=== PATIENT | male | born 1980 | race Two or more races ===

== ENCOUNTER 2024-07-10 08:47 | Inpatient (IN) | payer MEDICAID, OTHER ==
[~2024-07-10] VITALS: Ht 182.9 cm; Wt 79.8 kg
[2024-07-10] VITALS (12 sets, daily range): BP systolic 90–124; BP diastolic 35–75; PULSE 64–113; RESP 14–20; TEMP 98–99; O2SAT 99
--- NOTE | 2024-07-10 09:42 | ED.PDOC ---
GI ASSESSMENT HPI Comments 43 year old male presents to the ED with chief complaint of blood in stool. Patient reports that he has been experiencing blood in his stools with associated mucous, lower back pain, and right leg pain for the past 2 months. Patient relays that he takes Ibuprofen intermittently for his pain. Patient states he does not have a PCP at this time. Patient denies any N/V/D, dizziness, headache, fever, chills, or abdominal pain. Chief Complaint: GI Bleed Time Seen by MD: 09:39 Primary Care Provider: DENIES Reviewed Notes: Nurses Notes, Medications, Allergies Allergies: Coded Allergies: Penicillins (Verified Allergy, Unknown, 07/10/24) Information Source: Patient Mode of Arrival: Ambulatory Timing: Months Duration: Since onset Prehospital treatment: None Vomitus: None Stool: Blood Streaked, Other (Mucous) Severity: Moderate Recent: NSAID'S Recent Hx of: None Pain Location: None Modifying Factors: Nothing Associated sign and symptoms: Blood in Stool Past Medical History PAST MEDICAL HISTORY: Denies Surgical History: Denies all surgeries Family History Family History: Reviewed,noncontributory to illness Social History Smoker: Non-Smoker Alcohol: Denies ETOH Use Drugs: Marijuana Lives In: Home Constitutional: denies: chills, diaphoresis, fatigue, fever, malaise, sweats, weakness, others EENTM: denies: blurred vision, double vision, ear bleeding, ear discharge, ear drainage, ear pain, ear ringing, eye pain, eye redness, hearing loss, mouth pain, mouth swelling, nasal discharge, nose bleeding, nose congestion, nose pain, photophobia, tearing, throat pain, throat swelling, voice changes, others Respiratory: denies: cough, hemoptysis, orthopnea, SOB at rest, shortness of breath, SOB with excertion, stridor, wheezing, others Cardiovascular: denies: chest pain, dizzy spells, diaphoresis, Dyspnea on exertion, edema, irregular heart beat, left arm pain, lightheadedness, palpitations, PND, syncope, others Gastrointestinal: reports: blood streaked bowels; denies: abdomen distended, abdominal pain, constipated, diarrhea, dysphagia, difficulty swallowing, hematemesis, melena, nausea, poor appetite, poor fluid intake, rectal bleeding, rectal pain, vomiting, others Genitourinary: denies: burning, dysuria, flank pain, frequency, hematuria, incontinence, penile discharge, penile sore, pain, testicle pain, testicle swelling, urgency, others Neurological: denies: dizziness, fainting, headache, left sided numbness, left sided weakness, numbness, paresthesia, pre-existing deficit, right sided numbness, right sided weakness, seizure, speech problems, tingling, tremors, weakness, others Musculoskeletal: reports: others (Rt leg pain, lower back pain); denies: back pain, gout, joint pain, joint swelling, muscle pain, muscle stiffness, neck pain Integumetry: denies: bruises, change in color, change in hair/nails, dryness, laceration, lesions, lumps, rash, wounds, others Allergic/Immunocompromised: denies: Difficulty Healing, Frequent Infections, Hives, Itching, others Hematologic/Lymphatic: denies: anemia, blood clots, easy bleeding, easy bruising, swollen glands, others Endocrine: denies: excessive hunger, excessive sweating, excessive thirst, excessive urination, flushing, intolerance to cold, intolerance to heat, unexplained weight gain, unexplained weight loss, others Psychiatric: denies: anxiety, bipolar disorder, depression, hopeless, panic disorder, schizophrenia, sleepless, suicidal, others All Other Systems: Reviewed and Negative Physical Exam General Appearance: Moderate Distress, Normal HEENT: Normal ENT Inspection, PERRL/EOMI Neck: Full Range of Motion, Non-Tender, Normal, Normal Inspection Respiratory: Chest Non-Tender, Lungs Clear, No Accessory Muscle Use, No Respiratory Distress, Normal Breath Sounds Cardiovascular: No Edema, No JVD, No Murmur, No Gallop, Normal Peripheral Pulses, Regular Rate/Rhythm Breast Exam: Deferred Gastrointestinal: No Organomegaly, Non Tender, No Pulsatile Mass, Normal Bowel Sounds, Soft Genitalia: Deferred Pelvic: Deferred Rectal: Deferred Extremities: No calf tenderness, Normal capillary refill, Normal inspection, Normal range of motion, Non-tender, No pedal edema Musculoskeletal : Apperance: Normal Neurologic: Alert, estate conservator II-XII nml as Tested, No Motor Deficits, Normal Affect, Normal Mood, No Sensory Deficits Cerebellar Function: Normal Reflexes: Normal Skin: Dry, Pallor, Warm Peripheral Pulses: 3+ Radial (R), 3+ Radial (L) Lymphatic: No Adenopathy Was a procedure done? Was a procedure done?: No GI differential Dx Differential Diagnosis: Constipation, Diverticular disease, Esophagitis, Gastritis/PUD, Gastroenteritis X-Ray, Labs, Meds, VS Vital Signs Date Time Temp Pulse Resp B/P (MAP) Pulse Ox O2 Delivery O2 Flow Rate FiO2 07/10/24 09:57 16 99 Room Air* 0 21 07/10/24 09:51 91 16 99 Room Air 07/10/24 09:51 98.1 91 16 101/57 (72) 99 98.1 07/10/24 08:57 98.9 93 18 113/71 (85) 99 Lab Test 07/10/24 10:00 Range/Units White Blood Count 4.0 L 4.4-10.8 10^3/uL Red Blood Count 2.88 L 4.5-5.90 10^6/uL Hemoglobin 5.7 *L 13.5-17.5 g/dL Hematocrit 19.8 L 41.0-53.0 % Mean Corpuscular Volume 68.8 L 80.0-100.0 fL Mean Corpuscular Hemoglobin 19.7 L 28.0-32.0 pg Mean Corpuscular Hemoglobin Concent 28.6 L 32.0-36.0 g/dL Red Cell Distribution Width 23.5 H 11.8-14.3 % Platelet Count 467 H 140-450 10^3/uL Mean Platelet Volume 7.8 6.9-10.8 fL Neutrophils (%) (Auto) 37.0-80.0 % Lymphocytes (%) (Auto) 10.0-50.0 % Monocytes (%) (Auto) 0.0-12.0 % Basophils (%) (Auto) 0.0-2.0 % Neutrophils # (Auto) 1.6-8.6 10 ^3/uL Lymphocytes # (Auto) 0.4-5.4 10 ^3/uL Monocytes # (Auto) 0-1.3 10 ^3/uL Differential Total Cells Counted Pending Neutrophils % (Manual) Pending Band Neutrophils % (Manual) Pending Lymphocytes % (Manual) Pending Monocytes % (Manual) Pending Eosinophils % (Manual) Pending Basophils % (Manual) Pending Metamyelocytes % (manual) Pending Myelocytes % (Manual) Pending Promyelocytes % (Manual) Pending Blast Cells % (Manual) Pending Reactive Lymphocytes Pending Platelet Estimate Pending Sodium Level 140 136-145 mmol/L Potassium Level 4.3 3.5-5.1 mmol/L Chloride Level 106 98-107 mmol/L Carbon Dioxide Level 26 20-31 mmol/L Anion Gap 8 5-15 Blood Urea Nitrogen 10 9-23 mg/dL Creatinine 1.21 0.700-1.30 mg/dL Glomerular Filtration Rate Calc 75 >90 mL/min BUN/Creatinine Ratio 8.3 L 10.0-20.0 Serum Glucose 108 H 74-106 mg/dL Calcium Level 10.0 8.7-10.4 mg/dL Current Medications Medications (Trade) Dose Ordered Sig/Aden Route Start Time Stop Time Status Last Admin Pantoprazole Sodium (Protonix) 40 mg ONCE ONCE IV 07/10/24 09:30 07/10/24 09:32 DC 07/10/24 09:52 Patient alert. Complaining of bleeding per rectum. Vitals stable. Answering questions. Hemoglobin is low. Blood transfusion. Was given Protonix. Colonoscopy. GI consultation. Reviewed his history. Explained to the patient. Continue cardiac monitoring. Time of 1ST Reevaluation: 10:39 Reevaluation 1ST: Unchanged Patient Education/Counseling: Diagnosis, Treatment Family Education/Counseling: No Family Present Additional Information I reviewed the following notes from patient's past medical encounters: None The following tests were ordered, and results were reviewed by me: BMP, CBC Additional Information was gathered from interviewing the following independent historians: None I reviewed and agreed with the following test results read by other providers: None I discussed treatment and results with medical personnel. Departure 1 Departure Time of Disposition: 11:42 Impression: Primary Impression: GI bleed Qualified Codes: K92.2 - Gastrointestinal hemorrhage, unspecified Additional Impression: Severe anemia Disposition: ADMITTED INPATIENT Admit to: Med Surg Condition: Guarded Critical Care Note Critical Care Time?: Yes (90 min-critical care time only) Stability Stability form required: No Heart Score Heart Score: Heart Score Response (Comments) Value History N/A 0 EKG N/A 0 Age N/A 0 Risk Factors N/A 0 Troponin N/A 0 Total 0 I personally scribed for ANNETTE BRIGHT MD ([email or web address]) on 07/10/24 at 09:42. Electronically submitted by Han Velázquez ([email or web address]). ANNETTE BRIGHT MD Jul 10, 2024 09:42
[2024-07-10] MEDS: PANTOPRAZOLE 40 MG/10 ML VIAL INJ IV ONE (09:52)
[2024-07-10 10:38] LABS: Chloride 106 mmol/L (98-107); Hematocrit 19.8 % (41.0-53.0); Mean Corpuscular Hemoglobin 19.7 pg (28.0-32.0); Mean Corpuscular Hgb Conc. 28.6 g/dL (32.0-36.0); Mean Corpuscular Volume 68.8 fL (80.0-100.0); Platelet Count (auto) 467 10^3/uL (140-450); Potassium 4.3 mmol/L (3.5-5.1); Red Blood Cells 2.88 10^6/uL (4.5-5.90); Sodium 140 mmol/L (136-145)
[2024-07-10 10:39] LABS: Anion Gap 8 (5-15); Carbon Dioxide 26 mmol/L (20-31)
[2024-07-10 10:43] LABS: Red Cell Distribution Width 23.5 % (11.8-14.3)
[2024-07-10 10:44] LABS: BUN/Creatinine Ratio 8.3 (10.0-20.0); Band Neutrophils % (manual) 0; Basophils % (manual) 0 (0.0-2.0); Blast Cells 0; Blood Urea Nitrogen 10 mg/dL (9-23); Hemoglobin 5.7 g/dL (13.5-17.5); Metamyelocytes % 0; Myelocytes % 0; Promyelocytes % 0; Reactive Lymphocytes 0
[2024-07-10 10:45] LABS: Glucose 108 mg/dL (74-106)
[2024-07-10 12:22] LABS: Eosinophils % (manual) 2 (0-7); Lymphocytes % (manual) 15 (10.0-50.0); Monocytes % (manual) 7 (0-12)
[2024-07-10 12:23] LABS: Hypochromia Marked; Platelet Estimate Adequate
[2024-07-10 12:24] LABS: Anisocytosis Slight
[2024-07-10] MEDS ORDERED: ONDANSETRON HCL 4 MG/2 ML VIAL IV PRN (15:00)
[2024-07-10] MEDS ORDERED: ACETAMINOPHEN 325 MG TAB PO PRN (15:00)
--- NOTE | 2024-07-10 15:01 | DVHHP2 ---
History of Present Illness Reason for Visit: Blood in stool History of Present Illness Jett Padilla is a 43-year-old male with past medical history of left kidney tumor and hemorrhoids who presents to the ED for blood in stool, right leg pain, back pain, and fatigue x2 months. Patient reports that he did not come in to the ED sooner because he had no insurance also has not seen a primary care physician. Patient states that he has been passing large clots daily with his bowel movements. Patient denies any chest pain, shortness of breath, recent trauma or injury, recent illness, nausea, vomiting, fevers, chills, dizziness, and lightheadedness. GI: Hemorrhoids Renal/: Other (Left kidney tumor) Past Surgical History: None Family History: Cancer, Other (Grandfather with prostate cancer) Smoke: Quit ALCOHOL: none Drugs: Other (Quit marijuana) Lives: with Family Domestic Violence: Neg Review of Systems Constitutional: Yes: Other (Fatigue); No: Fever, Chills, Sweats, Weakness, Malaise Eyes: No: Pain, Vision change, Conjunctivae inflammation, Eyelid inflammation, Other, Redness ENT: No: Ear pain, Ear discharge, Nose pain, Nose discharge, Nose congestion, Mouth pain, Mouth swelling, Throat pain, Throat swelling, Other Respiratory: No: Cough, Dry, Shortness of breath, SOB with excertion, Wheezing, Hemoptysis, Pleuritic Pain, Sputum, Wheezing, Other Cardiovascular: No: Chest Pain, Palpitations, Orthopnea, Paroxysmal Noc. Dyspnea, Edema, Lt Headedness, Other Gastrointestinal: Hematochezia; No: Nausea, Vomiting, Abdominal Pain, Diarrhea, Constipation, Melena, Other Genitourinary: No Dysuria, No Frequency, No Incontinence, No Hematuria, No Retention, No Other Musculoskeletal: back pain, leg pain; No: other, neck pain, shoulder pain, arm pain, hand pain, foot pain Skin: No: Rash, Lesions, Jaundice, Bruising, Other Neurological: No: Weakness, Numbness, Incoordination, Change in speech, Confusion, Seizures, Other Allergies: Coded Allergies: Penicillins (Verified Allergy, Unknown, 07/10/24) Exam Vital Signs Vital Signs Date Time Temp Pulse Resp B/P (MAP) Pulse Ox O2 Delivery O2 Flow Rate FiO2 07/10/24 12:43 98.2 76 16 111/60 (77) 99 98.2 07/10/24 09:57 Room Air* 0 21 General Appearance: Alert, Oriented X3, Cooperative, No acute distress HEENT: Atraumatic, PERRLA, EOMI, Mucous membr. moist/pink Respiratory: Clear to auscultation, Normal air movement Cardiovascular: Regular rate, Normal S1, Normal S2, No murmurs Abdominal: Normal bowel sounds, Soft, No tenderness, No hepatospenomegaly, No masses Extremities: No clubbing, No cyanosis, No edema, Normal pulses, No tenderness/swelling Skin: No rashes, No breakdown, No significant lesion Neuro: Normal gait, Normal speech, Strength at 5/5 X4 ext, Normal tone, Sensation intact Psych/Mental Status: Mental status NL, Mood NL Labs/Xrays Labs Test 07/10/24 10:00 Range/Units White Blood Count 4.0 L 4.4-10.8 10^3/uL Red Blood Count 2.88 L 4.5-5.90 10^6/uL Hemoglobin 5.7 *L 13.5-17.5 g/dL Hematocrit 19.8 L 41.0-53.0 % Mean Corpuscular Volume 68.8 L 80.0-100.0 fL Mean Corpuscular Hemoglobin 19.7 L 28.0-32.0 pg Mean Corpuscular Hemoglobin Concent 28.6 L 32.0-36.0 g/dL Red Cell Distribution Width 23.5 H 11.8-14.3 % Platelet Count 467 H 140-450 10^3/uL Mean Platelet Volume 7.8 6.9-10.8 fL Neutrophils (%) (Auto) 37.0-80.0 % Lymphocytes (%) (Auto) 10.0-50.0 % Monocytes (%) (Auto) 0.0-12.0 % Basophils (%) (Auto) 0.0-2.0 % Neutrophils # (Auto) 1.6-8.6 10 ^3/uL Lymphocytes # (Auto) 0.4-5.4 10 ^3/uL Monocytes # (Auto) 0-1.3 10 ^3/uL Differential Total Cells Counted 100.0 100 Neutrophils % (Manual) 76 37.0-80.0 Band Neutrophils % (Manual) 0 Lymphocytes % (Manual) 15 10.0-50.0 Monocytes % (Manual) 7 0-12 Eosinophils % (Manual) 2 0-7 Basophils % (Manual) 0 0.0-2.0 Metamyelocytes % (manual) 0 Myelocytes % (Manual) 0 Promyelocytes % (Manual) 0 Blast Cells % (Manual) 0 Reactive Lymphocytes 0 Platelet Estimate Adequate Hypochromasia (manual) Marked Anisocytosis (manual) Slight Microcytosis Marked Sodium Level 140 136-145 mmol/L Potassium Level 4.3 3.5-5.1 mmol/L Chloride Level 106 98-107 mmol/L Carbon Dioxide Level 26 20-31 mmol/L Anion Gap 8 5-15 Blood Urea Nitrogen 10 9-23 mg/dL Creatinine 1.21 0.700-1.30 mg/dL Glomerular Filtration Rate Calc 75 >90 mL/min BUN/Creatinine Ratio 8.3 L 10.0-20.0 Serum Glucose 108 H 74-106 mg/dL Calcium Level 10.0 8.7-10.4 mg/dL Assessment/Plan Assessment/Plan Assessment/Plan: Rule out GIB Right leg pain Intractable back pain Hematochezia Type and screen PRBC transfuse for hemoglobin less than 7.0 Protonix given in ED Stool occult Labs A.m. labs GI consult Antiemetics Pain management UA CT A/P History of hemorrhoids Follow up outpatient with PCP History of left kidney tumor Follow up outpatient with PCP FEN/PPX NPO IVf PUD prophylaxis-Protonix DVT ppx -patient bleeding held Admit to med surg Discussed plan of care with patient and nurse No home medications to reconcile Plan discussed with: Patient My Orders Orders - ARANZA MAJOR SURGICAL MANAGER Procedure Category Date Status Time * Gi D[facility] [place] [facility] Puncher CONS 07/10/24 Transmitted 14:29 Stool Occult Blood LAB 07/10/24 Logged 14:29 Admit ADMIT 07/10/24 Verified 14:47 Allergies MENDOZA 07/10/24 Verified 14:47 Code Status CODE 07/10/24 Verified 14:47 0.9% Ns 1000 Ml PHA 07/10/24 Verified 15:00 Hydrocodone-Acet PHA 07/10/24 Verified 5/325mg Tab ([place] 15:00 Ondansetron Hcl PHA 07/10/24 Verified (Zofran) 15:00 Complete Blood Count LAB 07/11/24 Verified 04:00 Comprehensive LAB 07/11/24 Verified Metabolic Panel 04:00 Npo (Nothing By DIET 07/10/24 Verified Mouth) Diet Dinner Acetaminophen Tablet PHA 07/10/24 Verified (Tylenol Tablet) 15:00 Date of Service: Jul 10, 2024 Billing Provider: ARANZA MAJOR Common Visit Codes: [id number] INP/OBS CARE (HIGH) RAANZA MAJOR Jul 10, 2024 15:01
[2024-07-10 19:03] LABS: Urine Bacteria None Seen /hpf (None Seen)
[2024-07-10] MEDS: SODIUM CHLORIDE 0.9% 1,000 ML IV SCH (19:15)
[2024-07-10 19:37] LABS: Urine Blood Negative /uL (Negative); Urine Clarity Clear (Clear); Urine Color Colorless (Yellow); Urine Protein, UAD Negative (Negative); Urine Specific Gravity 1.011 (1.001-1.035); Urine Squamous Epithelial Cell None Seen /hpf (<5); Urine Urobilinogen Normal (Negative); Urine WBC <1 /hpf (0 - 3)
--- NOTE | 2024-07-10 19:39 | DVH ---
Exam: CT CT AB PEL WO CON-NO ORAL OR IV History: pain Comparison Study: None TECHNIQUE: Multidetector CT of the abdomen and pelvis was performed from lung bases to pubic symphysi s. Imaging was performed without IV contrast. Axial, coronal, and sagittal multiplanar reformats were obtained from the axial data set by the technologist. RADIATION DOSE: DLP 368.11 mGy.cm; CTDI vol 7.04 mGy. Findings: Limited evaluation given noncontrast technique. Lungs: The lung bases are clear. Heart: No cardiomegaly or pericardial effusion. Liver: The liver measures 18.8 cm in craniocaudal dimension. Gallbladder: Unremarkable. Spleen: Unremarkable Pancreas: Unremarkable Adrenals: Unremarkable Kidneys: Left renal exophytic lesion is incompletely characterized given noncontrast technique. GI tract: Unremarkable : Unremarkable. Vasculature: Unremarkable Lymphadenopathy: Absent Peritoneum: No ascites Musculoskeletal: Mild multilevel degenerative changes of the thoracolumbar spine. Grade 1 retrolisthe sis of L5 on S1 with severe degenerative disc disease. Soft tissues: Unremarkable Impression: 1. Limited evaluation given noncontrast technique. 2. No acute abdominopelvic abnormalities. 3. Hepatomegaly. 4. Left renal exophytic lesion is incompletely characterized given noncontrast technique. Consider a nonemergent, outpatient renal protocol CT for further evaluation.
[2024-07-10 22:06] LABS: Basophils # (auto) 0.1 10 ^3/uL (0-0.2); Eosinophils # (auto) 0.1 10 ^3/uL (0-0.8); Eosinophils % (auto) 1.5 % (0.0-7.0); Mean Corpuscular Volume 73.1 fL (80.0-100.0); Nucleated Red Blood Cells % 0.2 %; Red Blood Cells 3.62 10^6/uL (4.5-5.90); White Blood Cell 5.2 10^3/uL (4.4-10.8)
[2024-07-10 22:08] LABS: Basophils % (auto) 1.1 % (0.0-2.0); Hematocrit 26.4 % (41.0-53.0); Lymphocytes # (auto) 1.6 10 ^3/uL (0.4-5.4); Lymphocytes % (auto) 31.3 % (10.0-50.0); Mean Corpuscular Hemoglobin 22.1 pg (28.0-32.0); Mean Corpuscular Hgb Conc. 30.2 g/dL (32.0-36.0); Monocytes # (auto) 0.5 10 ^3/uL (0-1.3); Monocytes % (auto) 10.1 % (0.0-12.0); Neutrophils # (auto) 2.9 10 ^3/uL (1.6-8.6); Platelet Count (auto) 403 10^3/uL (140-450)
[2024-07-10 22:44] LABS: Red Cell Distribution Width 23.3 % (11.8-14.3)
[2024-07-11 07:31] LABS: Alanine Aminotransferase 21 U/L (7-40); Albumin 4.3 g/dL (3.2-4.8); Anion Gap 6 (5-15); BUN/Creatinine Ratio 10.1 (10.0-20.0); Blood Urea Nitrogen 10 mg/dL (9-23); Calcium 9.9 mg/dL (8.7-10.4); Carbon Dioxide 27 mmol/L (20-31); Glucose 88 mg/dL (74-106); Potassium 4.2 mmol/L (3.5-5.1); Sodium 141 mmol/L (136-145)
[2024-07-11 07:32] LABS: Alkaline Phosphatase 45 U/L (46-116); Aspartate Aminotransferase 12 U/L (13-40); Bilirubin, Total 1.5 mg/dL (0.2-1.0); Chloride 108 mmol/L (98-107); Total Protein 6.7 g/dL (5.7-8.2)
[2024-07-11 07:34] LABS: Hematocrit 25.6 % (41.0-53.0); Hemoglobin 7.8 g/dL (13.5-17.5); Mean Corpuscular Hemoglobin 22.1 pg (28.0-32.0); Mean Corpuscular Hgb Conc. 30.4 g/dL (32.0-36.0); Mean Corpuscular Volume 72.7 fL (80.0-100.0); Platelet Count (auto) 393 10^3/uL (140-450); Red Blood Cells 3.51 10^6/uL (4.5-5.90); Red Cell Distribution Width 23.7 % (11.8-14.3); White Blood Cell 5.2 10^3/uL (4.4-10.8)
[2024-07-11 07:45] LABS: Band Neutrophils % (manual) 0; Basophils % (manual) 0 (0.0-2.0); Blast Cells 0; Metamyelocytes % 0; Myelocytes % 0; Promyelocytes % 0; Reactive Lymphocytes 0
[2024-07-11 08:44] LABS: Eosinophils % (manual) 2 (0-7); Hypochromia Moderate; Lymphocytes % (manual) 25 (10.0-50.0); Monocytes % (manual) 8 (0-12)
[2024-07-11 08:45] LABS: Anisocytosis Slight
[2024-07-11 08:47] LABS: Platelet Estimate Adequate
[2024-07-11] MEDS: PANTOPRAZOLE 40 MG/10 ML VIAL INJ IV SCH ×2 (10:20→21:35)
--- NOTE | 2024-07-11 13:08 | DVH ---
INDICATION: ruq u/s - eval bile duct for elevated LFTs TECHNIQUE: Multiple real-time sonographic images of the abdomen were obtained. COMPARISON: 07/10/2024 FINDINGS: The liver is homogenous in echogenicity. The liver measures 15cm. No intrahepatic biliary ductal dilatation is noted. The gallbladder wall measures 0.2 cm and is unremarkable. No gallstones or sludge is seen. The com mon duct measures 0.2 cm and is unremarkable. No pericholecystic fluid is noted. The right kidney measures 11.7 cm. No hydronephrosis. The left kidney measures 11.6 cm. No hydronep hrosis. There is a mass in the left kidney measuring 3.5 cm. The spleen measures 10.0 cm, within normal limits. The echogenicity is within normal limits. The pancreas is not well visualized due to obscuration from bowel gas. The visualized portions of the IVC and aorta are grossly unremarkable. IMPRESSION: Mass in the left kidney measures 3.5 cm and appears solid and indeterminate. Recommend further evalu ation with CT or MRI renal protocol.
--- NOTE | 2024-07-11 13:13 | DVHPN2 ---
Subjective 07/11- Patient, status post 2 units PRBC. Stable. Patient asymptomatic. Continues to when he has moment. He is noticed that his have been constipated side. He also has various colors of, blood. He red blood, dark blood, melena. Denies taking iron tablets. He takes pain pills, ibuprofen twice monthly strengthening. Denied any history IV drug use or dependence. Reviewed: H&P Changes from previous H/P or p: No Changes General: Per HPI Objective Vitals Vital Signs Date Time Temp Pulse Resp B/P (MAP) Pulse Ox O2 Delivery O2 Flow Rate FiO2 07/11/24 12:06 66 16 122/69 (86) 99 07/11/24 12:01 98.6 98.6 07/10/24 19:55 Room Air* 0 21 Intake/Output Intake and Output 07/11/24 07:00 Intake Total 1320 ml Output Total 800 ml Balance 520 ml Intake Oral 120 ml Blood Product 1200 ml Output Urine Total 800 ml # Voids 2 Exam GEN: Healthy appearing, well-developed, NAD. HEENT: NC/AT; MMM. CV: RRR, no m/r/g. LUNGS: CTAB, no w/r/c. ABD: Soft, NT/ND, NBS, no masses or organomegaly. EXT: skin Warm, well perfused. no rashes. No clubbing, cyanosis, or edema. P araspinal tenderness on left L4 NEURO: Ambulating with no limitations. No focal deficits. Medications Current Medications Medications Dose Ordered Sig/Aden Route Start Time Stop Time Status Last Admin Dose Admin Sodium Chloride 1,000 ml @ 70 mls/hr [id number] IV 07/10/24 15:00 07/10/24 19:15 70 MLS/HR Acetaminophen/ Hydrocodone Bitart 1 tab Q4HP PRN PO 07/10/24 15:00 Ondansetron HCl 4 mg Q4HP PRN IV 07/10/24 15:00 Acetaminophen 650 mg Q6HP PRN PO 07/10/24 15:00 Pantoprazole Sodium 40 mg BID IV 07/11/24 22:00 Laboratory Results Laboratory Tests 07/11/24 05:53 Chemistry Test 07/11/24 05:53 Albumin 4.3 g/dL (3.2-4.8) Calcium Level 9.9 mg/dL (8.7-10.4) Total Protein 6.7 g/dL (5.7-8.2) LFT Test 07/11/24 05:53 Alanine Aminotransferase (ALT) 21 U/L (7-40) Alkaline Phosphatase 45 U/L (46-116) L Aspartate Amino Transferase (AST) 12 U/L (13-40) L Total Bilirubin 1.5 mg/dL (0.2-1.0) H Urinalysis Test 07/10/24 18:44 Urine Color Colorless (Yellow) Urine Clarity Clear (Clear) Urine pH 7.0 (5.0-9.0) Urine Specific [place] 1.011 (1.001-1.035) Urine Protein Negative (Negative) Urine Ketones Negative (Negative) Urine Blood Negative /uL (Negative) Urine Nitrite Negative (Negative) Urine Bilirubin Negative (Negative) Urine Urobilinogen Normal mg/dL (Negative) Urine Leukocyte Esterase Negative /uL (Negative) Urine RBC None seen /hpf (0 - 3) Urine WBC <1 /hpf (0 - 3) Urine Squamous Epithelial Cells None seen /hpf (<5) Urine Bacteria None seen /hpf (None Seen) Urine Glucose Normal mg/dL (Normal) Labs and/or images reviewed: Labs reviewed by me, Image(s) reviewed by me Assessment/Plan Assessment/Plan # ABLa: Hemoglobin 5.7 on admit, typed/screened and given 2 units PRBC on follow-up 8.0 stable. Two large-bore IVs. Stool occult blood pending. Clear liquid diet, GI consulted. IV PPI b.i.d. started. CT abdomen pelvis done without con, no acute findings and cant find source of bleeding. # hepatomegaly: CT abdomen on admit showing hepatomegaly. # Severe anemia, status post transfusion: See above # Acute on chronic lower GI bleed: See above # hyperbilirubinemia: T bili 1.5, elevated We will get RUQ ultrasound. hep panel pend # Chronic constipation: We will consider outpatient bowel regimen. # history of hemorrhoids: Diet CLD DVT prophylaxis ambulating GI prophylaxis PPI IV b.i.d. Med [facility] Full Code Plan discussed with: Patient My Orders Orders - DYLON CELIS MD Procedure Category Date Status Time Pantoprazole PHA 07/11/24 In Process (Protonix) 22:00 Abdomen Complete US 1/16/25 Taken Sonogram 11:23 Clear Liq Diet DIET 07/11/24 Verified Lunch Date of Service: Jul 11, 2024 Billing Provider: DYLON CELIS MD Common Visit Codes: [id number] INP/OBS CARE(HIGH) DYLON CELIS MD Jul 11, 2024 13:13
[2024-07-11 15:56] VITALS: BP 106/63; PULSE 58; RESP 16; TEMP 98.2; O2SAT 100
[2024-07-11 17:03] VITALS: BP 118/78; PULSE 68; RESP 16; TEMP 98.4; O2SAT 99
[2024-07-11 20:00] VITALS: PULSE 57; RESP 18; O2SAT 100
[2024-07-11 21:00] VITALS: BP 116/76; PULSE 57; RESP 18; TEMP 98; O2SAT 100
[2024-07-12] VITALS (7 sets, daily range): BP systolic 101–116; BP diastolic 57–76; PULSE 53–77; RESP 18–20; TEMP 97.8–98.4; O2SAT 98–100
[2024-07-12 07:07] LABS: Eosinophils # (auto) 0.1 10 ^3/uL (0-0.8); Hemoglobin 8.2 g/dL (13.5-17.5); Lymphocytes # (auto) 0.8 10 ^3/uL (0.4-5.4); Monocytes # (auto) 0.5 10 ^3/uL (0-1.3)
[2024-07-12 07:09] LABS: Basophils # (auto) 0.1 10 ^3/uL (0-0.2); Basophils % (auto) 1.4 % (0.0-2.0); Eosinophils % (auto) 2.1 % (0.0-7.0); Hematocrit 26.8 % (41.0-53.0); Lymphocytes % (auto) 19.3 % (10.0-50.0); Mean Corpuscular Hgb Conc. 30.6 g/dL (32.0-36.0); Mean Corpuscular Volume 71.9 fL (80.0-100.0); Monocytes % (auto) 11.8 % (0.0-12.0); Neutrophils # (auto) 2.6 10 ^3/uL (1.6-8.6); Neutrophils % (auto) 65.4 % (37.0-80.0); Nucleated Red Blood Cells % 0.5 %; Platelet Count (auto) 395 10^3/uL (140-450); Red Blood Cells 3.73 10^6/uL (4.5-5.90); Red Cell Distribution Width 24.5 % (11.8-14.3); White Blood Cell 3.9 10^3/uL (4.4-10.8)
[2024-07-12 07:23] LABS: Alanine Aminotransferase 21 U/L (7-40); Anion Gap 7 (5-15); BUN/Creatinine Ratio 9.1 (10.0-20.0); Blood Urea Nitrogen 9 mg/dL (9-23); Calcium 10.3 mg/dL (8.7-10.4); Carbon Dioxide 26 mmol/L (20-31); Chloride 106 mmol/L (98-107); Potassium 4.1 mmol/L (3.5-5.1); Sodium 139 mmol/L (136-145)
[2024-07-12 07:24] LABS: Albumin 4.6 g/dL (3.2-4.8); Aspartate Aminotransferase 16 U/L (13-40); Bilirubin, Total 0.9 mg/dL (0.2-1.0)
[2024-07-12 07:53] LABS: Alkaline Phosphatase 45 U/L (46-116); Glucose 80 mg/dL (74-106)
--- NOTE | 2024-07-12 10:57 | DVHCONRES ---
Date Seen: Jul 12, 2024 Resident Creating Document: RYLAND TODD RESIDENT Referring Physician Dr. Bagley. Reason for Consultation GI bleed. History of Present Illness Jett Padilla, a 43-year-old male with a history of a left kidney tumor and hemorrhoids, presents to the ED with blood in his stool, right leg pain, back pain, and fatigue for the past two months. He delayed seeking medical care due to lack of insurance and has not seen a primary care physician. He reports passing large clots daily with bowel movements but denies chest pain, shortness of breath, recent trauma, illness, nausea, vomiting, fevers, chills, dizziness, and lightheadedness. His past medical history includes hemorrhoids and a left kidney tumor, with no past surgeries. He has a family history of cancer (grandfather with prostate cancer), has quit smoking and marijuana, does not consume alcohol, and lives with his family. Patient previously was evaluated and followed in the [facility] for hemorrhoidectomy for the symptomatic hemorrhoids but could not further follow up due to the lack of insurance and homelessness. Past Medical History GI: Hemorrhoids since 2018 Renal/: Other (Left kidney tumor) Back pain Past Surgical History Denies. Family History: Patient reports no known family medical history. Family History NO GI cancer history but grandfather had prostate cancer Allergies: Coded Allergies: Penicillins (Verified Allergy, Unknown, 07/10/24) Home Meds Active Scripts Psyllium (Metamucil) 0.36 Gm Cap, 0.36 GM PO BID for 30 Days, #60 CAP 0 Refills Prov:DYLON CELIS MD 07/12/24 Lactulose (Lactulose) 10 Gm/15 Ml Arlene, 10 GM PO DAILY for 14 Days, #236 ML 0 Refills Prov:DYLON CELIS MD 07/12/24 Current Medications Current Medications Medications (Trade) Dose Ordered Sig/Aden Route PRN Reason Start Time Stop Time Status Last Admin Pantoprazole Sodium (Protonix) 40 mg BID IV 07/11/24 22:00 07/12/24 09:35 Review of Systems CONSTITUTIONAL: Fever, night sweats, weight loss, Lymphadenopathy, ecchymoses, fatigue: Negative DERMATOLOGIC: Rash, New/growing/changing skin lesions: Negative HEENT: Vision change, eye pain, Rhinorrhea, sinus pain, epistaxis, dysphagia, odynophagia, globus sensation, Change in hearing, tinnitus, vertigo, otalgia, Dental problems, oral ulcers or lesions: : Negative ENDOCRINE: Weight change, heat or cold intolerance, tremor, insomnia, neck pain or swelling, Polyuria, polydipsia, polyphagia, Abnormal hair growth, change in nails: Negative CARDIOVASCULAR: Chest pain, palpitations, syncope, Edema, cyanosis, claudic ation, Orthopnea, paroxysmal nocturnal dyspnea: Negative PULMONARY: Shortness of breath, dyspnea with exertion, Cough, hemoptysis, wheezing, chest pain : Negative GI: Nausea, vomiting, diarrhea, melena, hematochezia, Change in appetite, abdominal pain, change in bowel habits or stools : Dysuria, frequency, urgency, Urinary incontinence, hematuria, foamy urine, nocturia, Change in libido, erectile dysfunction, Change in menses, dysmenorrhea, dyspaerunia, pelvic pain: : Negative MUSCULOSKELETAL: Joint swelling or pain, muscle pain, back pain: NEUROLOGIC: Headache, scotoma, Change in smell or taste, change in facial muscles, Muscle weakness, paresthesias, anesthesia, Ataxia, change in speech: Negative PSYCHIATRIC: Depression, anxiety, hallucinations, dipti, suicidal/homicidal thoughts, Binging, purging: Negative Vital Signs Vital Signs Date Time Temp Pulse Resp B/P (MAP) Pulse Ox O2 Delivery O2 Flow Rate FiO2 07/12/24 09:00 98.1 71 20 103/76 (85) 100 98.1 07/12/24 08:00 Room Air* 0 21 Physical Exam GENERAL APPEARANCE: Well developed, well nourished, alert and cooperative, and appears to be in no acute distress. HEENT: Oral cavity and pharynx normal. No inflammation, swelling, exudate, or lesions. Teeth and gingiva in good general condition. NECK: Neck supple, non-tender without lymphadenopathy, masses or thyromegaly. CARDIAC: Normal S1 and S2. No S3, S4 or murmurs. Rhythm is regular. There is no peripheral edema, cyanosis or pallor. Extremities are warm and well perfused. Capillary refill is less than 2 seconds. No carotid bruits. LUNGS: Clear to auscultation and percussion without rales, rhonchi, wheezing or diminished breath sounds. ABDOMEN: Positive bowel sounds. Soft, nondistended, nontender. No guarding or rebound. No masses. MUSKULOSKELETAL: Adequately aligned spine. ROM intact spine and extremities. No joint erythema or tenderness. Normal muscular development. Normal gait. EXTREMITIES: No significant deformity or joint abnormality. No edema. Peripheral pulses intact. No varicosities. NEUROLOGICAL: CN II-XII intact. Strength and sensation symmetric and intact throughout. Reflexes 2+ throughout. Cerebellar testing normal. PSYCHIATRIC: The mental examination revealed the patient was oriented to person, place, and time. The patient was able to demonstrate good judgement and reason, without hallucinations, abnormal affect or abnormal behaviors during the examina tion. Patient is not suicidal. Labs/Diagnostic Data Labs Test 07/12/24 06:22 07/11/24 12:49 07/11/24 05:53 07/10/24 18:44 Range/Units White Blood Count 3.9 L 4.4-10.8 10^3/uL Red Blood Count 3.73 L 4.5-5.90 10^6/uL Hemoglobin 8.2 L 13.5-17.5 g/dL Hematocrit 26.8 L 41.0-53.0 % Mean Corpuscular Volume 71.9 L 80.0-100.0 fL Mean Corpuscular Hemoglobin 22.0 L 28.0-32.0 pg Mean Corpuscular Hemoglobin Concent 30.6 L 32.0-36.0 g/dL Red Cell Distribution Width 24.5 H 11.8-14.3 % Platelet Count 395 140-450 10^3/uL Mean Platelet Volume 8.0 6.9-10.8 fL Neutrophils (%) (Auto) 65.4 37.0-80.0 % Lymphocytes (%) (Auto) 19.3 10.0-50.0 % Monocytes (%) (Auto) 11.8 0.0-12.0 % Eosinophils (%) (Auto) 2.1 0.0-7.0 % Basophils (%) (Auto) 1.4 0.0-2.0 % Neutrophils # (Auto) 2.6 1.6-8.6 10 ^3/uL Lymphocytes # (Auto) 0.8 0.4-5.4 10 ^3/uL Monocytes # (Auto) 0.5 0-1.3 10 ^3/uL Eosinophils # (Auto) 0.1 0-0.8 10 ^3/uL Basophils # (Auto) 0.1 0-0.2 10 ^3/uL Nucleated Red Blood Cells 0.5 % Sodium Level 139 136-145 mmol/L Potassium Level 4.1 3.5-5.1 mmol/L Chloride Level 106 98-107 mmol/L Carbon Dioxide Level 26 20-31 mmol/L Anion Gap 7 5-15 Blood Urea Nitrogen 9 9-23 mg/dL Creatinine 0.99 0.700-1.30 mg/dL Glomerular Filtration Rate Calc 96 >90 mL/min BUN/Creatinine Ratio 9.1 L 10.0-20.0 Serum Glucose 80 74-106 mg/dL Calcium Level 10.3 8.7-10.4 mg/dL Total Bilirubin 0.9 0.2-1.0 mg/dL Aspartate Amino Transferase (AST) 16 13-40 U/L Alanine Aminotransferase (ALT) 21 7-40 U/L Alkaline Phosphatase 45 L 46-116 U/L Total Protein 7.0 5.7-8.2 g/dL Albumin 4.6 3.2-4.8 g/dL Stool Occult Blood Positive Negative Stool Occult Blood Sample #3 Negative Differential Total Cells Counted 100.0 100 Neutrophils % (Manual) 65 37.0-80.0 Band Neutrophils % (Manual) 0 Lymphocytes % (Manual) 25 10.0-50.0 Monocytes % (Manual) 8 0-12 Eosinophils % (Manual) 2 0-7 Basophils % (Manual) 0 0.0-2.0 Metamyelocytes % (manual) 0 Myelocytes % (Manual) 0 Promyelocytes % (Manual) 0 Blast Cells % (Manual) 0 Reactive Lymphocytes 0 Platelet Estimate Adequate Hypochromasia (manual) Moderate Anisocytosis (manual) Slight Microcytosis Moderate Schistocytes Few Urine Color Colorless Yellow Urine Clarity Clear Clear Urine pH 7.0 5.0-9.0 Urine Specific [place] 1.011 1.001-1.035 Urine Protein Negative Negative Urine Ketones Negative Negative Urine Blood Negative Negative /uL Urine Nitrite Negative Negative Urine Bilirubin Negative Negative Urine Urobilinogen Normal Negative mg/dL Urine Leukocyte Esterase Negative Negative /uL Urine RBC None seen 0 - 3 /hpf Urine WBC <1 0 - 3 /hpf Urine Squamous Epithelial Cells None seen <5 /hpf Urine Bacteria None seen None Seen /hpf Urine Glucose Normal Normal mg/dL Assessment GI Assessment: # chronic constipation # hemorrhoidal bleed # symptomatic anemia # hepatomegaly # 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 # hyperbilirubinemia improved. # chronic back pain # mild malnutrition # homelessness Plan/Recommendation GI Plan: # Medications: As needed MiraLax 17 g daily # Diet: HIgh fiber mechanical soft diet to continue. # plan procedure: Obtain scope results from [facility]. Scheduled colon cancer screening colonoscopy pending. # Labs: Follow the hepatitis panel. # please schedule follow up with GI as outpatient with Dr. Anaya in 1-2 weeks. # please follow with general surgery outpatient to evaluate for hemorrhoidectomy. Thank you so much for the opportunity to consult on your patient. GI team signing off the patient. In case of any questions or concerns please feel free to reach out. Case an action plan discussed with Dr. Lori Anaya. Complex care planning needed total 49 minutes of detailed discussion. The patient and caregiver team agreed to the plan. Plan discussed with: Patient, Other RYLAND TODD RESIDENT Jul 12, 2024 10:57
[2024-07-12] MEDS ORDERED: LACT10SO3 PO (14:03)
[2024-07-12] MEDS ORDERED: PSYL0.524 PO (14:03)
--- NOTE | 2024-07-12 14:32 | DVHDS2 ---
Discharge Summary Date of Admission Jul 10, 2024 at 14:47 Date of Discharge: Jul 12, 2024 Admitting Diagnosis severe anemia Labs/Diagnostic Data: Laboratory Results Test 07/12/24 06:22 07/11/24 12:49 07/11/24 05:53 07/10/24 18:44 White Blood Count 3.9 10^3/uL (4.4-10.8) Red Blood Count 3.73 10^6/uL (4.5-5.90) Hemoglobin 8.2 g/dL (13.5-17.5) Hematocrit 26.8 % (41.0-53.0) Mean Corpuscular Volume 71.9 fL (80.0-100.0) Mean Corpuscular Hemoglobin 22.0 pg (28.0-32.0) Mean Corpuscular Hemoglobin Concent 30.6 g/dL (32.0-36.0) Red Cell Distribution Width 24.5 % (11.8-14.3) Platelet Count 395 10^3/uL (140-450) Mean Platelet Volume 8.0 fL (6.9-10.8) Neutrophils (%) (Auto) 65.4 % (37.0-80.0) Lymphocytes (%) (Auto) 19.3 % (10.0-50.0) Monocytes (%) (Auto) 11.8 % (0.0-12.0) Eosinophils (%) (Auto) 2.1 % (0.0-7.0) Basophils (%) (Auto) 1.4 % (0.0-2.0) Neutrophils # (Auto) 2.6 10 ^3/uL (1.6-8.6) Lymphocytes # (Auto) 0.8 10 ^3/uL (0.4-5.4) Monocytes # (Auto) 0.5 10 ^3/uL (0-1.3) Eosinophils # (Auto) 0.1 10 ^3/uL (0-0.8) Basophils # (Auto) 0.1 10 ^3/uL (0-0.2) Nucleated Red Blood Cells 0.5 % Reticulocyte Count (auto) 0.90 % (0.5-1.5) Sodium Level 139 mmol/L (136-145) Potassium Level 4.1 mmol/L (3.5-5.1) Chloride Level 106 mmol/L (98-107) Carbon Dioxide Level 26 mmol/L (20-31) Anion Gap 7 (5-15) Blood Urea Nitrogen 9 mg/dL (9-23) Creatinine 0.99 mg/dL (0.700-1.30) Glomerular Filtration Rate Calc 96 mL/min (>90) BUN/Creatinine Ratio 9.1 (10.0-20.0) Serum Glucose 80 mg/dL (74-106) Calcium Level 10.3 mg/dL (8.7-10.4) Total Bilirubin 0.9 mg/dL (0.2-1.0) Aspartate Amino Transferase (AST) 16 U/L (13-40) Alanine Aminotransferase (ALT) 21 U/L (7-40) Alkaline Phosphatase 45 U/L (46-116) Total Protein 7.0 g/dL (5.7-8.2) Albumin 4.6 g/dL (3.2-4.8) Stool Occult Blood Positive (Negative) Stool Occult Blood Sample #3 (Negative) Differential Total Cells Counted 100.0 (100) Neutrophils % (Manual) 65 (37.0-80.0) Band Neutrophils % (Manual) 0 Lymphocytes % (Manual) 25 (10.0-50.0) Monocytes % (Manual) 8 (0-12) Eosinophils % (Manual) 2 (0-7) Basophils % (Manual) 0 (0.0-2.0) Metamyelocytes % (manual) 0 Myelocytes % (Manual) 0 Promyelocytes % (Manual) 0 Blast Cells % (Manual) 0 Reactive Lymphocytes 0 Platelet Estimate Adequate Hypochromasia (manual) Moderate Anisocytosis (manual) Slight Microcytosis Moderate Schistocytes Few Urine Color Colorless (Yellow) Urine Clarity Clear (Clear) Urine pH 7.0 (5.0-9.0) Urine Specific [place] 1.011 (1.001-1.035) Urine Protein Negative (Negative) Urine Ketones Negative (Negative) Urine Blood Negative /uL (Negative) Urine Nitrite Negative (Negative) Urine Bilirubin Negative (Negative) Urine Urobilinogen Normal mg/dL (Negative) Urine Leukocyte Esterase Negative /uL (Negative) Urine RBC None seen /hpf (0 - 3) Urine WBC <1 /hpf (0 - 3) Urine Squamous Epithelial Cells None seen /hpf (<5) Urine Bacteria None seen /hpf (None Seen) Urine Glucose Normal mg/dL (Normal) Other Laboratory Tests 07/12/24 06:22 Brief Hx & Hospital Course: hpi : 43-year-old male with past medical history of left kidney tumor and hemorrhoids who presents to the ED for blood in stool, right leg pain, back pain, and fatigue x2 months. Patient reports that he did not come in to the ED sooner because he had no insurance also has not seen a primary care physician. Patient states that he has been passing large clots daily with his bowel movements course: Hemoglobin 5.7 on admit, typed/screened and given 2 units PRBC on follow-up 8.0 stable. Stool occult blood +. GI consulted, recommend outpatient management of hemorrhoids and conservative management. IV PPI b.i.d. was started and stopped on discharge. CT abdomen pelvis done without con, no acute findings and cant find source of bleeding. CT abdomen on admit showing hepatomegaly. Patient has back pain with bowel movements, on exam he has left paraspinal tenderness,. X-ray lumbar spine shows old mild compression fracture L5, grade 1 retrolisthesis on L5-S1 with severe degenerative disc disease. Discharge diagnosis: Acute on chronic blood loss anemia, due to hemmorrhoids; severe anemia, requiring transfusion; hepatomegaly; acute on chronic lower GI bleed; history of hemorrhoids; hyperbilirubinemia, resolved; chronic constipation; old compression fracture, likely; grade 1 retrolisthesis L5/S1; severe degenerative disc disease L5-S1; Discharge plan: - start lactulose 10 g solution daily X 14 days - continue Metamucil twice daily for X 30 days - trial Flexeril 10 nightly for X 5 nights - Continue Sitz bath every other day. - consume high-fiber diet. - follow up with PCP to review discharge and repeat CBC/Hb levels. PCP to follow up on hepatitis panel, PSA levels. Social consult for PCP assignment. - follow up with the surgery outpatient for hemorrhoid management. - continue other home meds not mentioned above. If large amounts of bright red blood occurs , return to nearest ED. Condition at Discharge: Fair Final Diagnosis/Problems List Acute on chronic blood loss anemia, due to hemmorrhoids; severe anemia, requiring transfusion; hepatomegaly; acute on chronic lower GI bleed; history of hemorrhoids; hyperbilirubinemia, resolved; chronic constipation; old compression fracture, likely; grade 1 retrolisthesis L5/S1; severe degenerative disc disease L5-S1; Discharge Disposition: Home Discharge Statement: "Patient was advised to return to the ER or call 911 if any headaches, dizziness, shortness of breath, chest pain, abdominal pain, bleeding, fevers, or worsening of medical condition. Patient was counseled about treatment plan, medications, possible side effects, patientverbalized understanding. All questions were answered to the best of my ability. This discharge took greater then 30 minutes in planning, reviewing documentation, counseling the patient, and discussing with other team members." ASSESSMENT ASSESSMENT Assessment Acute on chronic blood loss anemia, due to hemmorrhoids; severe anemia, requiring transfusion; hepatomegaly; acute on chronic lower GI bleed; history of hemorrhoids; hyperbilirubinemia, resolved; chronic constipation; old compression fracture, likely; grade 1 retrolisthesis L5/S1; severe degenerative disc disease L5-S1; Date of Service: Jul 12, 2024 Billing Provider: DYLON CELIS MD Common Visit Codes: 14614-TRL/OBS DISCH DAY >30min DYLON CELIS MD Jul 12, 2024 14:32
[2024-07-12] MEDS: HYDROcodone-ACET 5/325MG TAB PO PRN (14:38)
--- NOTE | 2024-07-12 14:59 | DVH ---
EXAM: XY LUMBAR SPINE 3 VIEW INDICATION: back pain COMPARISON: None TECHNIQUE: 3 views of the lumbar spine were obtained. Findings: There is no evidence of spondylolysis. Age indeterminate mild compression fracture of L5. Grade 1 retrolisthesis of L5 on S1 with severe deg enerative disc disease. The vertebral body heights and disc spaces are well-maintained. No blastic or lytic lesions are appreciated. No radiopaque foreign bodies. No superficial soft tissue abnormalities. Impression: 1. Age indeterminate mild compression fracture of L5. 2. Grade 1 retrolisthesis of L5 on S1 with severe degenerative disc disease.
[2024-07-12] MEDS ORDERED: CYCL-611 PO (16:36)
[2024-07-13 06:06] LABS: PSA Free 0.22 ng/mL; Prostate Specific Antigen 0.7 ng/mL (0.0-4.0)
[2024-07-15 09:31] LABS: Hepatitis B Surface Antigen Negative (Negative)
[2024-07-15 10:08] LABS: Hepatitis A Ab IgM Negative; Hepatitis B Core IgM Negative (Negative); Hepatitis C Antibody Negative (Negative)
== END 2024-07-12 19:14 | disposition home or self-care (01) | DRG 254 ==
LOC: ER 08:47 → OVERFLOW 14:47 → EAST 07-11 17:38
PROVIDERS: ATTEND Student in an Organized Health Care Education/Training Program
PROC: 30233N1 Transfusion of Nonautologous Red Blood Cells into Peripheral Vein, Percutaneous Approach (ICD-10-PCS; principal; 2024-07-10)
DX: K64.8 Other hemorrhoids (principal); E44.1 Mild protein-calorie malnutrition; D62 Acute posthemorrhagic anemia; K92.2 Gastrointestinal hemorrhage, unspecified; R16.0 Hepatomegaly, not elsewhere classified; E80.6 Other disorders of bilirubin metabolism; K59.09 Other constipation; D50.9 Iron deficiency anemia, unspecified; D75.838 Other thrombocytosis; G89.29 Other chronic pain; N28.89 Other specified disorders of kidney and ureter; M51.379 Other intervertebral disc degeneration, lumbosacral region without mention of lumbar back pain or lower extremity pain; Z88.0 Allergy status to penicillin; Z80.42 Family history of malignant neoplasm of prostate; Z68.23 Body mass index [BMI] 23.0-23.9, adult; Z59.00 Homelessness unspecified
CPT/HCPCS: 36415; 72100; 74176; 76700; 80048; 80053; 80074; 81001; 82270; 84154; 85007; 85025; 85027; 85045; 86850; 86900; 86901; 86920; 96361; 96374; 99291; 99292; G0378; J2470

== ENCOUNTER 2024-12-16 14:43 | Emergency (ER) | payer SELFPAY ==
[~2024-12-16] VITALS: Ht 182.9 cm; Wt 82.9 kg
[~2024-12-16 14:43] MED LIST: CYCL-611 PO; LACT10SO3 PO; PSYL0.524 PO
[2024-12-16 14:55] VITALS: BP 122/63; PULSE 90; RESP 18; TEMP 99; O2SAT 100
--- NOTE | 2024-12-16 15:01 | ED.PDOC ---
History of Present Illness HPI Comments 44 year old male presents to the ED with a chief compliant of generalized weakness. Patient has been experiencing generalized weakness, fatigue, shortness of breath. Patient states he experienced similar symptoms June 2024, was seen at [facility], hemoglobin was 5.7, had a blood transfusion. Denies any PMHx as well as chest pain, dizziness, nausea, vomiting, diarrhea, fevers, chills. No other symptoms or modifying factors present at this time. Chief Complaint: Shortness of Breath Time Seen by MD: 14:55 Primary Care Provider: DENIES Reviewed Notes: Medications, Allergies Allergies: Coded Allergies: Penicillins (Verified Allergy, Unknown, 07/10/24) Shellfish Allergy (Verified Allergy, Unknown, 12/16/24) Home Meds Active Scripts Cyclobenzaprine HCl (Cyclobenzaprine Hydrochlo) 10 Mg Tab, 10 MG PO HS for 5 Days, #10 TAB 0 Refills Prov:DYLON CELIS MD 07/12/24 Psyllium (Metamucil) 0.36 Gm Cap, 0.36 GM PO BID for 30 Days, #60 CAP 0 Refills Prov:DYLON CELIS MD 07/12/24 Lactulose (Lactulose) 10 Gm/15 Ml Arlene, 10 GM PO DAILY for 14 Days, #236 ML 0 Refills Prov:DYLON CELIS MD 07/12/24 Information Source: Patient Mode of Arrival: Ambulatory Severity: Moderate Timing: Hours Duration: Since onset Prehospital treatment: None Past Medical History PAST MEDICAL HISTORY: Denies Surgical History: Denies all surgeries Family History Family History: Reviewed,noncontributory to illness Social History Smoker: Non-Smoker Alcohol: Denies ETOH Use Drugs: Marijuana Lives In: Home Constitutional: reports: fatigue, weakness; denies: chills, diaphoresis, fever, malaise, sweats, others EENTM: denies: blurred vision, double vision, ear bleeding, ear discharge, ear drainage, ear pain, ear ringing, eye pain, eye redness, hearing loss, mouth pain, mouth swelling, nasal discharge, nose bleeding, nose congestion, nose pain, photophobia, tearing, throat pain, throat swelling, voice changes, others Respiratory: reports: shortness of breath; denies: cough, hemoptysis, orthopnea, SOB at rest, SOB with excertion, stridor, wheezing, others Cardiovascular: denies: chest pain, dizzy spells, diaphoresis, Dyspnea on exertion, edema, irregular heart beat, left arm pain, lightheadedness, palpitations, PND, syncope, others Gastrointestinal: denies: abdomen distended, abdominal pain, blood streaked bowels, constipated, diarrhea, dysphagia, difficulty swallowing, hematemesis, melena, nausea, poor appetite, poor fluid intake, rectal bleeding, rectal pain, vomiting, others Genitourinary: denies: burning, dysuria, flank pain, frequency, hematuria, incontinence, penile discharge, penile sore, pain, testicle pain, testicle swelling, urgency, others Neurological: reports: weakness; denies: dizziness, fainting, headache, left sided numbness, left sided weakness, numbness, paresthesia, pre-existing deficit, right sided numbness, right sided weakness, seizure, speech problems, tingling, tremors, others Musculoskeletal: denies: back pain, gout, joint pain, joint swelling, muscle pain, muscle stiffness, neck pain, others Integumetry: denies: bruises, change in color, change in hair/nails, dryness, laceration, lesions, lumps, rash, wounds, others Allergic/Immunocompromised: denies: Difficulty Healing, Frequent Infections, Hives, Itching, others Hematologic/Lymphatic: denies: anemia, blood clots, easy bleeding, easy bruising, swollen glands, others Endocrine: denies: excessive hunger, excessive sweating, excessive thirst, excessive urination, flushing, intolerance to cold, intolerance to heat, unexplained weight gain, unexplained weight loss, others Psychiatric: denies: anxiety, bipolar disorder, depression, hopeless, panic disorder, schizophrenia, sleepless, suicidal, others All Other Systems: Reviewed and Negative Physical Exam General Appearance: Moderate Distress, Normal HEENT: Normal ENT Inspection, Pharynx Normal, TMs Normal Neck: Full Range of Motion, Non-Tender, Normal, Normal Inspection Respiratory: Chest Non-Tender, Lungs Clear, No Accessory Muscle Use, No Respiratory Distress, Normal Breath Sounds Cardiovascular: No Edema, No JVD, No Murmur, No Gallop, Normal Peripheral Pulses, Regular Rate/Rhythm Breast Exam: Deferred Gastrointestinal: No Organomegaly, Non Tender, No Pulsatile Mass, Normal Bowel Sounds, Soft Genitalia: Deferred Pelvic: Deferred Rectal: Deferred Extremities: No calf tenderness, Normal capillary refill, Normal inspection, Normal range of motion, Non-tender, No pedal edema Musculoskeletal : Apperance: Normal Neurologic: Alert, pediatric assistant II-XII nml as Tested, No Motor Deficits, Normal Affect, Normal Mood, No Sensory Deficits Cerebellar Function: Normal Reflexes: Normal Skin: Dry, Normal Color, Warm Peripheral Pulses: 3+ Radial (R), 3+ Radial (L) Lymphatic: No Adenopathy Was a procedure done? Was a procedure done?: No Differential Dx Considerations may include: Anemia Electrolyte imbalance X-Ray, Labs, Meds, VS Vital Signs Date Time Temp Pulse Resp B/P (MAP) Pulse Ox O2 Delivery O2 Flow Rate FiO2 12/16/24 14:55 99.0 90 18 122/63 (82) 100 99.0 Lab Test 12/16/24 15:06 Range/Units White Blood Count 4.8 4.4-10.8 10^3/uL Red Blood Count 2.82 L 4.5-5.90 10^6/uL Hemoglobin 4.5 *L 13.5-17.5 g/dL Hematocrit 16.3 L 41.0-53.0 % Mean Corpuscular Volume 57.8 L 80.0-100.0 fL Mean Corpuscular Hemoglobin 16.0 L 28.0-32.0 pg Mean Corpuscular Hemoglobin Concent 27.7 L 32.0-36.0 g/dL Red Cell Distribution Width 26.8 H 11.8-14.3 % Platelet Count 531 H 140-450 10^3/uL Mean Platelet Volume 8.1 6.9-10.8 fL Neutrophils (%) (Auto) 37.0-80.0 % Lymphocytes (%) (Auto) 10.0-50.0 % Monocytes (%) (Auto) 0.0-12.0 % Basophils (%) (Auto) 0.0-2.0 % Neutrophils # (Auto) 1.6-8.6 10 ^3/uL Lymphocytes # (Auto) 0.4-5.4 10 ^3/uL Monocytes # (Auto) 0-1.3 10 ^3/uL Differential Total Cells Counted Pending Neutrophils % (Manual) Pending Band Neutrophils % (Manual) Pending Lymphocytes % (Manual) Pending Monocytes % (Manual) Pending Eosinophils % (Manual) Pending Basophils % (Manual) Pending Metamyelocytes % (manual) Pending Myelocytes % (Manual) Pending Promyelocytes % (Manual) Pending Blast Cells % (Manual) Pending Reactive Lymphocytes Pending Platelet Estimate Pending Sodium Level 140 136-145 mmol/L Potassium Level 4.9 3.5-5.1 mmol/L Chloride Level 107 98-107 mmol/L Carbon Dioxide Level 24 20-31 mmol/L Anion Gap 9 5-15 Blood Urea Nitrogen 10 9-23 mg/dL Creatinine 1.17 0.700-1.30 mg/dL Glomerular Filtration Rate Calc 78 >90 mL/min BUN/Creatinine Ratio 8.5 L 10.0-20.0 Serum Glucose 109 H 74-106 mg/dL Calcium Level 10.5 H 8.7-10.4 mg/dL Patient alert. Complaining of generalized weakness. Vitals stable. Answering questions. History of anemia. Continue monitoring. Hemoglobin is low. Was given blood transfusion. Explained to the patient. Time of 1ST Reevaluation: 15:25 Reevaluation 1ST: Unchanged Patient Education/Counseling: Diagnosis, Treatment, Prognosis Family Education/Counseling: No Family Present SEPSIS Sepsis Screen Physician Orders Complete Blood Count (12/16/24 15:00) Manual Differential (12/16/24 15:06) Type And Screen (12/16/24 15:48) Packedcell-Noactive Bleeding (12/16/24 15:48) Administer Blood Products UD (12/16/24 15:48) Vital Signs Date Time Temp Pulse Resp B/P (MAP) Pulse Ox O2 Delivery O2 Flow Rate FiO2 12/16/24 14:55 99.0 90 18 122/63 (82) 100 99.0 Laboratory Tests Test 12/16/24 15:06 White Blood Count 4.8 10^3/uL (4.4-10.8) Departure 1 Departure Time of Disposition: 15:09 Impression: Primary Impression: Symptomatic anemia Disposition: ADMITTED INPATIENT Admit to: Med Surg Condition: Guarded Critical Care Note Critical Care Time?: No Stability Stability form required: No Heart Score Heart Score: Heart Score Response (Comments) Value History N/A 0 EKG N/A 0 Age N/A 0 Risk Factors N/A 0 Troponin N/A 0 Total 0 I personally scribed for ANNETTE BRIGHT MD ([email or web address]) on 12/16/24 at 15:01. Electronically submitted by Marleen Marquez ([email or web address]). ANNETTE BRIGHT MD Dec 16, 2024 15:01
[2024-12-16 15:24] LABS: Hematocrit 16.3 % (41.0-53.0); Mean Corpuscular Hgb Conc. 27.7 g/dL (32.0-36.0); Mean Corpuscular Volume 57.8 fL (80.0-100.0); Platelet Count (auto) 531 10^3/uL (140-450); Red Blood Cells 2.82 10^6/uL (4.5-5.90); White Blood Cell 4.8 10^3/uL (4.4-10.8)
[2024-12-16 15:29] LABS: Red Cell Distribution Width 26.8 % (11.8-14.3)
[2024-12-16 15:31] LABS: Chloride 107 mmol/L (98-107); Potassium 4.9 mmol/L (3.5-5.1); Sodium 140 mmol/L (136-145)
[2024-12-16 15:32] LABS: Anion Gap 9 (5-15); Carbon Dioxide 24 mmol/L (20-31)
[2024-12-16 15:34] LABS: Hemoglobin 4.5 g/dL (13.5-17.5)
[2024-12-16 15:35] LABS: Basophils % (manual) 0 (0.0-2.0); Blast Cells 0; Eosinophils % (manual) 0 (0-7); Metamyelocytes % 0; Myelocytes % 0; Promyelocytes % 0; Reactive Lymphocytes 0
[2024-12-16 15:37] LABS: BUN/Creatinine Ratio 8.5 (10.0-20.0); Blood Urea Nitrogen 10 mg/dL (9-23)
[2024-12-16 15:42] LABS: Calcium 10.5 mg/dL (8.7-10.4); Glucose 109 mg/dL (74-106)
[2024-12-16 16:10] LABS: Anisocytosis Moderate; Band Neutrophils % (manual) 1; Hypochromia Marked; Lymphocytes % (manual) 30 (10.0-50.0); Monocytes % (manual) 7 (0-12); Platelet Estimate Increased
== END 2024-12-16 19:23 | disposition left against medical advice (07) ==
LOC: ER 14:43
DX: D64.9 Anemia, unspecified (principal); F12.90 Cannabis use, unspecified, uncomplicated; Z88.0 Allergy status to penicillin
CPT/HCPCS: 36415; 80048; 85007; 85027

== ENCOUNTER 2024-12-30 14:43 | Inpatient (IN) | payer MEDICAID, OTHER ==
[~2024-12-30] VITALS: Ht 180.3 cm; Wt 86.0 kg
--- NOTE | 2024-12-30 15:00 | ED.PDOC ---
GI ASSESSMENT HPI Comments 44 y.o male presents to the ED for a chief complaint of rectal bleeding. Patient reports ongoing bleeding since 2018 in which he was diagnosed with hemorrhoids and has had intermittent episodes with one being x 4 days ago. Patient reports being seen for same complaint back in June 2024, was seen at the ED in which he was found to have a low HGB around 5.0 and had a blood transfusion done. Patient today also complains of SOB today and states his son found her outside his yard unconscious. Patient denies any chest pain, fever, chill, nausea, vomiting, diarrhea. Chief Complaint: GI Bleed Time Seen by MD: 14:53 Primary Care Provider: NONE Reviewed Notes: Nurses Notes, Medications, Allergies Allergies: Coded Allergies: Penicillins (Verified Allergy, Unknown, 07/10/24) Shellfish Allergy (Verified Allergy, Unknown, 12/16/24) Home Meds Active Scripts Cyclobenzaprine HCl (Cyclobenzaprine Hydrochlo) 10 Mg Tab, 10 MG PO HS for 5 Days, #10 TAB 0 Refills Prov:DYLON CELIS MD 07/12/24 Psyllium (Metamucil) 0.36 Gm Cap, 0.36 GM PO BID for 30 Days, #60 CAP 0 Refills Prov:DYLON CELIS MD 07/12/24 Lactulose (Lactulose) 10 Gm/15 Ml Arlene, 10 GM PO DAILY for 14 Days, #236 ML 0 Refills Prov:DYLON CELIS MD 07/12/24 Information Source: Patient Mode of Arrival: Ambulatory Timing: Came on: Gradually Duration: Since onset Quality: None Vomitus: None Stool: Blood Streaked Severity: Moderate Recent: None Recent Hx of: None Pain Location: None Modifying Factors: Nothing Associated sign and symptoms: Blood in Stool Past Medical History PAST MEDICAL HISTORY: High Lipids Past Medical History (Other): hemmorhoids Surgical History: Denies all surgeries Family History Family History: Reviewed,noncontributory to illness, Family hx of DM, Family hx of Cancer, Family hx of HTN Social History Smoker: Non-Smoker Alcohol: Denies ETOH Use Drugs: Marijuana (quit April 2024 ) Lives In: Home Constitutional: denies: chills, diaphoresis, fatigue, fever, malaise, sweats, weakness, others EENTM: denies: blurred vision, double vision, ear bleeding, ear discharge, ear drainage, ear pain, ear ringing, eye pain, eye redness, hearing loss, mouth pain, mouth swelling, nasal discharge, nose bleeding, nose congestion, nose pain, photophobia, tearing, throat pain, throat swelling, voice changes, others Respiratory: denies: cough, hemoptysis, orthopnea, SOB at rest, shortness of breath, SOB with excertion, stridor, wheezing, others Cardiovascular: denies: chest pain, dizzy spells, diaphoresis, Dyspnea on exertion, edema, irregular heart beat, left arm pain, lightheadedness, palpitations, PND, syncope, others Gastrointestinal: reports: rectal bleeding; denies: abdomen distended, abdominal pain, blood streaked bowels, constipated, diarrhea, dysphagia, difficulty swallowing, hematemesis, melena, nausea, poor appetite, poor fluid intake, rectal pain, vomiting, others Genitourinary: denies: burning, dysuria, flank pain, frequency, hematuria, incontinence, penile discharge, penile sore, pain, testicle pain, testicle swelling, urgency, others Neurological: denies: dizziness, fainting, headache, left sided numbness, left sided weakness, numbness, paresthesia, pre-existing deficit, right sided numbness, right sided weakness, seizure, speech problems, tingling, tremors, weakness, others Musculoskeletal: denies: back pain, gout, joint pain, joint swelling, muscle pain, muscle stiffness, neck pain, others Integumetry: denies: bruises, change in color, change in hair/nails, dryness, laceration, lesions, lumps, rash, wounds, others Allergic/Immunocompromised: denies: Difficulty Healing, Frequent Infections, Hives, Itching, others Hematologic/Lymphatic: denies: anemia, blood clots, easy bleeding, easy bruising, swollen glands, others Endocrine: denies: excessive hunger, excessive sweating, excessive thirst, excessive urination, flushing, intolerance to cold, intolerance to heat, unexplained weight gain, unexplained weight loss, others Psychiatric: denies: anxiety, bipolar disorder, depression, hopeless, panic disorder, schizophrenia, sleepless, suicidal, others All Other Systems: Reviewed and Negative Physical Exam General Appearance: Moderate Distress HEENT: Pale Conjuntivae (L), Pale Conjuntivae (R), Pharynx Normal, TMs Normal Neck: Full Range of Motion, Non-Tender, Normal, Normal Inspection Respiratory: Chest Non-Tender, Lungs Clear, No Accessory Muscle Use, No Respiratory Distress, Normal Breath Sounds Cardiovascular: No Edema, No JVD, No Murmur, No Gallop, Normal Peripheral Pulses, Regular Rate/Rhythm Breast Exam: Deferred Gastrointestinal: No Organomegaly, Non Tender, No Pulsatile Mass, Normal Bowel Sounds, Soft Genitalia: Deferred Pelvic: Deferred Rectal: Deferred Extremities: No calf tenderness, Normal capillary refill, No pedal edema Musculoskeletal : Apperance: Normal Neurologic: Alert, crime investigator special agent II-XII nml as Tested, Motor Weakness, Normal Affect, Normal Mood, No Sensory Deficits Cerebellar Function: Normal Reflexes: Normal Skin: Dry, Normal Color, Warm Lymphatic: No Adenopathy Was a procedure done? Was a procedure done?: No GI differential Dx Differential Diagnosis: GI hemorrhage, Dehydration, Mass, Anemia, Esophageal Varicies, Stress Ulcer X-Ray, Labs, Meds, VS Vital Signs Date Time Temp Pulse Resp B/P (MAP) Pulse Ox O2 Delivery O2 Flow Rate FiO2 12/30/24 14:57 98.4 85 17 134/73 (93) 100 98.4 Lab Test 12/30/24 15:10 Range/Units White Blood Count 4.8 4.4-10.8 10^3/uL Red Blood Count 2.75 L 4.5-5.90 10^6/uL Hemoglobin 4.6 *L 13.5-17.5 g/dL Hematocrit 16.7 L 41.0-53.0 % Mean Corpuscular Volume 60.5 L 80.0-100.0 fL Mean Corpuscular Hemoglobin 16.6 L 28.0-32.0 pg Mean Corpuscular Hemoglobin Concent 27.4 L 32.0-36.0 g/dL Red Cell Distribution Width 27.2 H 11.8-14.3 % Platelet Count 537 H 140-450 10^3/uL Mean Platelet Volume 8.5 6.9-10.8 fL Neutrophils (%) (Auto) 37.0-80.0 % Lymphocytes (%) (Auto) 10.0-50.0 % Monocytes (%) (Auto) 0.0-12.0 % Basophils (%) (Auto) 0.0-2.0 % Neutrophils # (Auto) 1.6-8.6 10 ^3/uL Lymphocytes # (Auto) 0.4-5.4 10 ^3/uL Monocytes # (Auto) 0-1.3 10 ^3/uL Differential Total Cells Counted Pending Neutrophils % (Manual) Pending Band Neutrophils % (Manual) Pending Lymphocytes % (Manual) Pending Monocytes % (Manual) Pending Eosinophils % (Manual) Pending Basophils % (Manual) Pending Metamyelocytes % (manual) Pending Myelocytes % (Manual) Pending Promyelocytes % (Manual) Pending Blast Cells % (Manual) Pending Reactive Lymphocytes Pending Platelet Estimate Pending Prothrombin Time 11.3 9.3-11.8 sec Prothrombin Time INR 1.07 0.9-1.15 Activated Partial Thromboplast Time 23.3 L 24.5-34.5 SEC IV Hep-Lock was established The patient was typed and screened The CBC shows a hemoglobin of 4.6 and hematocrit of 16.7 The platelets are 537 The INR is 1.07 We are transfusing the patient with 2 units of packed red blood cells The patient is being admitted to the hospitalist at this time with a lower GI bleed as well as severe anemia Images Reviewed?: Images reviewed and evaluated by me Time of 1ST Reevaluation: 14:57 Reevaluation 1ST: Unchanged Patient Education/Counseling: Diagnosis, Treatment, Prognosis Family Education/Counseling: No Family Present SEPSIS Sepsis Screen Physician Orders Complete Blood Count (12/30/24 14:58) Type And Screen (12/30/24 14:58) Manual Differential (12/30/24 15:10) Heplock Iv (12/30/24 15:37) Logistics Tech (12/30/24 15:37) Blood Pressure (12/30/24 15:37) Pulse Oximetry (12/30/24 15:37) Obtain Consent For: (12/30/24 15:37) Packedcell-Noactive Bleeding (12/30/24 15:37) Administer Blood Products UD (12/30/24 15:37) Vital Signs Date Time Temp Pulse Resp B/P (MAP) Pulse Ox O2 Delivery O2 Flow Rate FiO2 12/30/24 14:57 98.4 85 17 134/73 (93) 100 98.4 Laboratory Tests Test 12/30/24 15:10 White Blood Count 4.8 10^3/uL (4.4-10.8) Departure 1 Departure Time of Disposition: 15:50 Impression: Primary Impression: Severe anemia Additional Impression: GI bleed Qualified Codes: K92.2 - Gastrointestinal hemorrhage, unspecified Disposition: ADMITTED INPATIENT Admit to: Tele Condition: Fair Critical Care Note Critical Care Time?: Yes (45 min-critical care time only) Stability Stability form required: Yes Unstable for transfer: Telemetry monitoring (Telemetry monitoring required), ED Physician Assesment (Clinical assesment) I personally scribed for CORINNE MASCORRO MD ([email or web address]) on 12/30/24 at 15:00. Electronically submitted by Malinda Davidson ([facility]). CORINNE MASCORRO MD Dec 30, 2024 15:00
[2024-12-30 15:27] LABS: Mean Corpuscular Hemoglobin 16.6 pg (28.0-32.0)
[2024-12-30 15:28] LABS: Hematocrit 16.7 % (41.0-53.0); Mean Corpuscular Volume 60.5 fL (80.0-100.0)
[2024-12-30 15:37] LABS: Hemoglobin 4.6 g/dL (13.5-17.5)
[2024-12-30 15:41] LABS: INR 1.07 (0.9-1.15); Partial Thromboplastin Time 23.3 SEC (24.5-34.5); Prothrombin Time 11.3 sec (9.3-11.8)
[2024-12-30] MEDS: PANTOPRAZOLE 40 MG/10 ML VIAL INJ IV ONE (16:00)
[2024-12-30 16:08] LABS: Anisocytosis Moderate; Total Cells Counted 100.0 (100)
--- NOTE | 2024-12-30 16:44 | DVHHP2 ---
History of Present Illness Reason for Visit: Symptomatic anemia History of Present Illness The patient is a 44-year-old male with past medical history of hyperlipidemia and hemorrhoid who presented to [facility] ED with complaint of rectal bleeding..Patient reports symptoms progressively get worse with shortness of breaths, found by her daughter outside his yard unconscious, getting worse that prompted this visit. Patient reports ongoing bleeding since 2018 in which he was diagnosed with hemorrhoids and has had intermittent episodes with one being x 4 days ago. Patient reports being seen for same complaint back in June 2024, was seen at the ED and found to have low HGB of 5.0 and had blood transfusion. Patient was seen and evaluated in the ED, laboratory data shows WBC 4.8, hemoglobin 4.6, hematocrit 16.7, platelets 537, blood pressure 134/73, heart rate 85, temperature 98.4 F, O2 saturation 99% on room air. Patient will receive 2 units of PRBC, please see medication orders section in the computer. On my assessment, patient denied chest pain, no headache, no dizziness, no shortness of breath, no nausea, no vomiting, no fever, no chills. Patient was admitted for further evaluation and medical management.. Past Medical History High Lipids, Hemorrhoid Past Surgical History Denies all surgeries Family History Reviewed, noncontributory to the management of this case. Past Social History The patient lives at home, denies smoking, alcohol or illicit drugs abuse. Review of Systems Constitutional: Yes: Weakness; No: Fever, Chills, Sweats, Malaise, Other Eyes: No: Pain, Vision change, Conjunctivae inflammation, Eyelid inflammation, Other, Redness ENT: No: Ear pain, Ear discharge, Nose pain, Nose discharge, Nose congestion, Mouth pain, Mouth swelling, Throat pain, Throat swelling, Other Respiratory: No: Cough, Dry, Shortness of breath, SOB with excertion, Wheezing, Hemoptysis, Pleuritic Pain, Sputum, Wheezing, Other Cardiovascular: No: Chest Pain, Palpitations, Orthopnea, Paroxysmal Noc. Dyspnea, Edema, Lt Headedness, Other Gastrointestinal: No: Nausea, Vomiting, Abdominal Pain, Diarrhea, Constipation, Melena, Hematochezia, Other Genitourinary: No Dysuria, No Frequency, No Incontinence, No Hematuria, No Retention; Other (Rectal bleeding) Musculoskeletal: No: other, neck pain, shoulder pain, arm pain, back pain, hand pain, leg pain, foot pain Skin: No: Rash, Lesions, Jaundice, Bruising, Other Neurological: No: Weakness, Numbness, Incoordination, Change in speech, Confusion, Seizures, Other Allergies: Coded Allergies: Penicillins (Verified Allergy, Unknown, 07/10/24) Shellfish Allergy (Verified Allergy, Unknown, 12/16/24) Exam Vital Signs Vital Signs Date Time Temp Pulse Resp B/P (MAP) Pulse Ox O2 Delivery O2 Flow Rate FiO2 12/30/24 14:57 98.4 85 17 134/73 (93) 100 98.4 General Appearance: Alert, Oriented X3, Cooperative, No acute distress HEENT: Atraumatic, PERRLA, EOMI, Mucous membr. moist/pink Respiratory: Normal air movement Cardiovascular: Regular rate, Normal S1, Normal S2, No murmurs Abdominal: Normal bowel sounds, Soft, No tenderness, No hepatospenomegaly, No masses Extremities: No clubbing, No cyanosis, No edema, Normal pulses, No tenderness/swelling Skin: No rashes, No breakdown, No significant lesion Neuro: Normal speech, Normal tone, Sensation intact, Cranial nerves 3-12 NL, Reflexes 2+, Other (Generalized weakness) Psych/Mental Status: Mental status NL, Mood NL Labs/Xrays Labs Test 12/30/24 15:10 Range/Units White Blood Count 4.8 4.4-10.8 10^3/uL Red Blood Count 2.75 L 4.5-5.90 10^6/uL Hemoglobin 4.6 *L 13.5-17.5 g/dL Hematocrit 16.7 L 41.0-53.0 % Mean Corpuscular Volume 60.5 L 80.0-100.0 fL Mean Corpuscular Hemoglobin 16.6 L 28.0-32.0 pg Mean Corpuscular Hemoglobin Concent 27.4 L 32.0-36.0 g/dL Red Cell Distribution Width 27.2 H 11.8-14.3 % Platelet Count 537 H 140-450 10^3/uL Mean Platelet Volume 8.5 6.9-10.8 fL Neutrophils (%) (Auto) 37.0-80.0 % Lymphocytes (%) (Auto) 10.0-50.0 % Monocytes (%) (Auto) 0.0-12.0 % Basophils (%) (Auto) 0.0-2.0 % Neutrophils # (Auto) 1.6-8.6 10 ^3/uL Lymphocytes # (Auto) 0.4-5.4 10 ^3/uL Monocytes # (Auto) 0-1.3 10 ^3/uL Differential Total Cells Counted 100.0 100 Neutrophils % (Manual) 72 37.0-80.0 Band Neutrophils % (Manual) 0 Lymphocytes % (Manual) 25 10.0-50.0 Monocytes % (Manual) 3 0-12 Eosinophils % (Manual) 0 0-7 Basophils % (Manual) 0 0.0-2.0 Metamyelocytes % (manual) 0 Myelocytes % (Manual) 0 Promyelocytes % (Manual) 0 Blast Cells % (Manual) 0 Reactive Lymphocytes 0 Platelet Estimate Increased Hypochromasia (manual) Marked Anisocytosis (manual) Moderate Microcytosis Marked Prothrombin Time 11.3 9.3-11.8 sec Prothrombin Time INR 1.07 0.9-1.15 Activated Partial Thromboplast Time 23.3 L 24.5-34.5 SEC Assessment/Plan Assessment/Plan Symptomatic anemia Rectal bleeding Gastrointestinal hemorrhage, unspecified Generalized weakness Plan 1. Admit to telemetry unit 2. Breathing treatment 3. Pain control management 4. Management of fluids and electrolytes 5. Consultation for hospitalist 6. Diagnostic tests chest x-ray 7. DVT prophylaxis on SCDs 8. Repeat labs CBC, CMP in a.m. 9. Continue with current medical management 10. Treatment plan discussed with patient and RN. Patient verbalized understanding. Plan discussed with: Patient, Other (RN) Problem List: (1) Symptomatic anemia (2) Rectal bleeding (3) Gastrointestinal hemorrhage, unspecified (4) Generalized weakness Date of Service: Dec 30, 2024 Billing Provider: SHARON NIELSEN DNP Common Visit Codes: [id number] INP/OBS CARE (HIGH) SHARON NIELSEN DNP Dec 30, 2024 16:44
[2024-12-30] MEDS ORDERED: MORPHINE SULFATE INJ 2 MG/ml SYRG IV PRN (16:45)
[2024-12-30] MEDS ORDERED: NITROGLYCERIN 0.4 MG SL TAB SL PRN (16:45)
[2024-12-30] MEDS ORDERED: DOCUSATE SOD 100 MG CAP PO PRN (16:45)
[2024-12-30 17:30] LABS: Alanine Aminotransferase 11 U/L (7-40); Alkaline Phosphatase 46 U/L (46-116); Anion Gap 10 (5-15); BUN/Creatinine Ratio 6.6 (10.0-20.0); Bilirubin, Total 0.6 mg/dL (0.2-1.0); Carbon Dioxide 23 mmol/L (20-31); Potassium 4.3 mmol/L (3.5-5.1); Sodium 140 mmol/L (136-145); Total Protein 7.5 g/dL (5.7-8.2)
[2024-12-30 18:09] LABS: Albumin 5.0 g/dL (3.2-4.8); Blood Urea Nitrogen 9 mg/dL (9-23); Calcium 10.4 mg/dL (8.7-10.4); Chloride 107 mmol/L (98-107); Glucose 145 mg/dL (74-106)
[2024-12-30 18:47] VITALS: BP 111/59; PULSE 81; RESP 12; TEMP 99.6
[2024-12-30 19:05] VITALS: BP 117/58; PULSE 90; RESP 11; TEMP 98.9
[2024-12-30 19:07] LABS: Urine Protein, UAD Negative (Negative)
[2024-12-30 19:35] VITALS: PULSE 87; RESP 13; O2SAT 99
[2024-12-30 22:10] VITALS: BP 110/59; PULSE 74; RESP 16; TEMP 98.5
[2024-12-30 23:05] VITALS: BP 117/59; PULSE 79; RESP 18; TEMP 98.6
[2024-12-30 23:28] VITALS: BP 106/58; PULSE 78; RESP 13; TEMP 98.7
[2024-12-31] VITALS (10 sets, daily range): BP systolic 107–135; BP diastolic 52–87; PULSE 56–68; RESP 13–18; TEMP 97.6–98.7; O2SAT 100
[2024-12-31] MEDS: HYDROcodone-ACET 5/325MG TAB PO PRN (03:53)
[2024-12-31 05:43] LABS: Mean Corpuscular Hemoglobin 20.0 pg (28.0-32.0)
[2024-12-31 05:50] LABS: Hematocrit 21.8 % (41.0-53.0); Mean Corpuscular Volume 66.6 fL (80.0-100.0)
[2024-12-31 06:12] LABS: Albumin 4.3 g/dL (3.2-4.8); Anion Gap 9 (5-15); BUN/Creatinine Ratio 8.0 (10.0-20.0); Bilirubin, Total 1.1 mg/dL (0.2-1.0); Blood Urea Nitrogen 10 mg/dL (9-23); Calcium 9.1 mg/dL (8.7-10.4); Carbon Dioxide 24 mmol/L (20-31); Glucose 86 mg/dL (74-106); Potassium 4.0 mmol/L (3.5-5.1); Sodium 140 mmol/L (136-145); Total Protein 6.7 g/dL (5.7-8.2)
[2024-12-31 06:13] LABS: Alanine Aminotransferase < 9 U/L (7-40); Alkaline Phosphatase 43 U/L (46-116); Chloride 107 mmol/L (98-107)
[2024-12-31 06:19] LABS: Hemoglobin 6.6 g/dL (13.5-17.5)
[2024-12-31 06:55] LABS: Total Cells Counted 100.0 (100)
[2024-12-31 06:56] LABS: Anisocytosis Moderate; Ovalocytes FEW; Tear Drop Cells FEW
[2024-12-31 06:57] LABS: Giant Platelets Few
[2024-12-31] MEDS: PANTOPRAZOLE 40 MG/10 ML VIAL INJ IV SCH (09:00)
--- NOTE | 2024-12-31 14:13 | DVHPNRES ---
Progress Note Date Seen: Dec 31, 2024 Resident Creating Document: RONNY RIDLEY RESIDENT Medical Necessity Reason Pt with a Central, PICC or Fol: No Subjective Review of Systems The patient is a 44-year-old male with past medical history of hyperlipidemia and hemorrhoid who presented to [facility] ED with complaint of rectal bleeding..Patient reports symptoms progressively get worse with shortness of breath and weakness, found by his son outside his yard unconscious with no significant head trauma. Patient reports ongoing bleeding since 2017 in which he was diagnosed with hemorrhoids and has had intermittent episodes with one being x 4 days ago. Patient reports being seen for same complaint back in June 2024, was seen at the ED and found to have low HGB of 5.0 and had blood transfusion. Patient was seen at bedside. Patient appeared pale and weak, but feeling better than yesterday. Patient was given 2 units of blood yesterday and is waiting for another unit today as hemoglobin was 6.6. He reports no abdominal pain to palpation, nausea, vomiting, headache, or dizziness. Patient reports that his bleeding is bright red in color and is combined with mucus. Patient states that he has always been constipated since a kid, and complains of abdominal cramps when straining. He had underwent a colonoscopy in June and an endoscopy last year which had no significant findings. Patient is using MiraLax since June but reports that it does not help. CT scan with contrast was ordered for left kidney mass. Objective vital signs Vital Sign Date Time Temp Pulse Resp B/P (MAP) Pulse Ox O2 Delivery O2 Flow Rate FiO2 12/31/24 13:20 98.7 56 18 135/69 98.7 12/31/24 09:00 100 12/30/24 19:35 Room Air* 0 21 Total Intake and Output 12/30/24 12/30/24 12/31/24 15:00 23:00 07:00 Intake Total 300 ml 1120 ml Output Total 1225 ml Balance 300 ml -105 ml medications Current Medications Medications Dose Ordered Sig/Aden Route Start Time Stop Time Status Last Admin Dose Admin Pantoprazole Sodium 40 mg DAILY IV 12/31/24 10:00 12/31/24 09:00 40 MG Acetaminophen/ Hydrocodone Bitart 1 tab Q4HP PRN PO 12/30/24 16:45 12/31/24 03:53 1 TAB Ondansetron HCl 4 mg Q4HP PRN IV 12/30/24 16:45 Docusate Sodium 100 mg BIDPRN PRN PO 12/30/24 16:45 Acetaminophen 650 mg Q6HP PRN PO 12/30/24 16:45 Examination General: Patient alert and oriented in person, place and time. Patient following commands. Appears pale, and weak. HEENT: Normocephalic, atraumatic, moist mucous membranes Respiratory/pulmonary: Clear lungs bilaterally, vesicular murmurs present in almost all lung brunner, no associated crackles or wheezes. Cardiovascular: Normal heart sounds S1 and S2 with no associated murmurs Abdomen: Abdomen nondistended, there is no pain to palpation in any of the abdominal quadrants, no palpable masses. Extremities: There is no peripheral edema present at the lower extremities. Peripheral Pulses: 3+ Radial (R). 3+ Radial (L). 3+ Dorsalis pedis (R). 3+ Dorsalis pedis(L) Skin: No rashes or pruritus, there is no sacral edema present at this time. 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 Moderate amount of fecal material within the colon. - urology consult, pending - Miralax continued, docusate given DVT PPX: Ambulatory GI PPX: Protonix Diet: As tolerated Goals of care discussed with the patient for more than 24 minutes: Full code status Case discussed with Dr. Levine, Plan discussed with: Patient CC Plasma Assessment Blood Product Administration S: 1040 Date of Service: Dec 31, 2024 Billing Provider: MIREILLE LEVINE MD Common Visit Codes: [id number] INP/OBS CARE(HIGH) RONNY RIDLEY RESIDENT Dec 31, 2024 14:13 MIREILLE LEVINE MD Dec 31, 2024 20:34
[2024-12-31] MEDS: diphenhdrAMINE HCL 50 MG/1 ML VL IV ONE (14:39)
--- NOTE | 2024-12-31 15:59 | DVH ---
Exam: CT CT AB PEL WITH IV CON ONLY History: Left renal mass Comparison Study: CT abdomen and pelvis without contrast 07/10/2024 TECHNIQUE: Multidetector CT of the abdomen and pelvis with IV contrast. Axial, coronal and sagittal m ultiplanar reformats were obtained from the axial data set by the technologist. Radiation Dose Information: CT Dose: CTDI volume is 6.88 mGy. Dose-length product is 366.83 mGy*cm FINDINGS: Bibasilar atelectasis. Partially visualized heart is unremarkable. Subtle 1.3 cm area of enhancement of the hepatic dome. Mild hepatomegaly. Mild splenomegaly. Gallbla dder, pancreas and adrenal glands are unremarkable. The right kidneys unremarkable. Changed in size from 07/10/2024 4.4 x 3.1 x 2.9 cm posterior lateral interpolar region to lower pole renal lesion which measures soft tissue. No hydronephrosis or renal c alculi bilaterally. Urinary bladder is decompressed limiting evaluation. Prostate measures 3.4 x 4.5 by 3.6 cm. Stomach is unremarkable. Small bowel loops unremarkable. Appendix is unremarkable. Large bowel is un remarkable. Moderate amount of fecal material within the colon. No evidence of intraperitoneal free air or free fluid. No evidence of aortic aneurysm or dissection. No Significant lymphadenopathy. The soft tissues are unremarkable. No destructive osseous lesions noted. IMPRESSION: 4.4 x 3.1 x 2.9 cm left renal soft tissue density lesion . Renal protocol CT /MRI is recommended for further evaluation. Subtle 1.3 cm area of enhancement over the hepatic dome. Attention to this area is recommended on harrell bsequent imaging. Moderate amount of fecal material within the colon.
[2024-12-31] MEDS: IOHEXOL 300 MG/ML 100ML BOTTLE IJ ONE (16:00)
[2024-12-31] MEDS: POLYETHYLENE GLYCOL 17 GM PWDR PO ONE (17:00)
[2025-01-01] VITALS (9 sets, daily range): BP systolic 113–148; BP diastolic 61–79; PULSE 53–74; RESP 12–20; TEMP 97.1–98.8; O2SAT 97–100
[2025-01-01 07:05] LABS: Chloride 106 mmol/L (98-107); Potassium 4.5 mmol/L (3.5-5.1); Sodium 141 mmol/L (136-145)
[2025-01-01 07:06] LABS: Anion Gap 8 (5-15); Carbon Dioxide 27 mmol/L (20-31)
[2025-01-01 07:07] LABS: Calcium 10.0 mg/dL (8.7-10.4)
[2025-01-01 07:11] LABS: Glucose 86 mg/dL (74-106)
[2025-01-01 07:12] LABS: BUN/Creatinine Ratio 10.6 (10.0-20.0); Blood Urea Nitrogen 12 mg/dL (9-23)
[2025-01-01 07:15] LABS: Hematocrit 26.7 % (41.0-53.0); Hemoglobin 8.2 g/dL (13.5-17.5); Mean Corpuscular Hemoglobin 20.8 pg (28.0-32.0); Mean Corpuscular Volume 68.1 fL (80.0-100.0)
[2025-01-01 07:44] LABS: Anisocytosis Moderate; Nucleated Red Blood Cells % 1.0 %; Total Cells Counted 100.0 (100)
[2025-01-01 07:48] LABS: Giant Platelets Few
[2025-01-01 07:49] LABS: Tear Drop Cells FEW
[2025-01-01] MEDS: POLYETHYLENE GLYCOL 17 GM PWDR PO SCH (08:41)
--- NOTE | 2025-01-01 10:29 | DVHINCON2 ---
Date of service: Jan 01, 2025 Referring Physician Hospitalist Reason for Consultation Left lower pole exophytic renal mass 4.4 cm History of Present Illness Patient known to have 3.5 cm solid left renal lesion in June 2024 now found to have 4.4 cm exophytic enhancing left renal mass. 44-year-old male with past medical history of hyperlipidemia and hemorrhoid who presented to [facility] ED with complaint of rectal bleeding..Patient reports symptoms progressively get worse with shortness of breaths, found by her daughter outside his yard unconscious, getting worse that prompted this visit. Patient reports ongoing bleeding since 2018 in which he was diagnosed with hemorrhoids and has had intermittent episodes with one being x 4 days ago. Patient reports being seen for same complaint back in June 2024, was seen at the ED and found to have low HGB of 5.0 and had blood transfusion. Patient was seen and evaluated in the ED, laboratory data shows WBC 4.8, hemoglobin 4.6, hematocrit 16.7, platelets 537, blood pressure 134/73, heart rate 85, temperature 98.4 F, O2 saturation 99% on room air. Patient will receive 2 units of PRBC, please see medication orders section in the computer. On my assessment, patient denied chest pain, no headache, no dizziness, no shortness of breath, no nausea, no vomiting, no fever, no chills. Patient was admitted for further evaluation and medical management.. Past Medical History High Lipids, Hemorrhoid Family History: Patient reports no known family medical history. Allergies: Coded Allergies: Penicillins (Verified Allergy, Unknown, 07/10/24) Shellfish Allergy (Verified Allergy, Unknown, 12/16/24) Home Meds Active Scripts Cyclobenzaprine HCl (Cyclobenzaprine Hydrochlo) 10 Mg Tab, 10 MG PO HS for 5 Days, #10 TAB 0 Refills Prov:DYLON CELIS MD 07/12/24 Psyllium (Metamucil) 0.36 Gm Cap, 0.36 GM PO BID for 30 Days, #60 CAP 0 Refills Prov:DYLON CELIS MD 07/12/24 Lactulose (Lactulose) 10 Gm/15 Ml Arlene, 10 GM PO DAILY for 14 Days, #236 ML 0 Refills Prov:DYLON CELIS MD 07/12/24 Current Medications Current Medications Medications (Trade) Dose Ordered Sig/Aden Route PRN Reason Start Time Stop Time Status Last Admin Polyethylene Glycol (Miralax 17GM Powder) 17 gm DAILY PO 01/01/25 10:00 01/01/25 08:41 Review of Systems Constitutional: Yes: Weakness; No: Fever, Chills, Sweats, Malaise, Other Eyes: No: Pain, Vision change, Conjunctivae inflammation, Eyelid inflammation, Other, Redness ENT: No: Ear pain, Ear discharge, Nose pain, Nose discharge, Nose congestion, Mouth pain, Mouth swelling, Throat pain, Throat swelling, Other Respiratory: No: Cough, Dry, Shortness of breath, SOB with excertion, Wheezing, Hemoptysis, Pleuritic Pain, Sputum, Wheezing, Other Cardiovascular: No: Chest Pain, Palpitations, Orthopnea, Paroxysmal Noc. Dyspnea, Edema, Lt Headedness, Other Gastrointestinal: No: Nausea, Vomiting, Abdominal Pain, Diarrhea, Constipation, Melena, Hematochezia, Other Genitourinary: No Dysuria, No Frequency, No Incontinence, No Hematuria, No Retention; Other (Rectal bleeding) Musculoskeletal: No: other, neck pain, shoulder pain, arm pain, back pain, hand pain, leg pain, foot pain Skin: No: Rash, Lesions, Jaundice, Bruising, Other Neurological: No: Weakness, Numbness, Incoordination, Change in speech, Confusion, Seizures, Other Allergies: Coded Allergies: Penicillins (Verified Allergy, Unknown, 07/10/24) Shellfish Allergy (Verified Allergy, Unknown, 12/16/24) Vital Signs Vital Signs Date Time Temp Pulse Resp B/P (MAP) Pulse Ox O2 Delivery O2 Flow Rate FiO2 01/01/25 09:00 97.1 71 20 113/61 (78) 97 97.1 01/01/25 07:30 Room Air* 0 21 Physical Exam Vital Signs Date Time Temp Pulse Resp B/P (MAP) Pulse Ox O2 Delivery O2 Flow Rate FiO2 12/30/24 14:57 98.4 85 17 134/73 (93) 100 98.4 General Appearance: Alert, Oriented X3, Cooperative, No acute distress HEENT: Atraumatic, PERRLA, EOMI, Mucous membr. moist/pink Respiratory: Normal air movement Cardiovascular: Regular rate, Normal S1, Normal S2, No murmurs Abdominal: Normal bowel sounds, Soft, No tenderness, No hepatospenomegaly, No masses Extremities: No clubbing, No cyanosis, No edema, Normal pulses, No tenderness/swelling Skin: No rashes, No breakdown, No significant lesion Neuro: Normal speech, Normal tone, Sensation intact, Cranial nerves 3-12 NL, Reflexes 2+, Other (Generalized weakness) Psych/Mental Status: Mental status NL, Mood NL Labs/Diagnostic Data Labs Test 01/01/25 05:56 12/31/24 13:29 12/31/24 13:24 12/31/24 04:31 Range/Units White Blood Count 4.8 4.4-10.8 10^3/uL Red Blood Count 3.92 L 4.5-5.90 10^6/uL Hemoglobin 8.2 #L 13.5-17.5 g/dL Hematocrit 26.7 #L 41.0-53.0 % Mean Corpuscular Volume 68.1 L 80.0-100.0 fL Mean Corpuscular Hemoglobin 20.8 L 28.0-32.0 pg Mean Corpuscular Hemoglobin Concent 30.6 L 32.0-36.0 g/dL Red Cell Distribution Width 30.2 H 11.8-14.3 % Platelet Count 523 H 140-450 10^3/uL Mean Platelet Volume 8.5 6.9-10.8 fL Neutrophils (%) (Auto) 37.0-80.0 % Lymphocytes (%) (Auto) 10.0-50.0 % Monocytes (%) (Auto) 0.0-12.0 % Basophils (%) (Auto) 0.0-2.0 % Neutrophils # (Auto) 1.6-8.6 10 ^3/uL Lymphocytes # (Auto) 0.4-5.4 10 ^3/uL Monocytes # (Auto) 0-1.3 10 ^3/uL Differential Total Cells Counted 100.0 100 Neutrophils % (Manual) 57 37.0-80.0 Band Neutrophils % (Manual) 0 Lymphocytes % (Manual) 33 10.0-50.0 Monocytes % (Manual) 9 0-12 Eosinophils % (Manual) 1 0-7 Basophils % (Manual) 0 0.0-2.0 Metamyelocytes % (manual) 0 Myelocytes % (Manual) 0 Promyelocytes % (Manual) 0 Blast Cells % (Manual) 0 Nucleated Red Blood Cells 1.0 % Reactive Lymphocytes 0 Platelet Estimate Increa Large Platelets Few Giant Platelets Few Hypochromasia (manual) Marked Anisocytosis (manual) Moderate Microcytosis Marked Tear Drop Cells Few Schistocytes Few Sodium Level 141 136-145 mmol/L Potassium Level 4.5 3.5-5.1 mmol/L Chloride Level 106 98-107 mmol/L Carbon Dioxide Level 27 20-31 mmol/L Anion Gap 8 5-15 Blood Urea Nitrogen 12 9-23 mg/dL Creatinine 1.13 0.700-1.30 mg/dL Glomerular Filtration Rate Calc 81 >90 mL/min BUN/Creatinine Ratio 10.6 10.0-20.0 Serum Glucose 86 74-106 mg/dL Calcium Level 10.0 8.7-10.4 mg/dL Miscellaneous Referred Test (Rm Tmp Sent to [facility] Ovalocytes Few Total Bilirubin 1.1 H 0.2-1.0 mg/dL Aspartate Amino Transferase (AST) 10 L 13-40 U/L Alanine Aminotransferase (ALT) < 9 7-40 U/L Alkaline Phosphatase 43 L 46-116 U/L Total Protein 6.7 5.7-8.2 g/dL Albumin 4.3 3.2-4.8 g/dL Test 12/30/24 18:47 12/30/24 15:10 Range/Units Urine Color Light-yellow Yellow Urine Clarity Clear Clear Urine pH 5.5 5.0-9.0 Urine Specific [place] 1.012 1.001-1.035 Urine Protein Negative Negative Urine Ketones Trace Negative Urine Blood Negative Negative /uL Urine Nitrite Negative Negative Urine Bilirubin Negative Negative Urine Urobilinogen Normal Negative mg/dL Urine Leukocyte Esterase Negative Negative /uL Urine RBC None seen 0 - 3 /hpf Urine Microscopic WBC < 1 0-3 /HPF Urine Squamous Epithelial Cells None seen <5 /hpf Urine Bacteria None seen None Seen /hpf Urine Mucus Few None Seen Urine Glucose Normal Normal mg/dL Prothrombin Time 11.3 9.3-11.8 sec Prothrombin Time INR 1.07 0.9-1.15 Activated Partial Thromboplast Time 23.3 L 24.5-34.5 SEC Assessment Left renal mass, 4.4 cm Plan/Recommendation Consult IR for possible Cryoablation (can be done as outpatient) If not amenable for above, then patient will need left radical nephrectomy at [facility]. MRI renal mass protocol Plan discussed with: Patient, Other CATHERINE FARR MD Jan 01, 2025 10:29
--- NOTE | 2025-01-01 15:05 | DVHPNRES ---
Progress Note Date Seen: Jan 01, 2025 Resident Creating Document: RONNY RIDLEY RESIDENT Medical Necessity Reason Pt with a Central, PICC or Fol: No Subjective Review of Systems The patient is a 44-year-old male with past medical history of hyperlipidemia and hemorrhoid who presented to [facility] ED with complaint of rectal bleeding..Patient reports symptoms progressively get worse with shortness of breath and weakness, found by his son outside his yard unconscious with no significant head trauma. Patient reports ongoing bleeding since 2018 in which he was diagnosed with hemorrhoids and has had intermittent episodes with one being x 4 days ago. Patient reports being seen for same complaint back in June 2024, was seen at the ED and found to have low HGB of 5.0 and had blood transfusion. Patient seen at bedside. Patient reports feeling better than yesterday. He was given 3 units of blood and today his hemoglobin was 8.2. He reports no abdominal pain to palpation, constipation, nausea, vomiting, headache or dizziness. Urology was consulted and recommended IR consultation for cryoablation. Patient reports: Feels better Changes from previous H/P or p: No Changes Objective vital signs Vital Sign Date Time Temp Pulse Resp B/P (MAP) Pulse Ox O2 Delivery O2 Flow Rate FiO2 01/01/25 13:00 98.8 58 18 148/79 (102) 97 98.8 01/01/25 07:30 Room Air* 0 21 Total Intake and Output 12/31/24 12/31/24 01/01/25 15:00 23:00 07:00 Intake Total 300 ml 0 ml Balance 300 ml 0 ml medications Current Medications Medications Dose Ordered Sig/Aden Route Start Time Stop Time Status Last Admin Dose Admin Pantoprazole Sodium 40 mg DAILY IV 12/31/24 10:00 01/01/25 08:41 40 MG Acetaminophen/ Hydrocodone Bitart 1 tab Q4HP PRN PO 12/30/24 16:45 01/01/25 12:02 1 TAB Ondansetron HCl 4 mg Q4HP PRN IV 12/30/24 16:45 Docusate Sodium 100 mg BIDPRN PRN PO 12/30/24 16:45 Acetaminophen 650 mg Q6HP PRN PO 12/30/24 16:45 Polyethylene Glycol 17 gm DAILY PO 01/01/25 10:00 01/01/25 08:41 17 GM Examination General: Patient alert and oriented in person, place and time. Patient following commands. Mild weakness HEENT: Normocephalic, atraumatic, moist mucous membranes Respiratory/pulmonary: Clear lungs bilaterally, vesicular murmurs present in almost all lung brunner, no associated crackles or wheezes. Cardiovascular: Normal heart sounds S1 and S2 with no associated murmurs Abdomen: Abdomen nondistended, there is no pain to palpation in any of the abdominal quadrants, no palpable masses. Extremities: There is no peripheral edema present at the lower extremities. Peripheral Pulses: 3+ Radial (R). 3+ Radial (L). 3+ Dorsalis pedis (R). 3+ Dorsalis pedis(L) Skin: No rashes or pruritus, there is no sacral edema present at this time. 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 Moderate amount of fecal material within the colon. - urology consulted and recommended to Consult IR for possible Cryoablation. If not amenable, then patient will need left radical nephrectomy at [facility]. - Miralax continued, docusate given DVT PPX: Ambulatory GI PPX: Protonix Diet: As tolerated Goals of care discussed with the patient for more than 23 minutes: Full code status Case discussed with Dr. Levine, Plan discussed with: Patient CC Plasma Assessment Blood Product Administration S: 1040 Date of Service: Jan 01, 2025 Billing Provider: MIREILLE LEVINE MD Common Visit Codes: [id number] INP/OBS CARE(HIGH) RONNY RIDLEY RESIDENT Jan 01, 2025 15:05 MIREILLE LEVINE MD Jan 01, 2025 16:32
[2025-01-01 19:07] LABS: Hemoglobin 8.7 g/dL (13.5-17.5); Nucleated Red Blood Cells % 0.3 %
[2025-01-01 19:10] LABS: Hematocrit 28.8 % (41.0-53.0); Mean Corpuscular Hemoglobin 20.3 pg (28.0-32.0); Mean Corpuscular Volume 67.5 fL (80.0-100.0)
[2025-01-01 19:23] LABS: Anion Gap 9 (5-15); Carbon Dioxide 26 mmol/L (20-31); Chloride 103 mmol/L (98-107); Potassium 4.4 mmol/L (3.5-5.1); Sodium 138 mmol/L (136-145)
[2025-01-01 19:30] LABS: BUN/Creatinine Ratio 11.0 (10.0-20.0); Blood Urea Nitrogen 12 mg/dL (9-23); Glucose 88 mg/dL (74-106)
[2025-01-01 19:31] LABS: Calcium 10.7 mg/dL (8.7-10.4)
[2025-01-01 19:51] LABS: Anisocytosis Marked; Stomatocytes Few
[2025-01-01 19:52] LABS: Tear Drop Cells FEW
[2025-01-02] VITALS (8 sets, daily range): BP systolic 108–146; BP diastolic 70–87; PULSE 55–78; RESP 16–18; TEMP 97.6–98.6; O2SAT 99–100
[2025-01-02] MEDS: GADOTERATE MEG 10 MMOL/20ml INJ (0.5MMOL/ml) IV ONE (07:10)
[2025-01-02 10:07] LABS: Anti-Nuclear Antibody Direct Negative (Negative)
--- NOTE | 2025-01-02 11:21 | DVHPNRES ---
Progress Note Date Seen: Jan 02, 2025 Resident Creating Document: RONNY RIDLEY RESIDENT Medical Necessity Reason Pt with a Central, PICC or Fol: No Subjective Review of Systems The patient is a 44-year-old male with past medical history of hyperlipidemia and hemorrhoids who presented to [facility] ED with complaint of rectal bleeding..Patient reports symptoms progressively get worse with shortness of breath and weakness, found by his son outside his yard unconscious with no significant head trauma. Patient reports ongoing bleeding since 2017 in which he was diagnosed with hemorrhoids and has had intermittent episodes with one being x 4 days ago. Patient reports being seen for same complaint back in June 2024, was seen at the ED and found to have low HGB of 5.0 and had blood transfusion. Patient seen at bedside. Patient reports feeling better considering his diagnosis of renal mass. He was given 3 units of blood and today his hemoglobin was 8.7. He reports no abdominal pain to palpation, constipation, nausea, vomiting, headache or dizziness. Urology was consulted and recommended IR consultation for cryoablation. MRI Abd/ Pelvis is being done today. Urology advised renal mass biopsy and cryoablation of renal mass pending monday, and recommend GI consult. Objective vital signs Vital Sign Date Time Temp Pulse Resp B/P (MAP) Pulse Ox O2 Delivery O2 Flow Rate FiO2 01/02/25 08:30 98.0 73 17 126/73 (90) 100 98.0 01/02/25 08:00 Room Air* 0 21 Total Intake and Output 01/01/25 01/01/25 01/02/25 15:00 23:00 07:00 Intake Total 1540 ml 700 ml Balance 1540 ml 700 ml medications Current Medications Medications Dose Ordered Sig/Aden Route Start Time Stop Time Status Last Admin Dose Admin Pantoprazole Sodium 40 mg DAILY IV 12/31/24 10:00 01/01/25 08:41 40 MG Acetaminophen/ Hydrocodone Bitart 1 tab Q4HP PRN PO 12/30/24 16:45 01/01/25 22:55 1 TAB Ondansetron HCl 4 mg Q4HP PRN IV 12/30/24 16:45 Docusate Sodium 100 mg BIDPRN PRN PO 12/30/24 16:45 Acetaminophen 650 mg Q6HP PRN PO 12/30/24 16:45 Polyethylene Glycol 17 gm DAILY PO 01/01/25 10:00 01/01/25 08:41 17 GM Examination General: Patient alert and oriented in person, place and time. Patient following commands. HEENT: Normocephalic, atraumatic, moist mucous membranes Respiratory/pulmonary: Clear lungs bilaterally, vesicular murmurs present in almost all lung brunner, no associated crackles or wheezes. Cardiovascular: Normal heart sounds S1 and S2 with no associated murmurs Abdomen: Abdomen nondistended, there is no pain to palpation in any of the abdominal quadrants, no palpable masses. Extremities: There is no peripheral edema present at the lower extremities. Peripheral Pulses: 3+ Radial (R). 3+ Radial (L). 3+ Dorsalis pedis (R). 3+ Dorsalis pedis(L) Skin: No rashes or pruritus, there is no sacral edema present at this time. 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 Moderate amount of fecal material within the colon. - Consulted Urology, advised renal mass biopsy and cryoablation of renal mass pending Monday, and recommend GI consult. - MiraLax continued, docusate given - MRI abdomen/ Pelvis done shows Examination is markedly degraded by motion. DVT PPX: Ambulatory GI PPX: Protonix Diet: As tolerated Goals of care discussed with the patient for 20 minutes: Full code status Case discussed with Dr. Caban Plan discussed with: Patient, Other (RN) CC Plasma Assessment Blood Product Administration S: 1040 Addendum Addendum Addendum I was physically present for the sofia portions of the service provided to patient by THE RESIDENT. I have reviewed the documentation, discussed the case with resident and agree with the resident's documentation except as noted. Also the patient's clinical case was discussed with the patient's nurse. This medical document was created using an electronic medical record system with computerized dictation system. Although this document has been carefully reviewed, there might still be some phonetic and typographical errors. These areas are purely typographical due to imperfections of the software programs, and do not reflect any compromise in the patient's medical care. Late signature. Date of Service: Jan 02, 2025 Billing Provider: PATY CABAN MD Common Visit Codes: [id number] INP/OBS CARE(HIGH) Secondary Visit Codes: [id number] CARE PLAN 30 MINUTES (20 minutes) RONNY RIDLEY RESIDENT Jan 02, 2025 11:21 PATY CABAN MD Jan 03, 2025 04:44
--- NOTE | 2025-01-02 12:52 | DVH ---
PROCEDURE: MRI MRI ABD PLEVIS W/WO CONT Indication: Previous CT demonstrates left renal soft tissue density lesion COMPARISON: 12/31/2024, 07/11/2024, 07/10/2024, ultrasound 07/11/2024 TECHNIQUE: Multiplanar multisequence images of the abdomen and pelvis were obtained with and without contrast. FINDINGS: Adrenal glands, spleen, pancreas unremarkable. No enhancing hepatic lesion. No evidence for cholelith iasis. Normal caliber common bile duct. Left renal T2 dark, T1 intermediate signal lesion measuring 3.4 x 4.0 x 2.8 cm. The contrast enhanced sequences are extremely degraded by motion however there does appear to ileana some increased signal wi thin the lesion on the post-contrast sequences. Right renal cyst measuring 7 mm. The abdominal aorta is normal in caliber. No retroperitoneal lymphadenopathy. Severe degenerative disc disease at L5-S1. Bladder partially distended. No free pelvic fluid. Diffusely decreased T1 signal within the marrow. No inguinal lymphadenopathy. Colonic diverticular disease. IMPRESSION: Examination is markedly degraded by motion. Left renal T2 dark, T1 intermediate signal lesion measuring 4.0 cm. The postcontrast sequences are m arkedly degraded by motion but there does appear to be some internal enhancing potentially within the lesion raising concern for potential renal mass/neoplasm. Previous ultrasound also demonstrated echo genic appearance to the lesion. Renal mass/ neoplasm remains in the differential. Recommend urology and oncology consultation for further management. Tissue sampling can also be obtained to further ev aluate. Patchy T1 decreased signal within the marrow which could be secondary to marrow replacement /anemia, myeloproliferative disorders, lymphoma / leukemia, malignancy.
--- NOTE | 2025-01-02 15:42 | DVHPN2 ---
Progress Note - Dictate Date Seen: Jan 02, 2025 Medical Necessity Reason Pt with a Central, PICC or Fol: No Subjective feeling well. bloody liquid BM today vital signs Vital Sign Date Time Temp Pulse Resp B/P (MAP) Pulse Ox O2 Delivery O2 Flow Rate FiO2 01/02/25 12:30 98.3 72 18 112/76 (88) 100 98.3 01/02/25 08:00 Room Air* 0 21 Total Intake and Output 01/01/25 01/01/25 01/02/25 15:00 23:00 07:00 Intake Total 1540 ml 700 ml Balance 1540 ml 700 ml medications Current Medications Medications Dose Ordered Sig/Aden Route Start Time Stop Time Status Last Admin Dose Admin Pantoprazole Sodium 40 mg DAILY IV 12/31/24 10:00 01/01/25 08:41 40 MG Acetaminophen/ Hydrocodone Bitart 1 tab Q4HP PRN PO 12/30/24 16:45 01/01/25 22:55 1 TAB Ondansetron HCl 4 mg Q4HP PRN IV 12/30/24 16:45 Docusate Sodium 100 mg BIDPRN PRN PO 12/30/24 16:45 Acetaminophen 650 mg Q6HP PRN PO 12/30/24 16:45 Polyethylene Glycol 17 gm DAILY PO 01/01/25 10:00 01/01/25 08:41 17 GM objective resting, pale laboratory and microbiology Laboratory Tests 01/01/25 18:55 Test 01/01/25 18:55 Range/Units Serum Glucose 88 74-106 mg/dL Assessment/Plan renal mass biopsy and cryoablation of renal mass pending monday. recommend GI consult transfuse PRBC hgb < 7 Problems(with codes): (1) Renal mass (2) Liver lesion (3) GI bleed (4) Severe anemia (5) Generalized weakness (6) Rectal bleeding (7) Gastrointestinal hemorrhage, unspecified (8) Symptomatic anemia Plan discussed with: Patient, Spouse, Other CC Plasma Assessment Blood Product Administration S: 1040 FAHAD DEAN NP Jan 02, 2025 15:42
--- NOTE | 2025-01-02 23:12 | DVHINCON2 ---
Date of service: Jan 02, [address] Hines Reason for Consultation Liver metastases History of Present Illness The patient is a 44-year-old male with past medical history of hyperlipidemia and hemorrhoid who presented to [facility] ED with complaint of rectal bleeding..Patient reports symptoms progressively get worse with shortness of breaths, found by her daughter outside his yard unconscious, getting worse that prompted this visit. Patient reports ongoing bleeding since 2018 in which he was diagnosed with hemorrhoids and has had intermittent episodes with one being x 4 days ago. Patient reports being seen for same complaint back in June 2024, was seen at the ED and found to have low HGB of 5.0 and had blood transfusion. Past Medical History Past Medical History High Lipids, Hemorrhoid Family History: Patient reports no known family medical history. Social History Marijuana use Allergies: Coded Allergies: Penicillins (Verified Allergy, Unknown, 07/10/24) Shellfish Allergy (Verified Allergy, Unknown, 12/16/24) Home Meds Active Scripts Cyclobenzaprine HCl (Cyclobenzaprine Hydrochlo) 10 Mg Tab, 10 MG PO HS for 5 Days, #10 TAB 0 Refills Prov:DYLON CELIS MD 07/12/24 Psyllium (Metamucil) 0.36 Gm Cap, 0.36 GM PO BID for 30 Days, #60 CAP 0 Refills Prov:DYLON CELIS MD 07/12/24 Lactulose (Lactulose) 10 Gm/15 Ml Arlene, 10 GM PO DAILY for 14 Days, #236 ML 0 Refills Prov:DYLON CELIS MD 07/12/24 Vital Signs Vital Signs Date Time Temp Pulse Resp B/P (MAP) Pulse Ox O2 Delivery O2 Flow Rate FiO2 01/02/25 21:00 98.6 56 18 146/77 (100) 100 98.6 01/02/25 08:00 Room Air* 0 21 Physical Exam Hemodynamically stable, full physical examination deferred Labs/Diagnostic Data Labs Test 01/01/25 18:55 01/01/25 05:56 12/31/24 13:29 12/31/24 13:24 Range/Units White Blood Count 6.4 # 4.4-10.8 10^3/uL Red Blood Count 4.27 L 4.5-5.90 10^6/uL Hemoglobin 8.7 L 13.5-17.5 g/dL Hematocrit 28.8 L 41.0-53.0 % Mean Corpuscular Volume 67.5 L 80.0-100.0 fL Mean Corpuscular Hemoglobin 20.3 L 28.0-32.0 pg Mean Corpuscular Hemoglobin Concent 30.1 L 32.0-36.0 g/dL Red Cell Distribution Width 30.6 H 11.8-14.3 % Platelet Count 602 H 140-450 10^3/uL Mean Platelet Volume 8.2 6.9-10.8 fL Neutrophils (%) (Auto) 58.5 37.0-80.0 % Lymphocytes (%) (Auto) 25.7 10.0-50.0 % Monocytes (%) (Auto) 12.7 H 0.0-12.0 % Eosinophils (%) (Auto) 2.1 0.0-7.0 % Basophils (%) (Auto) 1.0 0.0-2.0 % Neutrophils # (Auto) 3.7 1.6-8.6 10 ^3/uL Lymphocytes # (Auto) 1.6 0.4-5.4 10 ^3/uL Monocytes # (Auto) 0.8 0-1.3 10 ^3/uL Eosinophils # (Auto) 0.1 0-0.8 10 ^3/uL Basophils # (Auto) 0.1 0-0.2 10 ^3/uL Nucleated Red Blood Cells 0.3 % Platelet Estimate Increased Large Platelets Few Hypochromasia (manual) Marked Poikilocytosis (manual) Moderate Anisocytosis (manual) Marked Microcytosis Marked Target Cells Few Tear Drop Cells Few Stomatocytes Few Sodium Level 138 136-145 mmol/L Potassium Level 4.4 3.5-5.1 mmol/L Chloride Level 103 98-107 mmol/L Carbon Dioxide Level 26 20-31 mmol/L Anion Gap 9 5-15 Blood Urea Nitrogen 12 9-23 mg/dL Creatinine 1.09 0.700-1.30 mg/dL Glomerular Filtration Rate Calc 85 >90 mL/min BUN/Creatinine Ratio 11.0 10.0-20.0 Serum Glucose 88 74-106 mg/dL Calcium Level 10.7 H 8.7-10.4 mg/dL Differential Total Cells Counted 100.0 100 Neutrophils % (Manual) 57 37.0-80.0 Band Neutrophils % (Manual) 0 Lymphocytes % (Manual) 33 10.0-50.0 Monocytes % (Manual) 9 0-12 Eosinophils % (Manual) 1 0-7 Basophils % (Manual) 0 0.0-2.0 Metamyelocytes % (manual) 0 Myelocytes % (Manual) 0 Promyelocytes % (Manual) 0 Blast Cells % (Manual) 0 Reactive Lymphocytes 0 Giant Platelets Few Schistocytes Few Miscellaneous Referred Test ( Tmp Sent to [facility] Haptoglobin 125 23-355 mg/dL Anti-Nuclear Antibody Screen Negative Negative Test 12/31/24 04:31 12/30/24 18:47 12/30/24 15:10 Range/Units Ovalocytes Few Total Bilirubin 1.1 H 0.2-1.0 mg/dL Aspartate Amino Transferase (AST) 10 L 13-40 U/L Alanine Aminotransferase (ALT) < 9 7-40 U/L Alkaline Phosphatase 43 L 46-116 U/L Total Protein 6.7 5.7-8.2 g/dL Albumin 4.3 3.2-4.8 g/dL Urine Color Light-yellow Yellow Urine Clarity Clear Clear Urine pH 5.5 5.0-9.0 Urine Specific [place] 1.012 1.001-1.035 Urine Protein Negative Negative Urine Ketones Trace Negative Urine Blood Negative Negative /uL Urine Nitrite Negative Negative Urine Bilirubin Negative Negative Urine Urobilinogen Normal Negative mg/dL Urine Leukocyte Esterase Negative Negative /uL Urine RBC None seen 0 - 3 /hpf Urine Microscopic WBC < 1 0-3 /HPF Urine Squamous Epithelial Cells None seen <5 /hpf Urine Bacteria None seen None Seen /hpf Urine Mucus Few None Seen Urine Glucose Normal Normal mg/dL Prothrombin Time 11.3 9.3-11.8 sec Prothrombin Time INR 1.07 0.9-1.15 Activated Partial Thromboplast Time 23.3 L 24.5-34.5 SEC MRI ABD IMPRESSION: Examination is markedly degraded by motion. Left renal T2 dark, T1 intermediate signal lesion measuring 4.0 cm. The postcontrast sequences are markedly degraded by motion but there does appear to be some internal enhancing potentially within the lesion raising concern for potential renal mass/neoplasm. Previous ultrasound also demonstrated echogenic appearance to the lesion. Renal mass/ neoplasm remains in the differential. Recommend urology and oncology consultation for further management. Tissue maninder pling can also be obtained to further evaluate. Patchy T1 decreased signal within the marrow which could be secondary to marrow replacement /anemia, myeloproliferative disorders, lymphoma / leukemia, malignancy. CT SCAN ABD PELVIS IMPRESSION: 4.4 x 3.1 x 2.9 cm left renal soft tissue density lesion . Renal protocol CT /MRI is recommended for further evaluation. Subtle 1.3 cm area of enhancement over the hepatic dome. Attention to this area is recommended on subsequent imaging. Moderate amount of fecal material within the colon. Problems(with codes): (1) Liver lesion (2) Renal mass (3) Symptomatic anemia (4) Gastrointestinal hemorrhage, unspecified (5) Generalized weakness Plan/Recommendation Plan 44-year-old male admitted with recurrent rectal bleeding possibly from hemorrhoids and severe symptomatic anemia Incidentally he is found to have a renal mass with a small 1 cm lesion in the dome of the liver of unclear significance, MRI of the liver was nondiagnostic Patient is hemodynamically stable with a H&H over eight after 2 units PRBC Check tumor markers, urology consult noted; review records to see if the patient has had a previous colonoscopy Patient has been evaluated by Urology and a renal mass biopsy and cryoablation of renal mass pending monday. Continue supportive care, repeat liver imaging in 6-8 weeks to see if there was increase in size of the liver lesions and possible do a mage guided liver biopsy Plan discussed with: Other (None) ROSAURA DOWNING MD Jan 02, 2025 23:12
[2025-01-03] VITALS (7 sets, daily range): BP systolic 96–111; BP diastolic 56–74; PULSE 59–93; RESP 17–20; TEMP 97.7–99; O2SAT 100
[2025-01-03 07:23] LABS: Hemoglobin 8.5 g/dL (13.5-17.5); Nucleated Red Blood Cells % 0.0 %
[2025-01-03 07:27] LABS: Hematocrit 28.2 % (41.0-53.0); Mean Corpuscular Hemoglobin 20.2 pg (28.0-32.0); Mean Corpuscular Volume 67.3 fL (80.0-100.0)
[2025-01-03 09:08] LABS: Anisocytosis Marked; Tear Drop Cells FEW
[2025-01-03 09:09] LABS: Stomatocytes Few
[2025-01-03 14:25] LABS: Hematocrit 26.4 % (41.0-53.0); Hemoglobin 8.0 g/dL (13.5-17.5)
--- NOTE | 2025-01-03 15:28 | DVHPNRES ---
Progress Note Date Seen: Jan 03, 2025 Resident Creating Document: RONNY RIDLEY RESIDENT Medical Necessity Reason Pt with a Central, PICC or Fol: No Subjective Review of Systems The patient is a 44-year-old male with past medical history of hyperlipidemia and hemorrhoids who presented to [facility] ED with complaint of rectal bleeding. Patient reports symptoms progressively get worse with shortness of breath and weakness, found by his son outside his yard unconscious with no significant head trauma. Patient reports ongoing bleeding since 2018 in which he was diagnosed with hemorrhoids and has had intermittent episodes with one being x 5 days ago. Patient reports being seen for same complaint back in June 2024, was seen at the ED and found to have low HGB of 5.0 and had blood transfusion. Patient seen at bedside. Appears comfortable and alert x3. Patient complained of rectal bleeding this morning hemoglobin is 8.5, and left flank pain, denies any headache, dizziness, vomiting, nausea. Patient is awaiting cryoablation surgery on Monday. Monitoring H &H. Objective vital signs Vital Sign Date Time Temp Pulse Resp B/P (MAP) Pulse Ox O2 Delivery O2 Flow Rate FiO2 01/03/25 09:00 98.1 92 18 108/74 (85) 100 98.1 01/03/25 08:00 Room Air* 0 21 Total Intake and Output 01/02/25 01/02/25 01/03/25 15:00 23:00 07:00 Intake Total 918 ml 800 ml Balance 918 ml 800 ml medications Current Medications Medications Dose Ordered Sig/Aden Route Start Time Stop Time Status Last Admin Dose Admin Pantoprazole Sodium 40 mg DAILY IV 12/31/24 10:00 01/03/25 09:26 40 MG Acetaminophen/ Hydrocodone Bitart 1 tab Q4HP PRN PO 12/30/24 16:45 01/03/25 09:26 1 TAB Ondansetron HCl 4 mg Q4HP PRN IV 12/30/24 16:45 Docusate Sodium 100 mg BIDPRN PRN PO 12/30/24 16:45 Acetaminophen 650 mg Q6HP PRN PO 12/30/24 16:45 Polyethylene Glycol 17 gm DAILY PO 01/01/25 10:00 01/01/25 08:41 17 GM Examination General: Patient alert and oriented in person, place and time. Patient following commands. HEENT: Normocephalic, atraumatic, moist mucous membranes Respiratory/pulmonary: Clear lungs bilaterally, vesicular murmurs present in almost all lung brunner, no associated crackles or wheezes. Cardiovascular: Normal heart sounds S1 and S2 with no associated murmurs Abdomen: Abdomen nondistended, there is no pain to palpation in any of the abdominal quadrants, no palpable masses. Extremities: There is no peripheral edema present at the lower extremities. Peripheral Pulses: 3+ Radial (R). 3+ Radial (L). 3+ Dorsalis pedis (R). 3+ Dorsalis pedis(L) Skin: No rashes or pruritus, there is no sacral edema present at this time. 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 Moderate amount of fecal material within the colon. - Consulted Urology, advised renal mass biopsy and cryoablation of renal mass pending monday, and recommend GI consult. - GI was consulted and recommended to Check tumor markers, - CEA is 1.43 #Constipation - Miralax continued, docusate given - MRI abdomen/ Pelvis done shows Examination is markedly degraded by motion. #Polysubstance use disorder -Counseled on alcohol, and marijuana use cessation for 23 minutes including 10 minutes for tobacco use cessation DVT PPX: Ambulatory GI PPX: Protonix Diet: As tolerated Case discussed with Dr. Caban Plan discussed with: Patient, Other (RN) CC Plasma Assessment Blood Product Administration S: 1040 Addendum Addendum Addendum I was physically present for the sofia portions of the service provided to patient by THE RESIDENT. I have reviewed the documentation, discussed the case with resident and agree with the resident's documentation except as noted. Also the patient's clinical case was discussed with the patient's nurse. This medical document was created using an electronic medical record system with computerized dictation system. Although this document has been carefully reviewed, there might still be some phonetic and typographical errors. These areas are purely typographical due to imperfections of the software programs, and do not reflect any compromise in the patient's medical care. Late signature. Date of Service: Jan 03, 2025 Billing Provider: PATY CABAN MD Common Visit Codes: [id number] INP/OBS CARE(HIGH) RONNY RIDLEY RESIDENT Jan 03, 2025 15:28 PATY CABAN MD Jan 04, 2025 14:18
[2025-01-04] VITALS (7 sets, daily range): BP systolic 103–135; BP diastolic 49–78; PULSE 64–85; RESP 16–18; TEMP 97.4–98.1; O2SAT 98–100
[2025-01-04 06:35] LABS: Calcium 10.3 mg/dL (8.7-10.4); Chloride 105 mmol/L (98-107); Potassium 4.4 mmol/L (3.5-5.1); Sodium 140 mmol/L (136-145)
[2025-01-04 06:36] LABS: Hematocrit 26.0 % (41.0-53.0); Hemoglobin 8.0 g/dL (13.5-17.5); Mean Corpuscular Hemoglobin 20.3 pg (28.0-32.0); Mean Corpuscular Volume 66.2 fL (80.0-100.0); Nucleated Red Blood Cells % 0.2 %
[2025-01-04 06:37] LABS: Anion Gap 8 (5-15); Carbon Dioxide 27 mmol/L (20-31)
[2025-01-04 06:41] LABS: BUN/Creatinine Ratio 15.8 (10.0-20.0); Blood Urea Nitrogen 16 mg/dL (9-23); Glucose 92 mg/dL (74-106)
[2025-01-04 07:15] LABS: Anisocytosis Moderate
[2025-01-04 07:16] LABS: Tear Drop Cells FEW
--- NOTE | 2025-01-04 10:13 | DVHPNRES ---
Progress Note Date Seen: Jan 04, 2025 Resident Creating Document: RONNY RIDLEY RESIDENT Medical Necessity Reason Pt with a Central, PICC or Fol: No Subjective Review of Systems The patient is a 44-year-old male with past medical history of hyperlipidemia and hemorrhoids who presented to [facility] ED with complaint of rectal bleeding. Patient reports symptoms progressively get worse with shortness of breath and weakness, found by his son outside his yard unconscious with no significant head trauma. Patient reports ongoing bleeding since 2018 in which he was diagnosed with hemorrhoids and has had intermittent episodes with one being x 5 days ago. Patient reports being seen for same complaint back in June 2024, was seen at the ED and found to have low HGB of 5.0 and had blood transfusion. Patient seen at bedside. Appears comfortable and alert x3. Patient complained of rectal bleeding this morning hemoglobin is 8.0, and left flank pain when he strains, denies any headache, dizziness, vomiting, nausea. Patient is awaiting cryoablation surgery on Monday. Monitoring H &H. Objective vital signs Vital Sign Date Time Temp Pulse Resp B/P (MAP) Pulse Ox O2 Delivery O2 Flow Rate FiO2 01/04/25 07:55 64 16 100 Room Air* 0 21 01/04/25 05:00 98.0 103/61 (75) 98.0 Total Intake and Output 01/03/25 01/03/25 01/04/25 15:00 23:00 07:00 Intake Total 900 ml 640 ml Balance 900 ml 640 ml medications Current Medications Medications Dose Ordered Sig/Aden Route Start Time Stop Time Status Last Admin Dose Admin Pantoprazole Sodium 40 mg DAILY IV 12/31/24 10:00 01/04/25 08:21 40 MG Acetaminophen/ Hydrocodone Bitart 1 tab Q4HP PRN PO 12/30/24 16:45 01/04/25 08:22 1 TAB Ondansetron HCl 4 mg Q4HP PRN IV 12/30/24 16:45 Docusate Sodium 100 mg BIDPRN PRN PO 12/30/24 16:45 Acetaminophen 650 mg Q6HP PRN PO 12/30/24 16:45 Polyethylene Glycol 17 gm DAILY PO 01/01/25 10:00 01/04/25 08:21 17 GM Examination General: Patient alert and oriented in person, place and time. Patient following commands. HEENT: Normocephalic, atraumatic, moist mucous membranes Respiratory/pulmonary: Clear lungs bilaterally, vesicular murmurs present in almost all lung brunner, no associated crackles or wheezes. Cardiovascular: Normal heart sounds S1 and S2 with no associated murmurs Abdomen: Abdomen nondistended, there is no pain to palpation in any of the abdominal quadrants, no palpable masses. Extremities: There is no peripheral edema present at the lower extremities. Peripheral Pulses: 3+ Radial (R). 3+ Radial (L). 3+ Dorsalis pedis (R). 3+ Dorsalis pedis(L) Skin: No rashes or pruritus, there is no sacral edema present at this time. 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 Moderate amount of fecal material within the colon. - Consulted Urology, advised renal mass biopsy and cryoablation of renal mass pending monday, and recommend GI consult. - GI was consulted and recommended to Check tumor markers, and Continue supportive care, repeat liver imaging in 6-8 weeks to see if there was increase in size of the liver lesions and possible do a mage guided liver biopsy - CEA is 1.43 - AFP:3.9 #Constipation - Miralax continued, docusate given - MRI abdomen/ Pelvis done shows Examination is markedly degraded by motion. #Polysubstance use disorder -Counseled on alcohol, and marijuana use cessation for 23 minutes including 10 minutes for tobacco use cessation DVT PPX: Ambulatory GI PPX: Protonix Diet: As tolerated Goals of care discussed with the patient for more than 21 minutes: Full code status Case discussed with Dr. Tejada Plan discussed with: Patient CC Plasma Assessment Blood Product Administration S: 1040 Date of Service: Jan 04, 2025 Billing Provider: KAYLYN TEJADA MD Common Visit Codes: [id number] INP/OBS CARE(HIGH) RONNY RIDLEY RESIDENT Jan 04, 2025 10:13 KAYLYN TEJADA MD Jan 04, 2025 23:16
--- NOTE | 2025-01-04 21:32 | DVHPN2 ---
Progress Note - Dictate Date Seen: Jan 04, 2025 Medical Necessity Reason Pt with a Central, PICC or Fol: No Subjective Patient seen at bedside resting comfortably Patient has been having intermittent bleeding from his hemorrhoids off and on No nausea vomiting or abdominal pain He is tolerating a diet Patient stated he had a recent colonoscopy in June of this year possibly in [place] as no records are available here vital signs Vital Sign Date Time Temp Pulse Resp B/P (MAP) Pulse Ox O2 Delivery O2 Flow Rate FiO2 01/04/25 21:00 97.4 83 17 117/49 (71) 100 97.4 01/04/25 07:55 Room Air* 0 21 Total Intake and Output 01/03/25 01/03/25 01/04/25 15:00 23:00 07:00 Intake Total 900 ml 640 ml Balance 900 ml 640 ml medications Current Medications Medications Dose Ordered Sig/Aden Route Start Time Stop Time Status Last Admin Dose Admin Pantoprazole Sodium 40 mg DAILY IV 12/31/24 10:00 01/04/25 08:21 40 MG Acetaminophen/ Hydrocodone Bitart 1 tab Q4HP PRN PO 12/30/24 16:45 01/04/25 08:22 1 TAB Ondansetron HCl 4 mg Q4HP PRN IV 12/30/24 16:45 Docusate Sodium 100 mg BIDPRN PRN PO 12/30/24 16:45 Acetaminophen 650 mg Q6HP PRN PO 12/30/24 16:45 Polyethylene Glycol 17 gm DAILY PO 01/01/25 10:00 01/04/25 08:21 17 GM objective General Appearance: Alert, Oriented X3, Cooperative, No acute distress HEENT: Atraumatic, PERRLA, EOMI, Mucous membr. moist/pink Respiratory: Normal air movement Cardiovascular: Regular rate, Normal S1, Normal S2, No murmurs Abdominal: Normal bowel sounds, Soft, No tenderness, No hepatospenomegaly, No masses Extremities: No clubbing, No cyanosis, No edema, Normal pulses, No tenderness/swelling Skin: No rashes, No breakdown, No significant lesion Neuro: Normal speech, Normal tone, Sensation intact, Cranial nerves 3-12 NL, Reflexes 2+, Other (Generalized weakness) Psych/Mental Status: Mental status NL, Mood NL laboratory and microbiology Laboratory Tests 01/04/25 05:50 Test 01/04/25 05:50 Range/Units Serum Glucose 92 74-106 mg/dL Problems(with codes): (1) Liver lesion (2) Renal mass (3) Symptomatic anemia (4) Gastrointestinal hemorrhage, unspecified (5) Rectal bleeding (6) Generalized weakness (7) Severe anemia Prognosis Plan Patient is awaiting cryoablation surgery on Monday. Monitoring H &H. Review patient's previous colonoscopy report when available Elective hemorrhoidectomy once medically stabilized Iron supplements I will follow patient with you Dietary Evaluation Review Comments: Continue current POC Expected Outcomes/Goals: intake to meet 75% estimated needs fu 3-5 days Plan discussed with: Patient CC Plasma Assessment Blood Product Administration S: 1040 ROSAURA DOWNING MD Jan 04, 2025 21:32
[2025-01-05] VITALS (8 sets, daily range): BP systolic 99–127; BP diastolic 44–82; PULSE 61–81; RESP 14–17; TEMP 97.1–97.8; O2SAT 95–100
[2025-01-05 06:08] LABS: Hemoglobin 8.0 g/dL (13.5-17.5)
[2025-01-05 06:11] LABS: Hematocrit 26.3 % (41.0-53.0); Mean Corpuscular Hemoglobin 20.5 pg (28.0-32.0); Mean Corpuscular Volume 67.2 fL (80.0-100.0); Nucleated Red Blood Cells % 0.1 %
[2025-01-05 06:50] LABS: Anisocytosis Moderate
[2025-01-05 06:51] LABS: Tear Drop Cells FEW
[2025-01-05] MEDS: HYDROCORTISONE ACET 25 MG RECTAL SUPP PR ONE (12:00)
--- NOTE | 2025-01-05 14:54 | DVHPN2 ---
Eyes: No Pain, No Vision change, No Conjunctivae inflammation, No Eyelid inflammation, No Other, No Redness ENT: No Ear pain, No Ear discharge, No Nose pain, No Nose discharge, No Nose congestion, No Mouth pain, No Mouth swelling, No Throat pain, No Throat swelling, No Other Cardiovascular: No Chest Pain, No Palpitations, No Orthopnea, No Paroxysmal Noc. Dyspnea, No Edema, No Lt Headedness, No Other Respiratory: No Cough, No Dry, No Shortness of breath, No SOB with excertion, No Wheezing, No Hemoptysis, No Pleuritic Pain, No Sputum, No Other Gastrointestinal: No Nausea, No Vomiting, No Abdominal Pain, No Diarrhea, No Constipation, No Melena, No Hematochezia, No Other Genitourinary: No Dysuria, No Frequency, No Incontinence, No Hematuria, No Retention; Other (Rectal bleeding) Musculoskeletal: No other, No neck pain, No shoulder pain, No arm pain, No back pain, No hand pain, No leg pain, No foot pain Skin: No Rash, No Lesions, No Jaundice, No Bruising, No Other Objective Vitals Vital Signs Date Time Temp Pulse Resp B/P (MAP) Pulse Ox O2 Delivery O2 Flow Rate FiO2 01/05/25 12:30 97.7 64 14 112/69 (83) 100 97.7 01/05/25 08:00 Room Air* 0 21 Intake/Output Intake and Output 01/05/25 07:00 Intake Total 0 ml Output Total 350 ml Balance -350 ml Intake Oral 0 ml Output Urine Total 350 ml # Voids 3 # Bowel Movements 1 Medications Current Medications Medications Dose Ordered Sig/Aden Route Start Time Stop Time Status Last Admin Dose Admin Pantoprazole Sodium 40 mg DAILY IV 12/31/24 10:00 01/05/25 10:07 40 MG Acetaminophen/ Hydrocodone Bitart 1 tab Q4HP PRN PO 12/30/24 16:45 01/05/25 10:07 1 TAB Ondansetron HCl 4 mg Q4HP PRN IV 12/30/24 16:45 Docusate Sodium 100 mg BIDPRN PRN PO 12/30/24 16:45 Acetaminophen 650 mg Q6HP PRN PO 12/30/24 16:45 Polyethylene Glycol 17 gm DAILY PO 01/01/25 10:00 01/04/25 08:21 17 GM Laboratory Results Laboratory Tests 01/04/25 05:50 01/05/25 05:18 Urinalysis Test 12/30/24 18:47 Urine Color Light-yellow (Yellow) Urine Clarity Clear (Clear) Urine pH 5.5 (5.0-9.0) Urine Specific [place] 1.012 (1.001-1.035) Urine Protein Negative (Negative) Urine Ketones Trace (Negative) Urine Blood Negative /uL (Negative) Urine Nitrite Negative (Negative) Urine Bilirubin Negative (Negative) Urine Urobilinogen Normal mg/dL (Negative) Urine Leukocyte Esterase Negative /uL (Negative) Urine RBC None seen /hpf (0 - 3) Urine Microscopic WBC < 1 /HPF (0-3) Urine Squamous Epithelial Cells None seen /hpf (<5) Urine Bacteria None seen /hpf (None Seen) Urine Mucus Few (None Seen) Urine Glucose Normal mg/dL (Normal) KAYLYN RODRIGUEZ MD Jan 05, 2025 14:54
--- NOTE | 2025-01-05 16:27 | DVHPNRES ---
Progress Note Date Seen: Jan 05, 2025 Resident Creating Document: SELAM GARCIA RESIDENT Medical Necessity Reason Pt with a Central, PICC or Fol: No Subjective Review of Systems Patient is a 44-year-old male with past medical history of hyperlipidemia, hemorrhoids, and family history of sickle cell trait, who presented to [facility] ED with complaint of rectal bleeding. Patient reports symptoms progressively get worse with shortness of breath and weakness, found by his son outside his yard unconscious with no significant head trauma. Patient denies fever, chest pain, chills, palpitations, and other symptoms. Patient reports ongoing bleeding since 2018 in which he was diagnosed with hemorrhoids and has had intermittent episodes with one being 5 days before presentation. Patient refers a similar episode in June of 2024 which required blood transfusions. On evaluation, patient was in acute distress, tachycardic, with pale mucosas and conjuctiva. Initial labs show WBCs 4.8, hemoglobin 4.6, hematocrit 16.7, platelets 537, sodium 140, potassium 4.3, creatinine 1.36, and BUN 9. Patient was admitted for further workup and blood transfusions. Patient seen at bedside. Patient is oriented, stating that today felt weak. Stated that earlier in the day during bowel movement he had rectal bleeding he describes his leaking into the toilet. He states that this is more than normal amount. Additionally, he states he is having intense rectal pain, worse on the left than the right. Hydrocortisone suppository and Sitz baths were ordered for symptomatic relief. The patient was seen by GI who recommended outpatient treatment, however due to increased intensity of pain and bleeding surgery consult has been placed. Today's labs show hemoglobin stable at 8, WBCs 3.9, hematocrit 26.3, platelets 567. Patient is pending cryoablation procedure tomorrow. Review of symptoms: Constitutional: Denies weight loss, fever and chills. HEENT: Denies changes in vision and hearing. Respiratory: Denies shortness of breath and cough Cardiovascular: Denies chest discomfort or palpitations GI: States increased rectal pain and rectal bleeding : Denies dysuria and urinary frequency. Musculoskeletal: Denies myalgias and joint pain Skin: Denies rash and pruritus. Neurological: denies dizziness headache vision or hearing problems Objective vital signs Vital Sign Date Time Temp Pulse Resp B/P (MAP) Pulse Ox O2 Delivery O2 Flow Rate FiO2 7/13/25 12:30 97.7 64 14 112/69 (83) 100 97.7 01/05/25 08:00 Room Air* 0 21 Total Intake and Output 01/04/25 01/04/25 01/05/25 15:00 23:00 07:00 Intake Total 0 ml Output Total 350 ml Balance -350 ml medications Current Medications Medications Dose Ordered Sig/Aden Route Start Time Stop Time Status Last Admin Dose Admin Pantoprazole Sodium 40 mg DAILY IV 12/31/24 10:00 01/05/25 10:07 40 MG Acetaminophen/ Hydrocodone Bitart 1 tab Q4HP PRN PO 12/30/24 16:45 01/05/25 10:07 1 TAB Ondansetron HCl 4 mg Q4HP PRN IV 12/30/24 16:45 Docusate Sodium 100 mg BIDPRN PRN PO 12/30/24 16:45 Acetaminophen 650 mg Q6HP PRN PO 12/30/24 16:45 Polyethylene Glycol 17 gm DAILY PO 01/01/25 10:00 01/04/25 08:21 17 GM Examination General: Patient alert and oriented in person, place and time. Patient following commands. HEENT: Normocephalic, atraumatic, moist mucous membranes Respiratory/pulmonary: Clear lungs bilaterally, vesicular murmurs present in almost all lung brunner, no associated crackles or wheezes. Cardiovascular: Normal heart sounds S1 and S2 with no associated murmurs Abdomen: Abdomen nondistended, there is no pain to palpation in any of the abdominal quadrants, no palpable masses. Presence of mulitple external hemorrhoids around anus, largest on the left, extremely tender to touch Extremities: There is no peripheral edema present at the lower extremities. Peripheral Pulses: 3+ Radial (R). 3+ Radial (L). 3+ Dorsalis pedis (R). 3+ Dorsalis pedis(L) Skin: no rashes Neurological: Intact cranial nerves with no focal neurologic deficits laboratory and microbiology Laboratory Tests 01/05/25 05:18 01/04/25 05:50 Test 01/04/25 05:50 Range/Units Serum Glucose 92 74-106 mg/dL Problem List/Assessment/Plan Problem List/Assessment/Plan Assessment and Plan: Symptomatic anemia due to blood loss -Hg is 8.0 today, monitor labs -3 units of blood transfusion given, Monitor H&H Rectal bleeding due to hemorrhoids -Pain control management - Management of fluids and electrolytes -GI consulted: Recommended outpatient follow up -Hydrocortisone suppository and Sitz bath ordered for symptomatic treatment -General surgery consulted 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 Moderate amount of fecal material within the colon. - Consulted Urology, advised renal mass biopsy and cryoablation of renal mass pending monday, and recommend GI consult. - GI was consulted and recommended to Check tumor markers, and Continue supportive care, repeat liver imaging in 6-8 weeks to see if there was increase in size of the liver lesions and possible do a mage guided liver biopsy - CEA is 1.43 - AFP:3.9 Constipation - Miralax continued, docusate given - MRI abdomen/ Pelvis done shows Examination is markedly degraded by motion. Polysubstance use disorder -Counseled on alcohol, and marijuana use cessation for 23 minutes including 10 minutes for tobacco use cessation DVT PPX: Ambulatory GI PPX: Protonix Case discussed with Dr. Tejada Goals of care discussed with patient for 25 minutes. FULL CODE. Plan discussed with: Patient Dietary Evaluation Review Comments: Continue current POC Expected Outcomes/Goals: intake to meet 75% estimated needs fu 3-5 days CC Plasma Assessment Blood Product Administration S: 1040 Date of Service: Jan 05, 2025 Billing Provider: KAYLYN TEJADA MD Common Visit Codes: [id number] INP/OBS CARE(HIGH) SELAM GARCIA RESIDENT Jan 05, 2025 16:27 KAYLYN TEJADA MD Jan 05, 2025 23:28
--- NOTE | 2025-01-05 18:22 | DVHPN2 ---
Progress Note - Dictate Date Seen: Jan 05, 2025 Medical Necessity Reason Pt with a Central, PICC or Fol: No Subjective Patient has been having intermittent bleeding from his hemorrhoids off and on No nausea vomiting or abdominal pain He is tolerating a diet Patient stated he had a recent colonoscopy in June of this year possibly in [place] as no records are available here vital signs Vital Sign Date Time Temp Pulse Resp B/P (MAP) Pulse Ox O2 Delivery O2 Flow Rate FiO2 01/05/25 16:30 97.8 61 16 127/82 (97) 100 97.8 01/05/25 08:00 Room Air* 0 21 Total Intake and Output 01/04/25 01/04/25 01/05/25 15:00 23:00 07:00 Intake Total 0 ml Output Total 350 ml Balance -350 ml medications Current Medications Medications Dose Ordered Sig/Aden Route Start Time Stop Time Status Last Admin Dose Admin Pantoprazole Sodium 40 mg DAILY IV 12/31/24 10:00 01/05/25 10:07 40 MG Acetaminophen/ Hydrocodone Bitart 1 tab Q4HP PRN PO 12/30/24 16:45 01/05/25 10:07 1 TAB Ondansetron HCl 4 mg Q4HP PRN IV 12/30/24 16:45 Docusate Sodium 100 mg BIDPRN PRN PO 12/30/24 16:45 Acetaminophen 650 mg Q6HP PRN PO 12/30/24 16:45 Polyethylene Glycol 17 gm DAILY PO 01/01/25 10:00 01/04/25 08:21 17 GM objective General Appearance: Alert, Oriented X3, Cooperative, No acute distress HEENT: Atraumatic, PERRLA, EOMI, Mucous membr. moist/pink Respiratory: Normal air movement Cardiovascular: Regular rate, Normal S1, Normal S2, No murmurs Abdominal: Normal bowel sounds, Soft, No tenderness, No hepatospenomegaly, No masses Extremities: No clubbing, No cyanosis, No edema, Normal pulses, No tenderness/swelling Skin: No rashes, No breakdown, No significant lesion Neuro: Normal speech, Normal tone, Sensation intact, Cranial nerves 3-12 NL, Reflexes 2+, Other (Generalized weakness) Psych/Mental Status: Mental status NL, Mood NL laboratory and microbiology Laboratory Tests 01/05/25 05:18 01/04/25 05:50 Test 01/04/25 05:50 Range/Units Serum Glucose 92 74-106 mg/dL Problems(with codes): (1) Rectal bleeding (2) Generalized weakness (3) Severe anemia (4) Gastrointestinal hemorrhage, unspecified (5) Symptomatic anemia (6) Renal mass (7) Liver lesion Prognosis Plan Patient is awaiting cryoablation surgery on Monday. Monitoring H &H. Review patient's previous colonoscopy report when available Elective hemorrhoidectomy once medically stabilized Iron supplements; H&H is stable I will follow patient with you Dietary Evaluation Review Comments: Continue current POC Expected Outcomes/Goals: intake to meet 75% estimated needs fu 3-5 days Plan discussed with: Patient CC Plasma Assessment Blood Product Administration S: 1040 ROSAURA DOWNING MD Jan 05, 2025 18:22
[2025-01-06] VITALS (9 sets, daily range): BP systolic 113–147; BP diastolic 62–82; PULSE 66–80; RESP 16–20; TEMP 98.2–99.3; O2SAT 100
[2025-01-06 06:28] LABS: Hematocrit 22.9 % (41.0-53.0); Hemoglobin 7.3 g/dL (13.5-17.5)
[2025-01-06 06:48] LABS: Anion Gap 10 (5-15); Carbon Dioxide 26 mmol/L (20-31); Chloride 105 mmol/L (98-107); Potassium 3.7 mmol/L (3.5-5.1); Sodium 141 mmol/L (136-145)
[2025-01-06 06:49] LABS: Calcium 10.1 mg/dL (8.7-10.4)
[2025-01-06 06:54] LABS: BUN/Creatinine Ratio 11.9 (10.0-20.0); Blood Urea Nitrogen 12 mg/dL (9-23); Glucose 106 mg/dL (74-106)
[2025-01-06] MEDS: MIDAZOLAM HCL 2MG/2ML 2ml VIAL (1mg/ml) IV ONE (09:00)
[2025-01-06] MEDS: fentaNYL CITRATE 100 MCG/2 ML VL IV ONE (09:00)
[2025-01-06] MEDS: GELATIN 1 SPONGE SIZE 50 TOP ONE (09:26)
[2025-01-06] MEDS: MIDAZOLAM HCL 2MG/2ML 2ml VIAL (1mg/ml) ONE (10:56)
[2025-01-06] MEDS: fentaNYL CITRATE 100 MCG/2 ML VL ONE (10:57)
[2025-01-06] MEDS: MORPHINE SULFATE 4 MG/ML SYR/VIAL IV ONE (12:17)
--- NOTE | 2025-01-06 12:45 | DVH ---
CT PAR TISSUE ABLATION HISTORY: CRYOABLATION L RENAL Mass PROCEDURE: Informed consent was previously obtained in clinic. The patient was placed in prone posit ion. Towels were placed on the lower extremities. An initial limited noncontrast US/CT scan of the ab domen was obtained for localization purposes. The entry site was prepped with chlorhexidine which was allowed to dry and draped in the usual sterile fashion. Time out was performed. IV sedation was admi nistered. 1% lidocaine was used for local anesthetic. Under intermittent US/CT guidance, the left kid reg mass lesion was accessed with a Filecoinno 17/18 gauge coaxial biopsy needle system, and two core biop sies were obtained. Gelfoam was injected for hemostasis. With US/CT guidance, the lesion was then acc essed with 2 Ice Force cryoprobes. The cryoprobes were then connected to the cryoablation machine, an d two freeze-thaw cycles were performed, with intermittent CT scans obtained to monitor progress. The probes were removed. Completion CT demonstrated no evidence of immediate complication. DLP = 3436 mGy-cm. SEDATION: Dr. Kandace Elise was personally responsible for the administration of moderate sedation during the procedure performed, including the use of an independent trained observer who had no other duties during the procedure. The drugs utilized were IV fentanyl and versed (see nursing log for details). The total time of supervision by the attending physician was approximately 90 minutes. FINDINGS: 4.2 x 3.1 cm left mid pole renal pole solid enhancing mass is identified. CT images reveal the iceball to encompass the entire region of the mass lesion. IMPRESSION: US/CT-guided biopsy and cryoablation of left mid pole renal pole mass. PLAN: Followup contrast enhanced CT would be reasonable in about 2-3 months to assess for viability o r lack thereof.
[2025-01-06] MEDS: ONDANSETRON HCL 4 MG/2 ML VIAL IV PRN (13:13)
[2025-01-06] MEDS: MORPHINE SULFATE INJ 2 MG/ml SYRG IV ONE (13:14)
--- NOTE | 2025-01-06 14:53 | DVHPN2 ---
Progress Note - Dictate Date Seen: Jan 06, 2025 Medical Necessity Reason Pt with a Central, PICC or Fol: No Subjective feeling well. vital signs Vital Sign Date Time Temp Pulse Resp B/P (MAP) Pulse Ox O2 Delivery O2 Flow Rate FiO2 01/06/25 13:14 66 18 136/75 01/06/25 12:45 99.3 100 99.3 01/06/25 08:00 Room Air* 0 21 Total Intake and Output 01/05/25 01/05/25 01/06/25 15:00 23:00 07:00 Intake Total 250 ml Balance 250 ml medications Current Medications Medications Dose Ordered Sig/Aden Route Start Time Stop Time Status Last Admin Dose Admin Pantoprazole Sodium 40 mg DAILY IV 12/31/24 10:00 01/05/25 10:07 40 MG Acetaminophen/ Hydrocodone Bitart 1 tab Q4HP PRN PO 12/30/24 16:45 01/05/25 19:34 1 TAB Ondansetron HCl 4 mg Q4HP PRN IV 12/30/24 16:45 01/06/25 13:13 4 MG Docusate Sodium 100 mg BIDPRN PRN PO 12/30/24 16:45 Acetaminophen 650 mg Q6HP PRN PO 12/30/24 16:45 Polyethylene Glycol 17 gm DAILY PO 01/01/25 10:00 01/04/25 08:21 17 GM objective resting, pale s/p renal biopsy and cryoablation laboratory and microbiology Laboratory Tests 01/06/25 04:52 01/05/25 05:18 Test 01/06/25 04:52 Range/Units Serum Glucose 106 74-106 mg/dL Assessment/Plan renal mass biopsy and cryoablation of renal mass done today CT renal mass protocol in 3 months transfuse PRBC hgb < 7 Dietary Evaluation Review Comments: Continue current POC Expected Outcomes/Goals: intake to meet 75% estimated needs fu 3-5 days Plan discussed with: Patient, Other CC Plasma Assessment Blood Product Administration S: 1040 FAHAD DEAN NP Jan 06, 2025 14:53
--- NOTE | 2025-01-06 17:54 | DVHPNRES ---
Progress Note Date Seen: Jan 06, 2025 Resident Creating Document: RONNY RIDLEY RESIDENT Medical Necessity Reason Pt with a Central, PICC or Fol: No Subjective Review of Systems The patient is a 44-year-old male with past medical history of hyperlipidemia and hemorrhoids who presented to [facility] ED with complaint of rectal bleeding. Patient reports symptoms progressively get worse with shortness of breath and weakness, found by his son outside his yard unconscious with no significant head trauma. Patient reports ongoing bleeding since 2018 in which he was diagnosed with hemorrhoids and has had intermittent episodes with one being x 5 days ago. Patient reports being seen for same complaint back in June 2024, was seen at the ED and found to have low HGB of 5.0 and had blood transfusion. Patient seen at bedside. Patient was in severe distress, pain due to the cryoablation surgery. He has active rectal bleeding and states that he sits in the toilet for 10 minutes and waits until the bleeding stops. His hemoglobin was 7.3 today, 1 unit of blood was transfused, monitoring H& H. Pain medication was given, 6 Mg of IV Morphine. Objective vital signs Vital Sign Date Time Temp Pulse Resp B/P (MAP) Pulse Ox O2 Delivery O2 Flow Rate FiO2 01/06/25 15:10 98.2 66 18 140/82 98.2 01/06/25 12:45 100 01/06/25 08:00 Room Air* 0 21 Total Intake and Output 01/05/25 01/05/25 01/06/25 15:00 23:00 07:00 Intake Total 250 ml Balance 250 ml medications Current Medications Medications Dose Ordered Sig/Aden Route Start Time Stop Time Status Last Admin Dose Admin Pantoprazole Sodium 40 mg DAILY IV 12/31/24 10:00 01/05/25 10:07 40 MG Acetaminophen/ Hydrocodone Bitart 1 tab Q4HP PRN PO 12/30/24 16:45 01/06/25 16:11 1 TAB Ondansetron HCl 4 mg Q4HP PRN IV 12/30/24 16:45 01/06/25 13:13 4 MG Docusate Sodium 100 mg BIDPRN PRN PO 12/30/24 16:45 Acetaminophen 650 mg Q6HP PRN PO 12/30/24 16:45 Polyethylene Glycol 17 gm DAILY PO 01/01/25 10:00 01/04/25 08:21 17 GM Examination General: Patient alert and oriented in person, place and time. Patient following commands. Patient in severe distress due to pain HEENT: Normocephalic, atraumatic, moist mucous membranes Respiratory/pulmonary: Clear lungs bilaterally, vesicular murmurs present in almost all lung brunner, no associated crackles or wheezes. Cardiovascular: Normal heart sounds S1 and S2 with no associated murmurs Abdomen: Abdomen nondistended, there is Severe pain in the left flank and rectal area , no palpable masses. Extremities: There is no peripheral edema present at the lower extremities. Peripheral Pulses: 3+ Radial (R). 3+ Radial (L). 3+ Dorsalis pedis (R). 3+ Dorsalis pedis(L) Skin: No rashes or pruritus, there is no sacral edema present at this time. Neurological: Intact cranial nerves with no focal neurologic deficits laboratory and microbiology Laboratory Tests 01/06/25 04:52 01/05/25 05:18 Test 01/06/25 04:52 Range/Units Serum Glucose 106 74-106 mg/dL Problem List/Assessment/Plan Problem List/Assessment/Plan #Symptomatic anemia due to blood loss -Hg is 7.3 today, monitor labs -3 units of blood transfusion given, and 1 unit of blood given today. 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 Moderate amount of fecal material within the colon. - Consulted Urology, recommended CT renal mass protocol in 3 months. - Renal mass biopsy and cryoablation done today, and 6mg IV morphine was given - GI was consulted and recommended to Check tumor markers, and Continue supportive care, repeat liver imaging in 6-8 weeks to see if there was increase in size of the liver lesions and possible do a mage guided liver biopsy - CEA is 1.43 - AFP:3.9 #Constipation - Miralax continued, docusate given - MRI abdomen/ Pelvis done shows Examination is markedly degraded by motion. #Polysubstance use disorder -Counseled on alcohol, and marijuana use cessation for 23 minutes including 10 minutes for tobacco use cessation DVT PPX: Ambulatory GI PPX: Protonix Diet: As tolerated Goals of care discussed with the patient for more than 21 minutes: Full code status Case discussed with Dr. Levine Plan discussed with: Patient My Orders My Orders Orders - RONNY RIDLEY Procedure Category Date Status Time Ct Guidance For CT 01/06/25 Resulted Needle Placeme 08:[address] 01/06/25 Resulted 08:02 Us Guidance For US 01/06/25 Resulted Needle Placeme Dietary Evaluation Review Comments: Continue current POC Expected Outcomes/Goals: intake to meet 75% estimated needs fu 3-5 days CC Plasma Assessment Blood Product Administration S: 1040 Date of Service: Jan 06, 2025 Billing Provider: MIREILLE LEVINE MD Common Visit Codes: [id number] INP/OBS CARE(HIGH) RONNY RIDLEY Jan 06, 2025 17:54 MIREILLE LEVINE MD Jan 08, 2025 21:30
[2025-01-07] VITALS (7 sets, daily range): BP systolic 120–144; BP diastolic 67–86; PULSE 54–96; RESP 18–20; TEMP 97.8–99.1; O2SAT 98–100
[2025-01-07 06:11] LABS: Hemoglobin 9.0 g/dL (13.5-17.5); Mean Corpuscular Hemoglobin 21.4 pg (28.0-32.0)
[2025-01-07 06:15] LABS: Hematocrit 28.6 % (41.0-53.0); Mean Corpuscular Volume 68.4 fL (80.0-100.0)
[2025-01-07 06:28] LABS: Chloride 102 mmol/L (98-107); Potassium 4.1 mmol/L (3.5-5.1); Sodium 138 mmol/L (136-145)
[2025-01-07 06:29] LABS: Anion Gap 11 (5-15); Carbon Dioxide 25 mmol/L (20-31)
[2025-01-07 06:34] LABS: BUN/Creatinine Ratio 12.9 (10.0-20.0); Blood Urea Nitrogen 12 mg/dL (9-23); Glucose 102 mg/dL (74-106)
[2025-01-07 06:35] LABS: Calcium 10.7 mg/dL (8.7-10.4)
[2025-01-07 08:33] LABS: Total Cells Counted 100.0 (100)
[2025-01-07 08:34] LABS: Anisocytosis Moderate
[2025-01-07 08:35] LABS: Stomatocytes Few; Tear Drop Cells FEW
[2025-01-07] MEDS: IRON SUCROSE COMPLEX 110 ML IV SCH (12:20)
--- NOTE | 2025-01-07 13:06 | DVHINCON2 ---
Date of service: Jan 07, 2025 Family History: Patient reports no known family medical history. Allergies: Coded Allergies: Penicillins (Verified Allergy, Unknown, 07/10/24) Shellfish Allergy (Verified Allergy, Unknown, 12/16/24) Home Meds Active Scripts Cyclobenzaprine HCl (Cyclobenzaprine Hydrochlo) 10 Mg Tab, 10 MG PO HS for 5 Days, #10 TAB 0 Refills Prov:DYLON CELIS MD 07/12/24 Psyllium (Metamucil) 0.36 Gm Cap, 0.36 GM PO BID for 30 Days, #60 CAP 0 Refills Prov:DYLON CELIS MD 07/12/24 Lactulose (Lactulose) 10 Gm/15 Ml Arlene, 10 GM PO DAILY for 14 Days, #236 ML 0 Refills Prov:DYLON CELIS MD 07/12/24 Current Medications Current Medications Medications (Trade) Dose Ordered Sig/Aden Route PRN Reason Start Time Stop Time Status Last Admin Iron Sucrose 110 ml @ 110 mls/hr DAILY@1200 IV 01/07/25 12:00 01/11/25 12:59 01/07/25 12:20 Vital Signs Vital Signs Date Time Temp Pulse Resp B/P (MAP) Pulse Ox O2 Delivery O2 Flow Rate FiO2 01/07/25 08:56 98.2 96 20 134/85 (101) 98 98.2 01/07/25 08:00 Room Air* 0 21 Labs/Diagnostic Data Labs Test 01/07/25 04:48 01/05/25 05:18 01/03/25 06:19 01/01/25 18:55 Range/Units White Blood Count 10.4 # 4.4-10.8 10^3/uL Red Blood Count 4.18 L 4.5-5.90 10^6/uL Hemoglobin 9.0 #L 13.5-17.5 g/dL Hematocrit 28.6 #L 41.0-53.0 % Mean Corpuscular Volume 68.4 L 80.0-100.0 fL Mean Corpuscular Hemoglobin 21.4 L 28.0-32.0 pg Mean Corpuscular Hemoglobin Concent 31.3 L 32.0-36.0 g/dL Red Cell Distribution Width 31.0 H 11.8-14.3 % Platelet Count 546 H 140-450 10^3/uL Mean Platelet Volume 8.7 6.9-10.8 fL Neutrophils (%) (Auto) 37.0-80.0 % Lymphocytes (%) (Auto) 10.0-50.0 % Monocytes (%) (Auto) 0.0-12.0 % Basophils (%) (Auto) 0.0-2.0 % Neutrophils # (Auto) 1.6-8.6 10 ^3/uL Lymphocytes # (Auto) 0.4-5.4 10 ^3/uL Monocytes # (Auto) 0-1.3 10 ^3/uL Differential Total Cells Counted 100.0 100 Neutrophils % (Manual) 83 H 37.0-80.0 Band Neutrophils % (Manual) 0 Lymphocytes % (Manual) 7 L 10.0-50.0 Monocytes % (Manual) 10 0-12 Eosinophils % (Manual) 0 0-7 Basophils % (Manual) 0 0.0-2.0 Metamyelocytes % (manual) 0 Myelocytes % (Manual) 0 Promyelocytes % (Manual) 0 Blast Cells % (Manual) 0 Reactive Lymphocytes 0 Platelet Estimate Increased Hypochromasia (manual) Moderate Poikilocytosis (manual) Slight Anisocytosis (manual) Moderate Microcytosis Moderate Tear Drop Cells Few Stomatocytes Few Sodium Level 138 136-145 mmol/L Potassium Level 4.1 3.5-5.1 mmol/L Chloride Level 102 98-107 mmol/L Carbon Dioxide Level 25 20-31 mmol/L Anion Gap 11 5-15 Blood Urea Nitrogen 12 9-23 mg/dL Creatinine 0.93 0.700-1.30 mg/dL Glomerular Filtration Rate Calc 103 >90 mL/min BUN/Creatinine Ratio 12.9 10.0-20.0 Serum Glucose 102 74-106 mg/dL Calcium Level 10.7 H 8.7-10.4 mg/dL Eosinophils (%) (Auto) 2.2 0.0-7.0 % Eosinophils # (Auto) 0.1 0-0.8 10 ^3/uL Basophils # (Auto) 0.1 0-0.2 10 ^3/uL Nucleated Red Blood Cells 0.1 % Clumped Platelets Few Tumor Marker Alpha Fetoprotein 3.9 0.0-6.9 ng/mL Carcinoembryonic Antigen 1.43 <=5.0 ng/mL Large Platelets Few Target Cells Few Test 01/01/25 05:56 12/31/24 13:29 12/31/24 13:24 12/31/24 04:31 Range/Units Giant Platelets Few Schistocytes Few Miscellaneous Referred Test (Rm Tmp Sent to [facility] Haptoglobin 125 23-355 mg/dL Anti-Nuclear Antibody Screen Negative Negative Ovalocytes Few Total Bilirubin 1.1 H 0.2-1.0 mg/dL Aspartate Amino Transferase (AST) 10 L 13-40 U/L Alanine Aminotransferase (ALT) < 9 7-40 U/L Alkaline Phosphatase 43 L 46-116 U/L Total Protein 6.7 5.7-8.2 g/dL Albumin 4.3 3.2-4.8 g/dL Test 12/30/24 18:47 12/30/24 15:10 Range/Units Urine Color Light-yellow Yellow Urine Clarity Clear Clear Urine pH 5.5 5.0-9.0 Urine Specific [place] 1.012 1.001-1.035 Urine Protein Negative Negative Urine Ketones Trace Negative Urine Blood Negative Negative /uL Urine Nitrite Negative Negative Urine Bilirubin Negative Negative Urine Urobilinogen Normal Negative mg/dL Urine Leukocyte Esterase Negative Negative /uL Urine RBC None seen 0 - 3 /hpf Urine Microscopic WBC < 1 0-3 /HPF Urine Squamous Epithelial Cells None seen <5 /hpf Urine Bacteria None seen None Seen /hpf Urine Mucus Few None Seen Urine Glucose Normal Normal mg/dL Prothrombin Time 11.3 9.3-11.8 sec Prothrombin Time INR 1.07 0.9-1.15 Activated Partial Thromboplast Time 23.3 L 24.5-34.5 SEC Assessment patient with history of bleeding from hemorrhoids which has now subsided. He wishes to recover from the cryoablation of the kidney tumor done yesterday and wants to come to see me as outpatient to discuss operation form his hemorrhoids Plan discussed with: Patient BHARATH GARAY MD Jan 07, 2025 13:06
--- NOTE | 2025-01-07 13:30 | DVHPNRES ---
Progress Note Date Seen: Jan 07, 2025 Resident Creating Document: RONNY RIDLEY RESIDENT Medical Necessity Reason Pt with a Central, PICC or Fol: No Subjective Review of Systems The patient is a 44-year-old male with past medical history of hyperlipidemia and hemorrhoids who presented to [facility] ED with complaint of rectal bleeding. Patient reports symptoms progressively get worse with shortness of breath and weakness, found by his son outside his yard unconscious with no significant head trauma. Patient reports ongoing bleeding since 2018 in which he was diagnosed with hemorrhoids and has had intermittent episodes with one being x 5 days ago. Patient reports being seen for same complaint back in June 2024, was seen at the ED and found to have low HGB of 5.0 and had blood transfusion. Patient is seen at bedside. Patient is alert x3, states he feeling better than yesterday, and still has pain in the left flank but is maintained with [place] q.4. IV iron and 1 unit of blood was given, and Today hemoglobin is 9.0. Patient did not have a bowel movement and is on clear liquid diet. Surgery consulted and recommended Patient follow up for Hemorrhoid surgery out patient. Possible discharge tomorrow. Objective vital signs Vital Sign Date Time Temp Pulse Resp B/P (MAP) Pulse Ox O2 Delivery O2 Flow Rate FiO2 01/07/25 08:56 98.2 96 20 134/85 (101) 98 98.2 01/07/25 08:00 Room Air* 0 21 Total Intake and Output 01/06/25 01/06/25 01/07/25 15:00 23:00 07:00 Intake Total 600 ml 0 ml Output Total 280 ml 201 ml Balance -280 ml 399 ml 0 ml medications Current Medications Medications Dose Ordered Sig/Aden Route Start Time Stop Time Status Last Admin Dose Admin Pantoprazole Sodium 40 mg DAILY IV 12/31/24 10:00 01/07/25 09:58 40 MG Acetaminophen/ Hydrocodone Bitart 1 tab Q4HP PRN PO 12/30/24 16:45 01/07/25 09:58 1 TAB Ondansetron HCl 4 mg Q4HP PRN IV 12/30/24 16:45 01/06/25 13:13 4 MG Docusate Sodium 100 mg BIDPRN PRN PO 12/30/24 16:45 Acetaminophen 650 mg Q6HP PRN PO 12/30/24 16:45 Polyethylene Glycol 17 gm DAILY PO 01/01/25 10:00 01/07/25 09:58 17 GM Iron Sucrose 110 ml @ 110 mls/hr DAILY@1200 IV 01/07/25 12:00 01/11/25 12:59 01/07/25 12:20 110 MLS/HR Examination General: Patient alert and oriented in person, place and time. Patient following commands. HEENT: Normocephalic, atraumatic, moist mucous membranes Respiratory/pulmonary: Clear lungs bilaterally, vesicular murmurs present in almost all lung brunner, no associated crackles or wheezes. Cardiovascular: Normal heart sounds S1 and S2 with no associated murmurs Abdomen: Abdomen nondistended, there is no pain to palpation in any of the abdominal quadrants, no palpable masses. Extremities: There is no peripheral edema present at the lower extremities. Peripheral Pulses: 3+ Radial (R). 3+ Radial (L). 3+ Dorsalis pedis (R). 3+ Dorsalis pedis(L) Skin: No rashes or pruritus, there is no sacral edema present at this time. Neurological: Intact cranial nerves with no focal neurologic deficits laboratory and microbiology Laboratory Tests 01/07/25 04:48 Test 01/07/25 04:48 Range/Units Serum Glucose 102 74-106 mg/dL Problem List/Assessment/Plan Problem List/Assessment/Plan #Symptomatic anemia due to blood loss -Hg is 9.0 today, monitor labs -3 units of blood transfusion given, and 1 unit of blood given and IV Iron. 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 Moderate amount of fecal material within the colon. - Consulted Urology, recommended CT renal mass protocol in 3 months. - Renal mass biopsy and cryoablation done, and 6mg IV morphine was given yesterday. - GI was consulted and recommended to Check tumor markers, and Continue supportive care, repeat liver imaging in 6-8 weeks to see if there was increase in size of the liver lesions and possible do a mage guided liver biopsy - CEA is 1.43 - AFP:3.9 #Constipation - Miralax continued, docusate given - MRI abdomen/ Pelvis done shows Examination is markedly degraded by motion. #Polysubstance use disorder -Counseled on alcohol, and marijuana use cessation for 23 minutes including 10 minutes for tobacco use cessation DVT PPX: Ambulatory GI PPX: Protonix Diet: clear liquid diet Goals of care discussed with the patient for more than 21 minutes: Full code status Case discussed with Dr. Levine Plan discussed with: Patient Dietary Evaluation Review Comments: Continue current POC Expected Outcomes/Goals: intake to meet 75% estimated needs fu 3-5 days CC Plasma Assessment Blood Product Administration S: 1040 Date of Service: Jan 07, 2025 Billing Provider: MIREILLE LEVINE MD Common Visit Codes: [id number] INP/OBS CARE(HIGH) RONNY RIDLEY RESIDENT Jan 07, 2025 13:30 MIREILLE LEVINE MD Jan 08, 2025 21:57
--- NOTE | 2025-01-07 22:58 | DVHPN2 ---
Progress Note - Dictate Date Seen: Jan 07, 2025 Medical Necessity Reason Pt with a Central, PICC or Fol: No Subjective Patient is seen at bedside, feeling better and abdominal pain has improved S/P ablation of his renal mass Records reviewed from [facility] Patient had a colonoscopy in August of [address] King It had shown large bleeding hemorrhoids otherwise was completely normal examination vital signs Vital Sign Date Time Temp Pulse Resp B/P (MAP) Pulse Ox O2 Delivery O2 Flow Rate FiO2 01/07/25 21:00 97.8 69 20 137/67 (90) 100 97.8 01/07/25 20:00 Room Air* 0 21 Total Intake and Output 01/06/25 01/06/25 01/07/25 15:00 23:00 07:00 Intake Total 600 ml 0 ml Output Total 280 ml 201 ml Balance -280 ml 399 ml 0 ml medications Current Medications Medications Dose Ordered Sig/Aden Route Start Time Stop Time Status Last Admin Dose Admin Pantoprazole Sodium 40 mg DAILY IV 12/31/24 10:00 01/07/25 09:58 40 MG Acetaminophen/ Hydrocodone Bitart 1 tab Q4HP PRN PO 12/30/24 16:45 01/07/25 22:53 1 TAB Ondansetron HCl 4 mg Q4HP PRN IV 12/30/24 16:45 01/06/25 13:13 4 MG Docusate Sodium 100 mg BIDPRN PRN PO 12/30/24 16:45 Acetaminophen 650 mg Q6HP PRN PO 12/30/24 16:45 Polyethylene Glycol 17 gm DAILY PO 01/01/25 10:00 01/07/25 09:58 17 GM Iron Sucrose 110 ml @ 110 mls/hr DAILY@1200 IV 01/07/25 12:00 01/11/25 12:59 01/07/25 12:20 110 MLS/HR objective General Appearance: Alert, Oriented X3, Cooperative, No acute distress HEENT: Atraumatic, PERRLA, EOMI, Mucous membr. moist/pink Respiratory: Normal air movement Cardiovascular: Regular rate, Normal S1, Normal S2, No murmurs Abdominal: Normal bowel sounds, Soft, No tenderness, No hepatospenomegaly, No masses Extremities: No clubbing, No cyanosis, No edema, Normal pulses, No tenderness/swelling Skin: No rashes, No breakdown, No significant lesion Neuro: Normal speech, Normal tone, Sensation intact, Cranial nerves 3-12 NL, Reflexes 2+, Other (Generalized weakness) Psych/Mental Status: Mental status NL, Mood NL laboratory and microbiology Laboratory Tests 01/07/25 04:48 Test 01/07/25 04:48 Range/Units Serum Glucose 102 74-106 mg/dL Problems(with codes): (1) Hemorrhoids, internal (2) Liver lesion (3) Renal mass (4) Symptomatic anemia (5) Gastrointestinal hemorrhage, unspecified (6) Rectal bleeding (7) Generalized weakness Prognosis Plan Increase fluid and fiber Stool softeners Local anorectal hemorrhoidal care Elective hemorrhoidectomy was the patient has recovered from his current illness Once again thank you for allowing me to participate in the care of this patient Dietary Evaluation Review Comments: Continue current POC Expected Outcomes/Goals: intake to meet 75% estimated needs fu 3-5 days Plan discussed with: Patient CC Plasma Assessment Blood Product Administration S: 1040 ROSAURA DOWNING MD Jan 07, 2025 22:58
[2025-01-08] VITALS (8 sets, daily range): BP systolic 112–151; BP diastolic 66–78; PULSE 54–87; RESP 16–22; TEMP 98.2–99.3; O2SAT 96–100
[2025-01-08 06:09] LABS: Hematocrit 27.0 % (41.0-53.0); Hemoglobin 8.5 g/dL (13.5-17.5)
[2025-01-08] MEDS: SENNA 8.6 MG TAB PO ONE (10:18)
[2025-01-08] MEDS: diphenhdrAMINE HCL 50 MG/1 ML VL IV ONE (13:55)
[2025-01-08] MEDS ORDERED: IOHEXOL 350 MG/ML 100ML IJ ONE (14:16)
--- NOTE | 2025-01-08 15:34 | DVH ---
Indication: per rectal bleeding Technique: CT axial images of the chest, abdomen and pelvis are obtained with intravenous contrast. Coronal and sagittal reformats were obtained. Radiation Dose Information: CTDI volume is 6.8 mGy. Dose-length product is 545 mGy*cm Comparison: CT CT AB PEL WITH IV CON ONLY on DOS: 12/31/24 FINDINGS: The trachea is patent. No pneumothorax. No pulmonary airspace consolidation. Heart normal in size. No supraclavicular or axillary lymphadenopathy. Adrenal glands, spleen, pancreas and liver unremarkable. No CT evidence for cholelithiasis. The right right kidney is unremarkable.m left renal ablation bed measuring 5.1 x 4.0 cm. Small amoun t of perinephric edema. Stomach partially distended. Small bowel loops are normal in caliber. Moderate volume stool within th e colon. Small amount of fluid in the left paracolic gutter. Abdominal aorta normal in caliber. Bladder is partially distended. Trace free pelvic fluid. No inguin al lymphadenopathy. Diffuse osseous sclerotic changes. Severe lumbar degenerative disc disease L5-S1. IMPRESSION: Status post cryoablation left renal midpole with expected post treatment changes as described. Recomm end follow-up CT to ensure resolution and exclude any type of residual enhancement. Moderate volume stool within the colon. Small amount of fluid in the left paracolic gutter and pelvis. Diffuse osseous sclerosis which can be secondary to anemia, metabolic disorders, marrow replacement, malignancy Other findings as described.
--- NOTE | 2025-01-08 16:40 | DVHPNRES ---
Progress Note Date Seen: Jan 08, 2025 Resident Creating Document: RONNY RIDLEY RESIDENT Medical Necessity Reason Pt with a Central, PICC or Fol: No Subjective Review of Systems The patient is a 44-year-old male with past medical history of hyperlipidemia and hemorrhoids who presented to [facility] ED with complaint of rectal bleeding. Patient reports symptoms progressively get worse with shortness of breath and weakness, found by his son outside his yard unconscious with no significant head trauma. Patient reports ongoing bleeding since 2018 in which he was diagnosed with hemorrhoids and has had intermittent episodes with one being x 5 days ago. Patient reports being seen for same complaint back in June 2024, was seen at the ED and found to have low HGB of 5.0 and had blood transfusion. Patient seen at bedside. Patient alert x3, and still complains of pain in left lower back is managed with pain medication. Repeat CT with IV contrast was done today and shows Status post cryoablation left renal midpole with expected post treatment changes as described. Recommend follow-up CT to ensure resolution and exclude any type of residual enhancement, Moderate volume stool within the colon, Small amount of fluid in the left paracolic gutter and pelvis, Diffuse osseous sclerosis which can be secondary to anemia, metabolic disorders, marrow replacement, malignancy. GI recommended to Increase fluid and fiber, give Stool softeners and Local anorectal hemorrhoidal care. Elective hemorrhoidectomy was the patient has recovered from his current illness. Objective vital signs Vital Sign Date Time Temp Pulse Resp B/P (MAP) Pulse Ox O2 Delivery O2 Flow Rate FiO2 01/08/25 12:38 98.9 87 18 127/78 (94) 99 98.9 01/08/25 08:00 Room Air* 0 21 Total Intake and Output 01/07/25 01/07/25 01/08/25 15:00 23:00 07:00 Intake Total 110 ml 1780 ml 300 ml Output Total 700 ml Balance 110 ml 1080 ml 300 ml medications Current Medications Medications Dose Ordered Sig/Aden Route Start Time Stop Time Status Last Admin Dose Admin Pantoprazole Sodium 40 mg DAILY IV 12/31/24 10:00 01/08/25 10:18 40 MG Acetaminophen/ Hydrocodone Bitart 1 tab Q4HP PRN PO 12/30/24 16:45 01/08/25 10:21 1 TAB Ondansetron HCl 4 mg Q4HP PRN IV 12/30/24 16:45 01/06/25 13:13 4 MG Acetaminophen 650 mg Q6HP PRN PO 12/30/24 16:45 Polyethylene Glycol 17 gm DAILY PO 01/01/25 10:00 01/08/25 09:05 17 GM Iron Sucrose 110 ml @ 110 mls/hr DAILY@1200 IV 01/07/25 12:00 01/11/25 12:59 01/08/25 11:58 110 MLS/HR Sennosides 8.6 mg HS PO 01/08/25 22:00 laboratory and microbiology Laboratory Tests 01/08/25 04:56 01/07/25 04:48 Test 01/07/25 04:48 Range/Units Serum Glucose 102 74-106 mg/dL Problem List/Assessment/Plan Problem List/Assessment/Plan #Symptomatic anemia due to blood loss - Hg is 8.5 today, monitor labs - 3 units of blood transfusion given, and 1 unit of blood given and IV Iron. 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 Moderate amount of fecal material within the colon. - Consulted Urology, recommended CT renal mass protocol in 3 months. - Renal mass biopsy and cryoablation done, and pain management ongoing - GI was consulted and recommended to Increase fluid and fiber , give Stool softeners, Local anorectal hemorrhoidal care and Elective hemorrhoidectomy was the patient has recovered from his current illness - Repeat CT chest/Abdomen/Pelvis: Status post cryoablation left renal midpole with expected post treatment changes as described. Recommend follow-up CT to ensure resolution and exclude any type of residual enhancement, Moderate volume stool within the colon, Small amount of fluid in the left paracolic gutter and pelvis, Diffuse osseous sclerosis which can be secondary to anemia, metabolic disorders, marrow replacement, malignancy. - CEA is 1.43 - AFP:3.9 #Constipation - Miralax continued, and senna given today - MRI abdomen/ Pelvis done shows Examination is markedly degraded by motion. #Polysubstance use disorder - Counseled on alcohol, and marijuana use cessation for 23 minutes including 10 minutes for tobacco use cessation DVT PPX: Ambulatory GI PPX: Protonix Diet: clear liquid diet Goals of care discussed with the patient for more than 21 minutes: Full code status Case discussed with Dr. Levine Plan discussed with: Patient Dietary Evaluation Review Comments: Continue current POC Expected Outcomes/Goals: intake to meet 75% estimated needs fu 3-5 days CC Plasma Assessment Blood Product Administration S: 1040 Date of Service: Jan 08, 2025 Billing Provider: MIREILLE LEVINE MD Common Visit Codes: [id number] INP/OBS CARE(HIGH) RONNY RIDLEY RESIDENT Jan 08, 2025 16:40 MIREILLE LEVINE MD Jan 08, 2025 22:07
--- NOTE | 2025-01-08 17:32 | DVHPN2 ---
Progress Note - Dictate Date Seen: Jan 08, 2025 Medical Necessity Reason Pt with a Central, PICC or Fol: No Subjective Patient ambulated today, no bowel movement, feeling better and abdominal pain has improved S/P ablation of his renal mass Records reviewed from [facility] Patient had a colonoscopy in August of [address] Floyd It had shown large bleeding hemorrhoids otherwise was completely normal examination vital signs Vital Sign Date Time Temp Pulse Resp B/P (MAP) Pulse Ox O2 Delivery O2 Flow Rate FiO2 01/08/25 16:41 98.6 87 18 132/70 (90) 100 98.6 01/08/25 08:00 Room Air* 0 21 Total Intake and Output 01/07/25 01/07/25 01/08/25 15:00 23:00 07:00 Intake Total 110 ml 1780 ml 300 ml Output Total 700 ml Balance 110 ml 1080 ml 300 ml medications Current Medications Medications Dose Ordered Sig/Aden Route Start Time Stop Time Status Last Admin Dose Admin Pantoprazole Sodium 40 mg DAILY IV 12/31/24 10:00 01/08/25 10:18 40 MG Acetaminophen/ Hydrocodone Bitart 1 tab Q4HP PRN PO 12/30/24 16:45 01/08/25 10:21 1 TAB Ondansetron HCl 4 mg Q4HP PRN IV 12/30/24 16:45 01/06/25 13:13 4 MG Acetaminophen 650 mg Q6HP PRN PO 12/30/24 16:45 Polyethylene Glycol 17 gm DAILY PO 01/01/25 10:00 01/08/25 09:05 17 GM Iron Sucrose 110 ml @ 110 mls/hr DAILY@1200 IV 01/07/25 12:00 01/11/25 12:59 01/08/25 11:58 110 MLS/HR Sennosides 8.6 mg HS PO 01/08/25 22:00 objective General Appearance: Alert, Oriented X3, Cooperative, No acute distress HEENT: Atraumatic, PERRLA, EOMI, Mucous membr. moist/pink Respiratory: Normal air movement Cardiovascular: Regular rate, Normal S1, Normal S2, No murmurs Abdominal: Normal bowel sounds, Soft, No tenderness, No hepatospenomegaly, No masses Extremities: No clubbing, No cyanosis, No edema, Normal pulses, No tenderness/swelling Skin: No rashes, No breakdown, No significant lesion Neuro: Normal speech, Normal tone, Sensation intact, Cranial nerves 3-12 NL, Reflexes 2+, Other (Generalized weakness) Psych/Mental Status: Mental status NL, Mood NL laboratory and microbiology Laboratory Tests 01/08/25 04:56 01/07/25 04:48 Test 01/07/25 04:48 Range/Units Serum Glucose 102 74-106 mg/dL Problems(with codes): (1) Hemorrhoids, internal (2) Liver lesion (3) Renal mass (4) Symptomatic anemia (5) Gastrointestinal hemorrhage, unspecified (6) Rectal bleeding (7) Generalized weakness Prognosis Plan Increase fluid and fiber Stool softeners Local anorectal hemorrhoidal care Elective hemorrhoidectomy was the patient has recovered from his current illness Once again thank you for allowing me to participate in the care of this patient Dietary Evaluation Review Comments: Continue current POC Expected Outcomes/Goals: intake to meet 75% estimated needs fu 3-5 days Plan discussed with: Patient CC Plasma Assessment Blood Product Administration S: 1040 ROSAURA DOWNING MD Jan 08, 2025 17:32
[2025-01-08] MEDS: SENNA 8.6 MG TAB PO SCH (21:07)
[2025-01-09 01:00] VITALS: BP 138/64; PULSE 85; RESP 22; TEMP 97.9; O2SAT 100
[2025-01-09 05:00] VITALS: BP 119/83; PULSE 80; RESP 22; TEMP 98.3; O2SAT 100
[2025-01-09 06:04] LABS: Hematocrit 27.7 % (41.0-53.0); Hemoglobin 8.8 g/dL (13.5-17.5); Mean Corpuscular Hemoglobin 21.7 pg (28.0-32.0); Mean Corpuscular Volume 68.1 fL (80.0-100.0)
[2025-01-09] MEDS: ACETAMINOPHEN 325 MG TAB PO PRN (06:41)
[2025-01-09 06:45] LABS: Total Cells Counted 100.0 (100)
[2025-01-09 06:46] LABS: Anisocytosis Moderate
[2025-01-09 08:00] VITALS: PULSE 68; RESP 15; O2SAT 99
[2025-01-09 09:00] VITALS: BP 110/64; PULSE 68; RESP 15; TEMP 98.9; O2SAT 99
--- NOTE | 2025-01-09 10:51 | DVHDSRES ---
Discharge Summary Date of Admission Resident Creating Document: RONNY RIDLEY Dec 30, 2024 at 16:40 Date of Discharge: Jan 09, 2025 Admitting Diagnosis #Symptomatic anemia due to blood loss Labs/Diagnostic Data: Laboratory Results Test 01/09/25 04:55 01/07/25 04:48 01/05/25 05:18 01/03/25 06:19 White Blood Count 10.2 10^3/uL (4.4-10.8) Red Blood Count 4.06 10^6/uL (4.5-5.90) Hemoglobin 8.8 g/dL (13.5-17.5) Hematocrit 27.7 % (41.0-53.0) Mean Corpuscular Volume 68.1 fL (80.0-100.0) Mean Corpuscular Hemoglobin 21.7 pg (28.0-32.0) Mean Corpuscular Hemoglobin Concent 31.8 g/dL (32.0-36.0) Red Cell Distribution Width 31.8 % (11.8-14.3) Platelet Count 545 10^3/uL (140-450) Mean Platelet Volume 8.5 fL (6.9-10.8) Neutrophils (%) (Auto) % (37.0-80.0) Lymphocytes (%) (Auto) % (10.0-50.0) Monocytes (%) (Auto) % (0.0-12.0) Basophils (%) (Auto) % (0.0-2.0) Neutrophils # (Auto) 10 ^3/uL (1.6-8.6) Lymphocytes # (Auto) 10 ^3/uL (0.4-5.4) Monocytes # (Auto) 10 ^3/uL (0-1.3) Differential Total Cells Counted 100.0 (100) Neutrophils % (Manual) 74 (37.0-80.0) Band Neutrophils % (Manual) 0 Lymphocytes % (Manual) 16 (10.0-50.0) Monocytes % (Manual) 9 (0-12) Eosinophils % (Manual) 1 (0-7) Basophils % (Manual) 0 (0.0-2.0) Metamyelocytes % (manual) 0 Myelocytes % (Manual) 0 Promyelocytes % (Manual) 0 Blast Cells % (Manual) 0 Reactive Lymphocytes 0 Platelet Estimate Increased Hypochromasia (manual) Moderate Poikilocytosis (manual) Slig Anisocytosis (manual) Moderate Microcytosis Moderate Target Cells Few Tear Drop Cells Few Stomatocytes Few Sodium Level 138 mmol/L (136-145) Potassium Level 4.1 mmol/L (3.5-5.1) Chloride Level 102 mmol/L (98-107) Carbon Dioxide Level 25 mmol/L (20-31) Anion Gap 11 (5-15) Blood Urea Nitrogen 12 mg/dL (9-23) Creatinine 0.93 mg/dL (0.700-1.30) Glomerular Filtration Rate Calc 103 mL/min (>90) BUN/Creatinine Ratio 12.9 (10.0-20.0) Serum Glucose 102 mg/dL (74-106) Calcium Level 10.7 mg/dL (8.7-10.4) Eosinophils (%) (Auto) 2.2 % (0.0-7.0) Eosinophils # (Auto) 0.1 10 ^3/uL (0-0.8) Basophils # (Auto) 0.1 10 ^3/uL (0-0.2) Nucleated Red Blood Cells 0.1 % Clumped Platelets Few Tumor Marker Alpha Fetoprotein 3.9 ng/mL (0.0-6.9) Carcinoembryonic Antigen 1.43 ng/mL (<=5.0) Test 01/01/25 18:55 01/01/25 05:56 12/31/24 13:29 12/31/24 13:24 Large Platelets Few Giant Platelets Few Schistocytes Few Miscellaneous Referred Test ( Tmp Sent to [facility] Haptoglobin 125 mg/dL (23-355) Anti-Nuclear Antibody Screen Negative (Negative) Test 12/31/24 04:31 12/30/24 18:47 12/30/24 15:10 Ovalocytes Few Total Bilirubin 1.1 mg/dL (0.2-1.0) Aspartate Amino Transferase (AST) 10 U/L (13-40) Alanine Aminotransferase (ALT) < 9 U/L (7-40) Alkaline Phosphatase 43 U/L (46-116) Total Protein 6.7 g/dL (5.7-8.2) Albumin 4.3 g/dL (3.2-4.8) Urine Color Light-yellow (Yellow) Urine Clarity Clear (Clear) Urine pH 5.5 (5.0-9.0) Urine Specific [place] 1.012 (1.001-1.035) Urine Protein Negative (Negative) Urine Ketones Trace (Negative) Urine Blood Negative /uL (Negative) Urine Nitrite Negative (Negative) Urine Bilirubin Negative (Negative) Urine Urobilinogen Normal mg/dL (Negative) Urine Leukocyte Esterase Negative /uL (Negative) Urine RBC None seen /hpf (0 - 3) Urine Microscopic WBC < 1 /HPF (0-3) Urine Squamous Epithelial Cells None seen /hpf (<5) Urine Bacteria None seen /hpf (None Seen) Urine Mucus Few (None Seen) Urine Glucose Normal mg/dL (Normal) Prothrombin Time 11.3 sec (9.3-11.8) Prothrombin Time INR 1.07 (0.9-1.15) Activated Partial Thromboplast Time 23.3 SEC (24.5-34.5) Other Laboratory Tests 01/09/25 04:55 01/07/25 04:48 Brief Hx & Hospital Course: The patient is a 44-year-old male with past medical history of hyperlipidemia and hemorrhoid who presented to [facility] ED with complaint of rectal bleeding..Patient reports symptoms progressively get worse with shortness of breath and weakness, found by his son outside his yard unconscious with no significant head trauma. Patient reports ongoing bleeding since 2018 in which he was diagnosed with hemorrhoids and has had intermittent episodes with one being x 4 days ago. Patient reports being seen for same complaint back in June 2024, was seen at the ED and found to have low HGB of 5.0 and had blood transfusion. Brief hospital course: Patient came to the ED for symptomatic anemia and rectal bleeding due to hemorrhoids, with hemoglobin of 4.6 initially 3 nits of blood transfusion was given with pain control management. additionally 1 unit of blood and IV iron was also given, with monitoring of H&H. today the hemoglobin was 8.8. surgery was consulted and recommended patient to follow-up outpatient for hemorrhoid surgery. CT scan showed 4.4 x 3.1 x 2.9 cm left renal soft tissue density lesion Subtle 1.3 cm area of enhancement over the hepatic dome. Moderate amount of fecal material within the colon. Urology was consulted and recommended CT renal mass protocol in 3 months. Renal mass biopsy and cryoablation was done and the pain management was ongoing. GI was consulted and recommended to increase fluid and fiber, give stool softeners, local anorectal hemorrhoidal care, elective hemorrhoidectomy when the patient has recovered from the current illness. On repeat CT chest/ abdomen/ pelvis showed status post cryoablation left renal midpole with expected post treatment changes as described. Recommend follow-up CT to ensure resolution and exclude any type of residual enhancement, Moderate volume stool within the colon, Small amount of fluid in the left paracolic gutter and pelvis, Diffuse osseous sclerosis which can be secondary to anemia, metabolic disorders, marrow replacement, malignancy. His CEA a is 1.43, AFP 3.9. for constipation MiraLAX was continued and senna given on MRI abdomen pelvis 8 showed examination was degraded by motion. for his polysubstance use disorder he was counseled on alcohol, marijuana use cessation. GI prophylaxis with Protonix was given patient was ambulatory. Patient is stable for discharge and communicated understanding that he has to follow up with discharge Clinic on Monday to discuss biopsy report for further management, and follow up with GI to do elective hemorrhoid surgery outpatient after recovering from his current illness. His hemoglobin at discharge was 8.8. Patient states that he will get insurance after January 24 and that he will follow-up with urology in 3 months. The risks and benefits of following up for further management were discussed with the patient, and he agreed and communicated understanding of his condition. General: Patient alert and oriented in person, place and time. Patient following commands. HEENT: Normocephalic, atraumatic, moist mucous membranes Respiratory/pulmonary: Clear lungs bilaterally, vesicular murmurs present in almost all lung brunner, no associated crackles or wheezes. Cardiovascular: Normal heart sounds S1 and S2 with no associated murmurs Abdomen: Abdomen nondistended, Pain on palpation of left flank, no palpable masses. Extremities: There is no peripheral edema present at the lower extremities. Peripheral Pulses: 3+ Radial (R). 3+ Radial (L). 3+ Dorsalis pedis (R). 3+ Dorsalis pedis(L) Skin: No rashes or pruritus, there is no sacral edema present at this time. Neurological: Intact cranial nerves with no focal neurologic deficits Operations or Procedures ORDERING PHYSICIAN: RAMIREZ SILVA RESIDENT PROCEDURE(s): CAPIV - CT CHEST/AB/PL W CON- IV ONLY REASON: per rectal bleeding ORDER NUMBER(s): [id number], ACCESSION NUMBER(s): [id number] Indication: per rectal bleeding Technique: CT axial images of the chest, abdomen and pelvis are obtained with intravenous contrast. Coronal and sagittal reformats were obtained. Radiation Dose Information: CTDI volume is 6.8 mGy. Dose-length product is 545 mGy*cm Comparison: CT CT AB PEL WITH IV CON ONLY on DOS: 12/31/24 FINDINGS: The trachea is patent. No pneumothorax. No pulmonary airspace consolidation. Heart normal in size. No supraclavicular or axillary lymphadenopathy. Adrenal glands, spleen, pancreas and liver unremarkable. No CT evidence for cholelithiasis. The right right kidney is unremarkable.m left renal ablation bed measuring 5.1 x 4.0 cm. Small amount of perinephric edema. Stomach partially distended. Small bowel loops are normal in caliber. Moderate volume stool within the colon. Small amount of fluid in the left paracolic gutter. Abdominal aorta normal in caliber. Bladder is partially distended. Trace free pelvic fluid. No inguinal lymphadenopathy. Diffuse osseous sclerotic changes. Severe lumbar degenerative disc disease L5- S1. IMPRESSION: Status post cryoablation left renal midpole with expected post treatment changes as described. Recommend follow-up CT to ensure resolution and exclude any type of residual enhancement. Moderate volume stool within the colon. Small amount of fluid in the left paracolic gutter and pelvis. Diffuse osseous sclerosis which can be secondary to anemia, metabolic disorders, marrow replacement, malignancy Other findings as described. CT PAR TISSUE ABLATION HISTORY: CRYOABLATION L RENAL Mass PROCEDURE: Informed consent was previously obtained in clinic. The patient was placed in prone position. Towels were placed on the lower extremities. An initial limited noncontrast US/CT scan of the abdomen was obtained for localization purposes. The entry site was prepped with chlorhexidine which was allowed to dry and draped in the usual sterile fashion. Time out was performed. IV sedation was administered. 1% lidocaine was used for local anesthetic. Under intermittent US/CT guidance, the left kidney mass lesion was accessed with a Temno 17/18 gauge coaxial biopsy needle system, and two core biopsies were obtained. Gelfoam was injected for hemostasis. With US/CT guidance, the lesion was then accessed with 2 Ice Force cryoprobes. The cryoprobes were then connected to the cryoablation machine, and two freeze-thaw cycles were performed, with intermittent CT scans obtained to monitor progress. The probes were removed. Completion CT demonstrated no evidence of immediate complication. DLP = 3436 mGy-cm. SEDATION: Dr. Kandace Elise was personally responsible for the administration of moderate sedation during the procedure performed, including the use of an independent trained observer who had no other duties during the procedure. The drugs utilized were IV fentanyl and versed (see nursing log for details). The total time of supervision by the attending physician was approximately 90 minutes. FINDINGS: 4.2 x 3.1 cm left mid pole renal pole solid enhancing mass is identified. CT images reveal the iceball to encompass the entire region of the mass lesion. IMPRESSION: US/CT-guided biopsy and cryoablation of left mid pole renal pole mass. PLAN: Followup contrast enhanced CT would be reasonable in about 2-3 months to assess for viability or lack thereof. - CT PAR TISSUE ABLATION HISTORY: CRYOABLATION L RENAL Mass PROCEDURE: Informed consent was previously obtained in clinic. The patient was placed in prone position. Towels were placed on the lower extremities. An initial limited noncontrast US/CT scan of the abdomen was obtained for localization purposes. The entry site was prepped with chlorhexidine which was allowed to dry and draped in the usual sterile fashion. Time out was performed. IV sedation was administered. 1% lidocaine was used for local anesthetic. Under intermittent US/CT guidance, the left kidney mass lesion was accessed with a Temno 17/18 gauge coaxial biopsy needle system, and two core biopsies were obtained. Gelfoam was injected for hemostasis. With US/CT guidance, the lesion was then accessed with 2 Ice Force cryoprobes. The cryoprobes were then connected to the cryoablation machine, and two freeze-thaw cycles were performed, with intermittent CT scans obtained to monitor progress. The probes were removed. Completion CT demonstrated no evidence of immediate complication. DLP = 3436 mGy-cm. SEDATION: Dr. Kandace Elise was personally responsible for the administration of moderate sedation during the procedure performed, including the use of an independent trained observer who had no other duties during the procedure. The drugs utilized were IV fentanyl and versed (see nursing log for details). The total time of supervision by the attending physician was approximately 90 minutes. FINDINGS: 4.2 x 3.1 cm left mid pole renal pole solid enhancing mass is identified. CT images reveal the iceball to encompass the entire region of the mass lesion. IMPRESSION: US/CT-guided biopsy and cryoablation of left mid pole renal pole mass. PLAN: Followup contrast enhanced CT would be reasonable in about 2-3 months to assess for viability or lack thereof. RING PHYSICIAN: FAHAD DEAN NP PROCEDURE(s): MRIABDPW/W - MRI ABD & PLEVIS W/WO CONT REASON: ORDER NUMBER(s): [id number], ACCESSION NUMBER(s): [id number] - PROCEDURE: MRI MRI ABD PLEVIS W/WO CONT Indication: Previous CT demonstrates left renal soft tissue density lesion COMPARISON: 12/31/2024, 07/11/2024, 07/10/2024, ultrasound 07/11/2024 TECHNIQUE: Multiplanar multisequence images of the abdomen and pelvis were obtained with and without contrast. FINDINGS: Adrenal glands, spleen, pancreas unremarkable. No enhancing hepatic lesion. No evidence for cholelithiasis. Normal caliber common bile duct. Left renal T2 dark, T1 intermediate signal lesion measuring 3.4 x 4.0 x 2.8 cm. The contrast enhanced sequences are extremely degraded by motion however there does appear to ileana some increased signal within the lesion on the post-contrast sequences. Right renal cyst measuring 7 mm. The abdominal aorta is normal in caliber. No retroperitoneal lymphadenopathy. Severe degenerative disc disease at L5-S1. Bladder partially distended. No free pelvic fluid. Diffusely decreased T1 signal within the marrow. No inguinal lymphadenopathy. Colonic diverticular disease. IMPRESSION: Examination is markedly degraded by motion. Left renal T2 dark, T1 intermediate signal lesion measuring 4.0 cm. The postcontrast sequences are markedly degraded by motion but there does appear to be some internal enhancing potentially within the lesion raising concern for potential renal mass/neoplasm. Previous ultrasound also demonstrated echogenic appearance to the lesion. Renal mass/ neoplasm remains in the differential. Recommend urology and oncology consultation for further management. Tissue sampling can also be obtained to further evaluate. Patchy T1 decreased signal within the marrow which could be secondary to marrow replacement /anemia, myeloproliferative disorders, lymphoma / leukemia, malignancy. Exam: CT CT AB PEL WITH IV CON ONLY History: Left renal mass Comparison Study: CT abdomen and pelvis without contrast 07/10/2024 TECHNIQUE: Multidetector CT of the abdomen and pelvis with IV contrast. Axial, coronal and sagittal multiplanar reformats were obtained from the axial data set by the technologist. Radiation Dose Information: CT Dose: CTDI volume is 6.88 mGy. Dose-length product is 366.83 mGy*cm FINDINGS: Bibasilar atelectasis. Partially visualized heart is unremarkable. Subtle 1.3 cm area of enhancement of the hepatic dome. Mild hepatomegaly. Mild splenomegaly. Gallbladder, pancreas and adrenal glands are unremarkable. The right kidneys unremarkable. Changed in size from 07/10/2024 4.4 x 3.1 x 2.9 cm posterior lateral interpolar region to lower pole renal lesion which measures soft tissue. No hydronephrosis or renal calculi bilaterally. Urinary bladder is decompressed limiting evaluation. Prostate measures 3.4 x 4.5 by 3.6 cm. Stomach is unremarkable. Small bowel loops unremarkable. Appendix is unremarkable. Large bowel is unremarkable. Moderate amount of fecal material within the colon. No evidence of intraperitoneal free air or free fluid. No evidence of aortic aneurysm or dissection. No Significant lymphadenopathy. The soft tissues are unremarkable. No destructive osseous lesions noted. IMPRESSION: 4.4 x 3.1 x 2.9 cm left renal soft tissue density lesion . Renal protocol CT /MRI is recommended for further evaluation. Subtle 1.3 cm area of enhancement over the hepatic dome. Attention to this area is recommended on subsequent imaging. Moderate amount of fecal material within the colon. 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 Patient was counseled about treatment plan, medications, possible side effects, patientverbalized understanding. All questions were answered to the best of my ability. This discharge took greater then 30 minutes in planning, reviewing documentation, counseling the patient, and discussing with other team members." ASSESSMENT ASSESSMENT Assessment #Symptomatic anemia due to blood loss RONNY RIDLEY RESIDENT Jan 09, 2025 10:51
[2025-01-09 11:11] VITALS: BP 110/64; PULSE 68; RESP 15; TEMP 98.9; O2SAT 99
== END 2025-01-09 11:55 | disposition home or self-care (01) | DRG 660 ==
LOC: ER 14:43 → OVERFLOW 16:40 → TELE-WESTW 12-31 22:10 → WEST WING 01-01 08:53
PROVIDERS: ADMIT Student in an Organized Health Care Education/Training Program; ATTEND Student in an Organized Health Care Education/Training Program
PROC: 30233N1 Transfusion of Nonautologous Red Blood Cells into Peripheral Vein, Percutaneous Approach (ICD-10-PCS; principal; 2024-12-30)
PROC: 0T513ZZ Destruction of Left Kidney, Percutaneous Approach (ICD-10-PCS; 2025-01-06)
PROC: 0TB13ZX Excision of Left Kidney, Percutaneous Approach, Diagnostic (ICD-10-PCS; 2025-01-06)
DX: N28.89 Other specified disorders of kidney and ureter (principal); C78.7 Secondary malignant neoplasm of liver and intrahepatic bile duct; K64.8 Other hemorrhoids; D50.0 Iron deficiency anemia secondary to blood loss (chronic); E78.5 Hyperlipidemia, unspecified; K59.00 Constipation, unspecified; F19.10 Other psychoactive substance abuse, uncomplicated; Z88.0 Allergy status to penicillin; Z91.013 Allergy to seafood
CPT/HCPCS: 10005; 36415; 71260; 72195; 74177; 74181; 76942; 77012; 77013; 80048; 80053; 81001; 82105; 82378; 83010; 85007; 85014; 85018; 85025; 85027; 85610; 85730; 86038; 86850; 86900; 86901; 86920; 96374; 99291; G0378; J1756; J2250; J2405; J2470

== ENCOUNTER 2025-01-26 10:16 | Inpatient (IN) | payer MEDICAID, OTHER ==
[2025-01-26] VITALS (9 sets, daily range): BP systolic 104–127; BP diastolic 42–68; PULSE 65–90; RESP 12–19; TEMP 98.1–99.4; O2SAT 100
[~2025-01-26] VITALS: Ht 180.3 cm; Wt 78.5 kg
--- NOTE | 2025-01-26 11:19 | ED.PDOC ---
History of Present Illness HPI Comments 44-year-old male came to the ER stating that he has been having generalized weakness for many years along with GI bleed per rectum red in color from hemorrhoid that was diagnosed in 2018. His primary care physician had sent him to the ER to get his hemoglobin checked. Denies shortness a breath chest pain. Denies any other symptoms. Chief Complaint: GI Bleed Time Seen by MD: 10:32 Primary Care Provider: NONE Reviewed Notes: Nurses Notes, Medications, Allergies Allergies: Coded Allergies: Penicillins (Verified Allergy, Unknown, 07/10/24) Shellfish Allergy (Verified Allergy, Unknown, 12/16/24) Home Meds Active Scripts Cyclobenzaprine HCl (Cyclobenzaprine Hydrochlo) 10 Mg Tab, 10 MG PO HS for 5 Days, #10 TAB 0 Refills Prov:DYLON CELIS MD 07/12/24 Psyllium (Metamucil) 0.36 Gm Cap, 0.36 GM PO BID for 30 Days, #60 CAP 0 Refills Prov:DYLON CELIS MD 07/12/24 Lactulose (Lactulose) 10 Gm/15 Ml Arlene, 10 GM PO DAILY for 14 Days, #236 ML 0 Refills Prov:DLYON CELIS MD 07/12/24 Information Source: Patient Mode of Arrival: Ambulatory Severity: Moderate Timing: Days Duration: Since onset Past Medical History PAST MEDICAL HISTORY: High Lipids Surgical History: Denies all surgeries Family History Family History: Reviewed,noncontributory to illness, Family hx of DM, Family hx of Cancer, Family hx of HTN Social History Smoker: Non-Smoker Alcohol: Denies ETOH Use Drugs: Marijuana Lives In: Home Constitutional: denies: chills, diaphoresis, fatigue, fever, malaise, sweats, weakness, others EENTM: denies: blurred vision, double vision, ear bleeding, ear discharge, ear drainage, ear pain, ear ringing, eye pain, eye redness, hearing loss, mouth pain, mouth swelling, nasal discharge, nose bleeding, nose congestion, nose pain, photophobia, tearing, throat pain, throat swelling, voice changes, others Respiratory: denies: cough, hemoptysis, orthopnea, SOB at rest, shortness of breath, SOB with excertion, stridor, wheezing, others Cardiovascular: denies: chest pain, dizzy spells, diaphoresis, Dyspnea on exertion, edema, irregular heart beat, left arm pain, lightheadedness, palpitations, PND, syncope, others Gastrointestinal: reports: rectal bleeding; denies: abdomen distended, abdominal pain, blood streaked bowels, constipated, diarrhea, dysphagia, difficulty swallowing, hematemesis, melena, nausea, poor appetite, poor fluid intake, rectal pain, vomiting, others Genitourinary: denies: burning, dysuria, flank pain, frequency, hematuria, incontinence, penile discharge, penile sore, pain, testicle pain, testicle swelling, urgency, others Neurological: denies: dizziness, fainting, headache, left sided numbness, left sided weakness, numbness, paresthesia, pre-existing deficit, right sided numbness, right sided weakness, seizure, speech problems, tingling, tremors, weakness, others Musculoskeletal: denies: back pain, gout, joint pain, joint swelling, muscle pain, muscle stiffness, neck pain, others Integumetry: denies: bruises, change in color, change in hair/nails, dryness, laceration, lesions, lumps, rash, wounds, others Allergic/Immunocompromised: denies: Difficulty Healing, Frequent Infections, Hives, Itching, others Hematologic/Lymphatic: denies: anemia, blood clots, easy bleeding, easy bruising, swollen glands, others Endocrine: denies: excessive hunger, excessive sweating, excessive thirst, excessive urination, flushing, intolerance to cold, intolerance to heat, unexplained weight gain, unexplained weight loss, others Psychiatric: denies: anxiety, bipolar disorder, depression, hopeless, panic disorder, schizophrenia, sleepless, suicidal, others Physical Exam General Appearance: Moderate Distress HEENT: Normal ENT Inspection, Pharynx Normal, TMs Normal Neck: Full Range of Motion, Non-Tender, Normal, Normal Inspection Respiratory: Chest Non-Tender, Lungs Clear, No Accessory Muscle Use, No Respiratory Distress, Normal Breath Sounds Cardiovascular: No Edema, No JVD, No Murmur, No Gallop, Normal Peripheral Pulses, Regular Rate/Rhythm Breast Exam: Deferred Gastrointestinal: No Organomegaly, Non Tender, No Pulsatile Mass, Normal Bowel Sounds, Soft Genitalia: Deferred Pelvic: Deferred Rectal: Deferred Extremities: No calf tenderness, Normal capillary refill, Normal inspection, Normal range of motion, Non-tender, No pedal edema Musculoskeletal : Apperance: Normal Neurologic: Alert, electronic die maker II-XII nml as Tested, No Motor Deficits, Normal Affect, Normal Mood, No Sensory Deficits Cerebellar Function: Normal Reflexes: Normal Skin: Dry, Normal Color, Warm Peripheral Pulses: 3+ Radial (R), 3+ Radial (L) Lymphatic: No Adenopathy Was a procedure done? Was a procedure done?: No Differential Dx Considerations may include: Anemia Electrolyte imbalance X-Ray, Labs, Meds, VS Vital Signs Date Time Temp Pulse Resp B/P (MAP) Pulse Ox O2 Delivery O2 Flow Rate FiO2 01/26/25 11:40 96 16 100 Room Air 01/26/25 11:40 98.3 96 16 122/61 (81) 100 98.3 01/26/25 10:17 97.6 102 16 128/71 100 97.6 Lab Test 01/26/25 11:29 Range/Units White Blood Count 10.5 4.4-10.8 10^3/uL Red Blood Count 2.06 L 4.5-5.90 10^6/uL Hemoglobin 4.0 *L 13.5-17.5 g/dL Hematocrit 13.3 L 41.0-53.0 % Mean Corpuscular Volume 64.6 L 80.0-100.0 fL Mean Corpuscular Hemoglobin 19.5 L 28.0-32.0 pg Mean Corpuscular Hemoglobin Concent 30.2 L 32.0-36.0 g/dL Red Cell Distribution Width 31.3 H 11.8-14.3 % Platelet Count 864 *H 140-450 10^3/uL Mean Platelet Volume 7.6 6.9-10.8 fL Neutrophils (%) (Auto) 77.7 37.0-80.0 % Lymphocytes (%) (Auto) 14.7 10.0-50.0 % Monocytes (%) (Auto) 6.4 0.0-12.0 % Eosinophils (%) (Auto) 0.3 0.0-7.0 % Basophils (%) (Auto) 0.9 0.0-2.0 % Neutrophils # (Auto) 8.2 1.6-8.6 10 ^3/uL Lymphocytes # (Auto) 1.6 0.4-5.4 10 ^3/uL Monocytes # (Auto) 0.7 0-1.3 10 ^3/uL Eosinophils # (Auto) 0 0-0.8 10 ^3/uL Basophils # (Auto) 0.1 0-0.2 10 ^3/uL Nucleated Red Blood Cells 0.2 % Platelet Estimate Markedly increased Hypochromasia (manual) Marked Anisocytosis (manual) Moderate Microcytosis Marked Sodium Level 139 136-145 mmol/L Potassium Level 4.4 3.5-5.1 mmol/L Chloride Level 106 98-107 mmol/L Carbon Dioxide Level 24 20-31 mmol/L Anion Gap 9 5-15 Blood Urea Nitrogen 9 9-23 mg/dL Creatinine 1.10 0.700-1.30 mg/dL Glomerular Filtration Rate Calc 84 >90 mL/min BUN/Creatinine Ratio 8.2 L 10.0-20.0 Serum Glucose 102 74-106 mg/dL Calcium Level 9.4 8.7-10.4 mg/dL Current Medications Medications (Trade) Dose Ordered Sig/Aden Route Start Time Stop Time Status Last Admin Ferrous Sulfate 325 mg ONCE ONCE PO 01/26/25 11:30 01/26/25 11:31 DC 01/26/25 11:39 Patient alert. Complaining of bleeding per rectum. Vitals stable. Answering all questions. Possible hemorrhoid. Denies shortness a breath. Denies chest pain. Saturation pristine on room air. Hemoglobin is low. Was given blood transfusion. Explained to the patient. Time of 1ST Reevaluation: 11:18 Reevaluation 1ST: Unchanged Patient Education/Counseling: Diagnosis, Treatment, Prognosis, Need For Follow Up Family Education/Counseling: No Family Present SEPSIS Sepsis Screen Date sepsis recognized/suspect: Jan 26, 2025 Time Sepsis recognized/suspect: 101 Recent Procedure: No On Antibiotic Therapy: No Respiratory Rate >20: No Heart Rate >90: Yes Temp<36 C (96.8 F) or >38.3 C: No SBP <90 or MAP <65 mmHG: No New Acute Mental Status Change: No Is the patient on CPAP, BIPAP,: No Physician Orders Packedcells -Active Bleeding (01/26/25 12:02) Type And Screen (01/26/25 12:02) Vital Signs Date Time Temp Pulse Resp B/P (MAP) Pulse Ox O2 Delivery O2 Flow Rate FiO2 01/26/25 11:40 96 16 100 Room Air 01/26/25 11:40 98.3 96 16 122/61 (81) 100 98.3 01/26/25 10:17 97.6 102 16 128/71 100 97.6 Laboratory Tests Test 01/26/25 11:29 White Blood Count 10.5 10^3/uL (4.4-10.8) Medications Medications Dose Ordered Sig/Aden Route Start Time Stop Time Status Last Admin Dose Admin Ferrous Sulfate 325 mg ONCE ONCE PO 01/26/25 11:30 01/26/25 11:31 DC 01/26/25 11:39 Departure 1 Departure Time of Disposition: 11:19 Impression: Primary Impression: Severe anemia Disposition: ADMITTED INPATIENT Admit to: Med Surg Condition: Guarded Critical Care Note Critical Care Time?: No Stability Stability form required: No Heart Score Heart Score: Heart Score Response (Comments) Value History N/A 0 EKG N/A 0 Age N/A 0 Risk Factors N/A 0 Troponin N/A 0 Total 0 ANNETTE BRIGHT MD Jan 26, 2025 11:19
[2025-01-26] MEDS: FERROUS SULFATE 325mg EC TAB PO ONE (11:39)
[2025-01-26 11:46] LABS: Nucleated Red Blood Cells % 0.2 %
[2025-01-26 11:48] LABS: Hematocrit 13.3 % (41.0-53.0); Mean Corpuscular Hemoglobin 19.5 pg (28.0-32.0); Mean Corpuscular Volume 64.6 fL (80.0-100.0)
[2025-01-26 11:58] LABS: Chloride 106 mmol/L (98-107); Potassium 4.4 mmol/L (3.5-5.1); Sodium 139 mmol/L (136-145)
[2025-01-26 11:59] LABS: Anion Gap 9 (5-15); Calcium 9.4 mg/dL (8.7-10.4); Carbon Dioxide 24 mmol/L (20-31); Hemoglobin 4.0 g/dL (13.5-17.5)
[2025-01-26 12:04] LABS: BUN/Creatinine Ratio 8.2 (10.0-20.0); Blood Urea Nitrogen 9 mg/dL (9-23); Glucose 102 mg/dL (74-106)
[2025-01-26 12:30] LABS: Anisocytosis Moderate
--- NOTE | 2025-01-26 14:55 | DVH ---
Exam: CT CT AB PEL WO CON-NO ORAL OR IV History: hemorroids Comparison Study: MRI MRI ABD PLEVIS W/WO CONT on DOS: 01/02/25, CT CT AB PEL WITH IV CON ONLY on DO S: 12/31/24, CT CT AB PEL WO CON-NO ORAL OR IV on DOS: 07/10/24 TECHNIQUE: Multidetector CT of the abdomen was performed from lung bases to pubic symphysis. Imaging was performed without IV contrast. Axial, coronal and sagittal multiplanar reformats were obtained fr om the axial data set by the technologist. Radiation Dose Information: CT Dose: CTDI volume is 6.72 mGy. Dose-length product is 368.91 mGy*cm FINDINGS: Evaluation of solid organs is limited due to lack of intravenous contrast use. Findings: Lung Bases: No acute or significant lung base finding. Normal heart size. No pleural or pericardial effusion. Liver: The liver is normal in size. No focal lesions. Gallbladder and Biliary Tree: Unremarkable Spleen: Unremarkable Pancreas: The pancreas is grossly normal in appearance. Adrenal Glands: Unremarkable Kidneys: 3 cm hypodense lesion mid left kidney with a 6 mm bubble of gas within it. Margins not well identified Bladder: 5 mm calculus near the left ureterovesical junction. Bowel: The stomach is grossly normal in appearance. Small bowel and colon are normal in caliber and d istribution. Normal appendix is visualized in the right lower quadrant without findings of appendici tis. Ascites: Absent Lymphadenopathy: No mesenteric, retroperitoneal or periportal lymphadenopathy. Abdominal Wall and Mesentery: Unremarkable. Vasculature: The visualized abdominal aorta is normal in size and caliber. Evaluation of abdominal a nd pelvic vessels is limited due to lack of intravenous contrast. Pelvic Organs: Unremarkable Musculoskeletal: No aggressive focal bony lesions, acute fractures or dislocation. Degenerative disc changes at L5-S1 with irregularity of the inferior endplate of L5 and superior endplate of S1. Soft tissues: Unremarkable IMPRESSION: 1. 3 cm hypodense lesion left kidney 6 mm rounded collection of gas. Margins are not well identified correlate with known medical history for lesion in the left kidney. 2. 5 mm calcification in the pelvis. Located near the left ureteral vesicle junction series 2, image 72. 3. Degenerative disc changes at L5-S1 with 5-10 mm retrolisthesis. Radiation optimization: All CT scans at this facility use at least one of these dose optimization te chniques: automated exposure control mA and/or kV adjustment per patient size (includes targeted exa ms where dose is matched to clinical indication) or iterative reconstruction. HS:Y
--- NOTE | 2025-01-26 15:17 | DVHHPRES ---
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 Patient reports generalized weakness, reports that he was recently here and was discharged after the diagnosed with a papillary renal carcinoma and underwent post ablation, he has been bleeding through rectum, maroon colored every day since 2018, which got worsened and patient started to experience generalized weakness, low appetite, was lethargic and felt dizzy. Therefore patient decided come to the ER. He denies any constipation or diarrhea, fever or chills, chest pain or shortness of breaths at this time. PCP Dr. Caban Social history: Lives with , smokes marijuana daily, denies drug use, drinks socially Patient was discharged on 01/07 from this facility for symptomatic anemia secondary to blood loss and left renal mass On arrival to the ER, hemoglobin is 4. Three packed RBCs ordered by the ER physician. Patient is A&O x3, is lethargic and pale. Surgeon consulted for management of hemorrhoids. 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 No scleral icterus seen Cardiovascular: Regular S1 and S2. No murmurs, gallops or rubs. No JVD elevation. No pedal edema Respiratory: Normal B/L air entry on room air. Clear lung sounds on auscultation Abdomen: Soft, slightly tender, nondistended, normoactive bowel sounds, no rebound tenderness, no organomegaly, no masses Genitourinary: Deferred MSK/skin: Mobilizes 4 limbs. Skin is dry and warm Neurological: No motor, no sensitive deficits, normal speech. Pupils are isocoric and reactive. Psych/Mental Status: A/Ox3 Labs/Xrays Labs Test 01/26/25 11:29 Range/Units White Blood Count 10.5 4.4-10.8 10^3/uL Red Blood Count 2.06 L 4.5-5.90 10^6/uL Hemoglobin 4.0 *L 13.5-17.5 g/dL Hematocrit 13.3 L 41.0-53.0 % Mean Corpuscular Volume 64.6 L 80.0-100.0 fL Mean Corpuscular Hemoglobin 19.5 L 28.0-32.0 pg Mean Corpuscular Hemoglobin Concent 30.2 L 32.0-36.0 g/dL Red Cell Distribution Width 31.3 H 11.8-14.3 % Platelet Count 864 *H 140-450 10^3/uL Mean Platelet Volume 7.6 6.9-10.8 fL Neutrophils (%) (Auto) 77.7 37.0-80.0 % Lymphocytes (%) (Auto) 14.7 10.0-50.0 % Monocytes (%) (Auto) 6.4 0.0-12.0 % Eosinophils (%) (Auto) 0.3 0.0-7.0 % Basophils (%) (Auto) 0.9 0.0-2.0 % Neutrophils # (Auto) 8.2 1.6-8.6 10 ^3/uL Lymphocytes # (Auto) 1.6 0.4-5.4 10 ^3/uL Monocytes # (Auto) 0.7 0-1.3 10 ^3/uL Eosinophils # (Auto) 0 0-0.8 10 ^3/uL Basophils # (Auto) 0.1 0-0.2 10 ^3/uL Nucleated Red Blood Cells 0.2 % Platelet Estimate Markedly increased Hypochromasia (manual) Marked Anisocytosis (manual) Moderate Microcytosis Marked Sodium Level 139 136-145 mmol/L Potassium Level 4.4 3.5-5.1 mmol/L Chloride Level 106 98-107 mmol/L Carbon Dioxide Level 24 20-31 mmol/L Anion Gap 9 5-15 Blood Urea Nitrogen 9 9-23 mg/dL Creatinine 1.10 0.700-1.30 mg/dL Glomerular Filtration Rate Calc 84 >90 mL/min BUN/Creatinine Ratio 8.2 L 10.0-20.0 Serum Glucose 102 74-106 mg/dL Calcium Level 9.4 8.7-10.4 mg/dL SEPSIS Sepsis Screen Date sepsis recognized/suspect: Jan 26, 2025 Time Sepsis recognized/suspect: 101 Recent Procedure: No On Antibiotic Therapy: No Respiratory Rate >20: No Heart Rate >90: Yes Temp<36 C (96.8 F) or >38.3 C: No SBP <90 or MAP <65 mmHG: No New Acute Mental Status Change: No Is the patient on CPAP, BIPAP,: No Physician Orders Type And Screen (01/26/25 12:02) Ct Ab Pel Wo Con-No Oral Or Iv (01/26/25 13:02) Admit (01/26/25 14:50) * Surgical Consult (01/26/25 14:50) Vital Signs Date Time Temp Pulse Resp B/P (MAP) Pulse Ox O2 Delivery O2 Flow Rate FiO2 01/26/25 14:40 99.2 90 14 116/61 99.2 01/26/25 13:40 97.0 98 24 122/65 (84) 100 97.0 01/26/25 13:39 Room Air* 0 21 01/26/25 11:40 96 16 100 Room Air 01/26/25 11:40 98.3 96 16 122/61 (81) 100 98.3 01/26/25 10:17 97.6 102 16 128/71 100 97.6 Laboratory Tests Test 01/26/25 11:29 White Blood Count 10.5 10^3/uL (4.4-10.8) Medications Medications Dose Ordered Sig/Aden Route Start Time Stop Time Status Last Admin Dose Admin Ferrous Sulfate 325 mg ONCE ONCE PO 01/26/25 11:30 01/26/25 11:31 DC 01/26/25 11:39 325 MG Assessment/Plan Assessment/Plan Acute severe blood loss symptomatic anemia secondary to internal hemorrhoids bleeding Acute active lower GI bleeding Acute on chronic microcytic anemia Generalized weakness secondary to above H&H 10/06.3, MCV 64, baseline 01/09 02/[address] Anaya consulted for surgical management of hemorrhoids Three packed RBCs ordered, undergoing transfusion Repeat H&H after transfusion Goal hemoglobin greater than 7 Consider IV iron supplementation Protonix b.i.d NPO status Papillary renal cell carcinoma status post cryoablation CT scan shows 3 cm hypodense lesion left kidney 6 mm rounded collection of gas Denies hematuria Left-sided nephrolithiasis CT abdomen shows 5 mm calculus near the left ureterovesical junction Degenerative disc disease CT scan shows Degenerative disc changes at L5-S1 with 5-10 mm retrolisthesis Thrombocytosis Monitor platelets Marijuana use disorder Counseled on marijuana use cessation for 22 minutes DVT prophylaxis SCDs NPO Surgery consultation pending Plan discussed with patient, and nurse in ER in which all questions have been answered Goals of care discussed with the patient for 20 minutes, full code status 99 minutes of critical care time Case discussed with Dr. Caban I was physically present for the sofia portions of the service provided to patient by THE RESIDENT. I have reviewed the documentation, discussed the case with resident and agree with the resident's documentation except as noted. Also the patient's clinical case was discussed with the patient's nurse. This medical document was created using an electronic medical record system with computerized dictation system. Although this document has been carefully reviewed, there might still be some phonetic and typographical errors. These areas are purely typographical due to imperfections of the software programs, and do not reflect any compromise in the patient's medical care. Late signature. Plan discussed with: Patient, Other (Nurse) My Orders Orders - ARNALDO SHEN Procedure Category Date Status Time Admit ADMIT 01/26/25 Transmitted 14:50 * Surgical Consult CONS 01/26/25 Transmitted 14:50 Date of Service: Jan 26, 2025 Billing Provider: PATY CABAN MD Common Visit Codes: 30813-[id number] INP/OBS CARE (HIGH), 83315-[id number] CARE 30- 74 MIN (99 minutes), 28227-[id number] CARE-EACH +30MIN Secondary Visit Codes: 01707-[id number] CARE PLAN 30 MINUTES (20 minutes) ARNALDO SHEN Jan 26, 2025 15:17 PATY CABAN MD Jan 28, 2025 06:22
[2025-01-26] MEDS ORDERED: ACETAMINOPHEN 500 MG TAB or CAP PO PRN (15:30)
[2025-01-26 15:41] LABS: Alanine Aminotransferase 15 U/L (7-40); Albumin 4.8 g/dL (3.2-4.8); Alkaline Phosphatase 49 U/L (46-116); Bilirubin, Direct 0.1 mg/dL (<0.3); Magnesium 2.1 mg/dL (1.6-2.6); Total Protein 6.9 g/dL (5.7-8.2)
[2025-01-26 15:42] LABS: Bilirubin, Total 0.4 mg/dL (0.2-1.0)
[2025-01-26] MEDS: PANTOPRAZOLE 40 MG/10 ML VIAL INJ IV ONE (16:15)
--- NOTE | 2025-01-26 18:54 | DVHINCON2 ---
Date of service: Jan 26, 2025 Family History: Patient reports no known family medical history. Allergies: Coded Allergies: Penicillins (Verified Allergy, Unknown, 07/10/24) Shellfish Allergy (Verified Allergy, Unknown, 12/16/24) Home Meds Active Scripts Cyclobenzaprine HCl (Cyclobenzaprine Hydrochlo) 10 Mg Tab, 10 MG PO HS for 5 Days, #10 TAB 0 Refills Prov:DYLON CELIS MD 07/12/24 Psyllium (Metamucil) 0.36 Gm Cap, 0.36 GM PO BID for 30 Days, #60 CAP 0 Refills Prov:DYLON CELIS MD 07/12/24 Lactulose (Lactulose) 10 Gm/15 Ml Arlene, 10 GM PO DAILY for 14 Days, #236 ML 0 Refills Prov:DYLON CELIS MD 07/12/24 Current Medications Current Medications Medications (Trade) Dose Ordered Sig/Aden Route PRN Reason Start Time Stop Time Status Last Admin Pantoprazole Sodium (Protonix) 40 mg BID IV 01/26/25 22:00 Acetaminophen (Tylenol Tablet Or Capsule) 500 mg Q4HPRN PRN PO MILD PAIN (1-3 PAIN SCALE) 01/26/25 15:30 Morphine Sulfate 1 mg Q4HPRN PRN IV SEVERE PAIN (7-10 PAIN SCALE) 01/26/25 15:30 Vital Signs Vital Signs Date Time Temp Pulse Resp B/P (MAP) Pulse Ox O2 Delivery O2 Flow Rate FiO2 01/26/25 17:30 99.2 85 19 111/42 99.2 01/26/25 15:35 100 01/26/25 13:39 Room Air* 0 21 Labs/Diagnostic Data Labs Test 01/26/25 11:29 Range/Units White Blood Count 10.5 4.4-10.8 10^3/uL Red Blood Count 2.06 L 4.5-5.90 10^6/uL Hemoglobin 4.0 *L 13.5-17.5 g/dL Hematocrit 13.3 L 41.0-53.0 % Mean Corpuscular Volume 64.6 L 80.0-100.0 fL Mean Corpuscular Hemoglobin 19.5 L 28.0-32.0 pg Mean Corpuscular Hemoglobin Concent 30.2 L 32.0-36.0 g/dL Red Cell Distribution Width 31.3 H 11.8-14.3 % Platelet Count 864 *H 140-450 10^3/uL Mean Platelet Volume 7.6 6.9-10.8 fL Neutrophils (%) (Auto) 77.7 37.0-80.0 % Lymphocytes (%) (Auto) 14.7 10.0-50.0 % Monocytes (%) (Auto) 6.4 0.0-12.0 % Eosinophils (%) (Auto) 0.3 0.0-7.0 % Basophils (%) (Auto) 0.9 0.0-2.0 % Neutrophils # (Auto) 8.2 1.6-8.6 10 ^3/uL Lymphocytes # (Auto) 1.6 0.4-5.4 10 ^3/uL Monocytes # (Auto) 0.7 0-1.3 10 ^3/uL Eosinophils # (Auto) 0 0-0.8 10 ^3/uL Basophils # (Auto) 0.1 0-0.2 10 ^3/uL Nucleated Red Blood Cells 0.2 % Platelet Estimate Markedly increased Hypochromasia (manual) Marked Anisocytosis (manual) Moderate Microcytosis Marked Reticulocyte Count (auto) 2.77 H 0.5-1.5 % Sodium Level 139 136-145 mmol/L Potassium Level 4.4 3.5-5.1 mmol/L Chloride Level 106 98-107 mmol/L Carbon Dioxide Level 24 20-31 mmol/L Anion Gap 9 5-15 Blood Urea Nitrogen 9 9-23 mg/dL Creatinine 1.10 0.700-1.30 mg/dL Glomerular Filtration Rate Calc 84 >90 mL/min BUN/Creatinine Ratio 8.2 L 10.0-20.0 Serum Glucose 102 74-106 mg/dL Calcium Level 9.4 8.7-10.4 mg/dL Magnesium Level 2.1 1.6-2.6 mg/dL Total Bilirubin 0.4 0.2-1.0 mg/dL Direct Bilirubin 0.1 <0.3 mg/dL Aspartate Amino Transferase (AST) 15 13-40 U/L Alanine Aminotransferase (ALT) 15 7-40 U/L Alkaline Phosphatase 49 46-116 U/L Total Protein 6.9 5.7-8.2 g/dL Albumin 4.8 3.2-4.8 g/dL Thyroid Stimulating Hormone (TSH) 1.05 0.55-4.78 uIU/mL Plasma/Serum Blood Alcohol < 3.0 <10 mg/dL Assessment CO RECTAL BLEED HX OF HEMORRHOID RENAL TUMOR AFEBRILE VSS CONSULT GI EVAL AND POSSIBLE COLONOSCOPY INDICATED CLOSE OBSERVATION DISCUSSED WITH NURSE Plan discussed with: Other MARITA DOWNING MD Jan 26, 2025 18:54
[2025-01-26 21:58] LABS: INR 1.08 (0.9-1.15); Partial Thromboplastin Time 20.7 SEC (24.5-34.5); Prothrombin Time 11.4 sec (9.3-11.8)
[2025-01-26] MEDS: PANTOPRAZOLE 40 MG/10 ML VIAL INJ IV SCH (23:39)
[2025-01-27] VITALS (19 sets, daily range): BP systolic 100–130; BP diastolic 50–96; PULSE 59–84; RESP 16–19; TEMP 97.8–98.7; O2SAT 98–100
--- NOTE | 2025-01-27 06:29 | DVHINCON2 ---
Date of service: Jan 27, 2025 Referring Physician Boris Reason for Consultation Rectal bleeding Anemia History of Present Illness Patient is a 44-year-old male with a past medical history significant for chronic GI blood loss due to hemorrhoids, history of renal cancer diagnosed recently status post ablation, history of hyperlipidemia, admitted with presyncope, found to have low hemoglobin likely due to chronic GI blood loss from hemorrhoids. Patient denies any abdominal pain. She states that his last colonoscopy was in 2018 or 2019 in [place]. He states that he had hemorrhoids. He denies any dysphagia, odynophagia, hematemesis, dark stools. Patient has had multiple admissions for similar. He states that he was being worked up for surgery with Dr. Rowley. Patient denies any recent colonoscopy. GI consultation was obtained for evaluation. Past Medical History As above Past Surgical History As above Family History: Patient reports no known family medical history. 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 Allergies: Coded Allergies: Penicillins (Verified Allergy, Unknown, 07/10/24) Shellfish Allergy (Verified Allergy, Unknown, 12/16/24) Home Meds No Active Prescriptions or Reported Meds Current Medications Current Medications Medications (Trade) Dose Ordered Sig/Aden Route PRN Reason Start Time Stop Time Status Last Admin Pantoprazole Sodium (Protonix) 40 mg BID IV 01/26/25 22:00 01/26/25 23:39 Acetaminophen (Tylenol Tablet Or Capsule) 500 mg Q4HPRN PRN PO MILD PAIN (1-3 PAIN SCALE) 01/26/25 15:30 Morphine Sulfate 1 mg Q4HPRN PRN IV SEVERE PAIN (7-10 PAIN SCALE) 01/26/25 15:30 Review of Systems Review of systems negative other than HPI History of renal cancer in History of anemia new line history of hemorrhoids History of hyperlipidemia Vital Signs Vital Signs Date Time Temp Pulse Resp B/P (MAP) Pulse Ox O2 Delivery O2 Flow Rate FiO2 01/27/25 05:00 97.8 60 16 124/50 (74) 100 97.8 01/26/25 23:47 Room Air* 0 21 Physical Exam General: Alert and oriented x4 Head: NC/AT EOMI PERRLA-op clear heart: Regular rate and rhythm abdomen: Soft nontender nondistended Extremity: No clubbing cyanosis or edema Labs/Diagnostic Data Labs Test 01/26/25 21:30 01/26/25 11:29 Range/Units Prothrombin Time 11.4 9.3-11.8 sec Prothrombin Time INR 1.08 0.9-1.15 Activated Partial Thromboplast Time 20.7 L 24.5-34.5 SEC White Blood Count 10.5 4.4-10.8 10^3/uL Red Blood Count 2.06 L 4.5-5.90 10^6/uL Hemoglobin 4.0 *L 13.5-17.5 g/dL Hematocrit 13.3 L 41.0-53.0 % Mean Corpuscular Volume 64.6 L 80.0-100.0 fL Mean Corpuscular Hemoglobin 19.5 L 28.0-32.0 pg Mean Corpuscular Hemoglobin Concent 30.2 L 32.0-36.0 g/dL Red Cell Distribution Width 31.3 H 11.8-14.3 % Platelet Count 864 *H 140-450 10^3/uL Mean Platelet Volume 7.6 6.9-10.8 fL Neutrophils (%) (Auto) 77.7 37.0-80.0 % Lymphocytes (%) (Auto) 14.7 10.0-50.0 % Monocytes (%) (Auto) 6.4 0.0-12.0 % Eosinophils (%) (Auto) 0.3 0.0-7.0 % Basophils (%) (Auto) 0.9 0.0-2.0 % Neutrophils # (Auto) 8.2 1.6-8.6 10 ^3/uL Lymphocytes # (Auto) 1.6 0.4-5.4 10 ^3/uL Monocytes # (Auto) 0.7 0-1.3 10 ^3/uL Eosinophils # (Auto) 0 0-0.8 10 ^3/uL Basophils # (Auto) 0.1 0-0.2 10 ^3/uL Nucleated Red Blood Cells 0.2 % Platelet Estimate Markedly increased Hypochromasia (manual) Marked Anisocytosis (manual) Moderate Microcytosis Marked Reticulocyte Count (auto) 2.77 H 0.5-1.5 % Sodium Level 139 136-145 mmol/L Potassium Level 4.4 3.5-5.1 mmol/L Chloride Level 106 98-107 mmol/L Carbon Dioxide Level 24 20-31 mmol/L Anion Gap 9 5-15 Blood Urea Nitrogen 9 9-23 mg/dL Creatinine 1.10 0.700-1.30 mg/dL Glomerular Filtration Rate Calc 84 >90 mL/min BUN/Creatinine Ratio 8.2 L 10.0-20.0 Serum Glucose 102 74-106 mg/dL Calcium Level 9.4 8.7-10.4 mg/dL Magnesium Level 2.1 1.6-2.6 mg/dL Total Bilirubin 0.4 0.2-1.0 mg/dL Direct Bilirubin 0.1 <0.3 mg/dL Aspartate Amino Transferase (AST) 15 13-40 U/L Alanine Aminotransferase (ALT) 15 7-40 U/L Alkaline Phosphatase 49 46-116 U/L Total Protein 6.9 5.7-8.2 g/dL Albumin 4.8 3.2-4.8 g/dL Thyroid Stimulating Hormone (TSH) 1.05 0.55-4.78 uIU/mL Plasma/Serum Blood Alcohol < 3.0 <10 mg/dL Assessment 1. Iron-deficiency anemia 2. History of renal cancer 3. Internal external hemorrhoids Problems(with codes): (1) GI bleed (2) Gastrointestinal hemorrhage, unspecified (3) Rectal bleeding (4) Symptomatic anemia (5) Renal mass (6) Liver lesion (7) Hemorrhoids, internal (8) Severe anemia Plan/Recommendation 1. Follow H&H and transfuse 2 Clear liquid diet 3. Prep for colonoscopy, risks, benefits, and alternatives discussed, informed consent obtained 4. Consider EGD 5. Consider nine GI sources of anemia including heme workup Plan discussed with: Patient BETSEY WILLARD MD Jan 27, 2025 06:29
[2025-01-27 07:29] LABS: Hematocrit 20.9 % (41.0-53.0); Mean Corpuscular Hemoglobin 23.9 pg (28.0-32.0); Mean Corpuscular Volume 72.0 fL (80.0-100.0)
[2025-01-27 07:38] LABS: Hemoglobin 6.9 g/dL (13.5-17.5)
[2025-01-27 07:48] LABS: Alanine Aminotransferase 12 U/L (7-40); Albumin 4.6 g/dL (3.2-4.8); Alkaline Phosphatase 48 U/L (46-116); Anion Gap 10 (5-15); BUN/Creatinine Ratio 8.7 (10.0-20.0); Blood Urea Nitrogen 10 mg/dL (9-23); Calcium 9.8 mg/dL (8.7-10.4); Carbon Dioxide 24 mmol/L (20-31); Chloride 106 mmol/L (98-107); Glucose 85 mg/dL (74-106); Potassium 4.4 mmol/L (3.5-5.1); Sodium 140 mmol/L (136-145); Total Protein 6.9 g/dL (5.7-8.2)
[2025-01-27 07:52] LABS: Urine Protein, UAD Negative (Negative)
[2025-01-27 07:55] LABS: Bilirubin, Total 1.7 mg/dL (0.2-1.0)
[2025-01-27 08:02] LABS: Amphetamine Screen, Urine Neg (NEGATIVE); Barbiturate Scree,Urine Neg (NEGATIVE); Benzodiazephine Screen, Urine Neg (NEGATIVE); Cannabinoid Screen, Urine Pos (NEGATIVE); Cocaine Screen, Urine Neg (NEGATIVE); Opiate Scree,Urine Neg (NEGATIVE); Phencyclidine Screen, Urine Neg (NEGATIVE)
[2025-01-27 08:21] LABS: Total Cells Counted 100.0 (100)
[2025-01-27 08:22] LABS: Anisocytosis Marked
[2025-01-27] MEDS: ERGOCALCIFEROL 50,000 UNIT(1.25MG) CAP PO SCH (12:44)
[2025-01-27] MEDS: GOLYTELY 4L KIT PO ONE (13:03)
--- NOTE | 2025-01-27 15:34 | DVHPNRES ---
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 Patient reports generalized weakness, reports that he was recently here and was discharged after the diagnosed with a papillary renal carcinoma and underwent post ablation, he has been bleeding through rectum, maroon colored every day since 2018, which got worsened and patient started to experience generalized weakness, low appetite, was lethargic and felt dizzy. Therefore patient decided come to the ER. He denies any constipation or diarrhea, fever or chills, chest pain or shortness of breaths at this time. 01/27/2025 Patient seen at bedside. Patient appears alert x3, in mild distress, he complains of bleeding per rectum and pain when he strains to use the bathroom. He reported feeling dizzy yesterday but feels better today. He feels generalized weakness because he has not eaten in 3 days, and he is NPO status because possible colonoscopy to be done. He received 4 packets of PRBC and 1 FFP. Hemoglobin today is 6.9. H and H is being monitored. Vitals are stable, no overnight events were reported. Rest of ROS is negative. GI was consulted for possible colonoscopy. Surgery was consulted for possible hemorrhoidectomy. vit. D levels were low and vitamin-D were supplemented. Objective vital signs Vital Sign Date Time Temp Pulse Resp B/P (MAP) Pulse Ox O2 Delivery O2 Flow Rate FiO2 01/27/25 13:00 98.4 59 17 116/54 (74) 98 98.4 01/27/25 08:10 Room Air* 0 21 Total Intake and Output 01/26/25 01/26/25 01/27/25 15:00 23:00 07:00 Intake Total 850 ml 300 ml Output Total 0 ml 475 ml Balance 850 ml -175 ml medications Current Medications Medications Dose Ordered Sig/Aden Route Start Time Stop Time Status Last Admin Dose Admin Pantoprazole Sodium 40 mg BID IV 01/26/25 22:00 01/27/25 08:56 40 MG Acetaminophen 500 mg Q4HPRN PRN PO 01/26/25 15:30 Morphine Sulfate 1 mg Q4HPRN PRN IV 01/26/25 15:30 Ergocalciferol 50,000 unit Q7D PO 01/27/25 11:30 01/27/25 12:44 50,000 UNIT Examination General: Patient alert and oriented in person, place and time. Patient following commands. HEENT: Normocephalic, atraumatic, moist mucous membranes Respiratory/pulmonary: Clear lungs bilaterally, vesicular murmurs present in almost all lung brunner, no associated crackles or wheezes. Cardiovascular: Normal heart sounds S1 and S2 with no associated murmurs Abdomen: Mild Epigastric tenderness, Extremities: There is no peripheral edema present at the lower extremities. Peripheral Pulses: 3+ Radial (R). 3+ Radial (L). 3+ Dorsalis pedis (R). 3+ Dorsalis pedis(L) Skin: No rashes or pruritus, there is no sacral edema present at this time. Neurological: Intact cranial nerves with no focal neurologic deficits laboratory and microbiology Laboratory Tests 01/27/25 06:33 Test 01/27/25 06:33 Range/Units Serum Glucose 85 74-106 mg/dL Microbiology Date/Time Source Procedure Growth Status 01/27/25 06:00 Nose MRSA Screen - Final Complete Problem List/Assessment/Plan Problem List/Assessment/Plan Acute blood loss symptomatic anemia secondary to internal hemorrhoids Acute lower GI bleeding Microcytic anemia Generalized weakness secondary to above -H&H 6.9/20.9 , MCV 64, baseline 01/09 02/19 -Surgeon Dr. 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 Bagley Plan discussed with: Patient My Orders My Orders Orders - RONNY RIDLEY RESIDENT Procedure Category Date Status Time * Gi Dvh Evaporator Operator CONS 01/27/25 Transmitted 08:32 Ergocalciferol PHA 01/27/25 In Process (Vitamin D 50,000 11:30 CC Plasma Assessment Blood Product Administration S: [id number] RONNY RIDLEY RESIDENT Jan 27, 2025 15:34
[2025-01-27 16:23] LABS: Hematocrit 24.2 % (41.0-53.0); Hemoglobin 7.7 g/dL (13.5-17.5)
--- NOTE | 2025-01-27 18:24 | DVHINCON2 ---
Date of service: Jan 27, 2025 Family History: Patient reports no known family medical history. Allergies: Coded Allergies: Penicillins (Verified Allergy, Unknown, 07/10/24) Shellfish Allergy (Verified Allergy, Unknown, 12/16/24) Home Meds No Active Prescriptions or Reported Meds Current Medications Current Medications Medications (Trade) Dose Ordered Sig/Aden Route PRN Reason Start Time Stop Time Status Last Admin Pantoprazole Sodium (Protonix) 40 mg BID IV 01/26/25 22:00 01/27/25 08:56 Ergocalciferol (Vitamin D 50,000 Unit) 50,000 unit Q7D PO 01/27/25 11:30 01/27/25 12:44 Vital Signs Vital Signs Date Time Temp Pulse Resp B/P (MAP) Pulse Ox O2 Delivery O2 Flow Rate FiO2 01/27/25 17:43 98.3 80 18 120/66 98.3 01/27/25 17:17 100 01/27/25 08:10 Room Air* 0 21 Labs/Diagnostic Data Labs Test 01/27/25 15:57 01/27/25 10:43 01/27/25 06:33 01/27/25 06:05 Range/Units Hemoglobin 7.7 L 13.5-17.5 g/dL Hematocrit 24.2 #L 41.0-53.0 % White Blood Count 6.5 # 4.4-10.8 10^3/uL Red Blood Count 2.90 L 4.5-5.90 10^6/uL Mean Corpuscular Volume 72.0 #L 80.0-100.0 fL Mean Corpuscular Hemoglobin 23.9 L 28.0-32.0 pg Mean Corpuscular Hemoglobin Concent 33.2 32.0-36.0 g/dL Red Cell Distribution Width 30.8 H 11.8-14.3 % Platelet Count 714 H 140-450 10^3/uL Mean Platelet Volume 7.6 6.9-10.8 fL Neutrophils (%) (Auto) 37.0-80.0 % Lymphocytes (%) (Auto) 10.0-50.0 % Monocytes (%) (Auto) 0.0-12.0 % Basophils (%) (Auto) 0.0-2.0 % Neutrophils # (Auto) 1.6-8.6 10 ^3/uL Lymphocytes # (Auto) 0.4-5.4 10 ^3/uL Monocytes # (Auto) 0-1.3 10 ^3/uL Differential Total Cells Counted 100.0 100 Neutrophils % (Manual) 83 H 37.0-80.0 Band Neutrophils % (Manual) 0 Lymphocytes % (Manual) 14 10.0-50.0 Monocytes % (Manual) 2 0-12 Eosinophils % (Manual) 1 0-7 Basophils % (Manual) 0 0.0-2.0 Metamyelocytes % (manual) 0 Myelocytes % (Manual) 0 Promyelocytes % (Manual) 0 Blast Cells % (Manual) 0 Reactive Lymphocytes 0 Platelet Estimate Increased Hypochromasia (manual) Moderate Anisocytosis (manual) Marked Microcytosis Moderate Sodium Level 140 136-145 mmol/L Potassium Level 4.4 3.5-5.1 mmol/L Chloride Level 106 98-107 mmol/L Carbon Dioxide Level 24 20-31 mmol/L Anion Gap 10 5-15 Blood Urea Nitrogen 10 9-23 mg/dL Creatinine 1.15 0.700-1.30 mg/dL Glomerular Filtration Rate Calc 79 >90 mL/min BUN/Creatinine Ratio 8.7 L 10.0-20.0 Serum Glucose 85 74-106 mg/dL Calcium Level 9.8 8.7-10.4 mg/dL Total Bilirubin 1.7 H 0.2-1.0 mg/dL Aspartate Amino Transferase (AST) 16 13-40 U/L Alanine Aminotransferase (ALT) 12 7-40 U/L Alkaline Phosphatase 48 46-116 U/L Lactate Dehydrogenase 207 120-246 U/L Total Protein 6.9 5.7-8.2 g/dL Albumin 4.6 3.2-4.8 g/dL Urine Color Light-yellow Yellow Urine Clarity Clear Clear Urine pH 6.0 5.0-9.0 Urine Specific [place] 1.011 1.001-1.035 Urine Protein Negative Negative Urine Ketones Negative Negative Urine Blood 2+ H Negative /uL Urine Nitrite Negative Negative Urine Bilirubin Negative Negative Urine Urobilinogen Normal Negative mg/dL Urine Leukocyte Esterase Negative Negative /uL Urine RBC <1 0 - 3 /hpf Urine Microscopic WBC 6 H 0-3 /HPF Urine Squamous Epithelial Cells None seen <5 /hpf Urine Bacteria None seen None Seen /hpf Urine Mucus Few None Seen Urine Glucose Normal Normal mg/dL Urine Opiates Screen Neg NEGATIVE Urine Fentanyl Screen Neg NEGATIVE Urine Barbiturates Screen Neg NEGATIVE Urine Phencyclidine Screen Neg NEGATIVE Urine Amphetamines Screen Neg NEGATIVE Urine Benzodiazepines Screen Neg NEGATIVE Urine Cocaine Screen Neg NEGATIVE Urine Cannabinoids Screen Pos NEGATIVE Test 01/26/25 21:30 01/26/25 11:29 Range/Units Prothrombin Time 11.4 9.3-11.8 sec Prothrombin Time INR 1.08 0.9-1.15 Activated Partial Thromboplast Time 20.7 L 24.5-34.5 SEC Eosinophils (%) (Auto) 0.3 0.0-7.0 % Eosinophils # (Auto) 0 0-0.8 10 ^3/uL Basophils # (Auto) 0.1 0-0.2 10 ^3/uL Nucleated Red Blood Cells 0.2 % Reticulocyte Count (auto) 2.77 H 0.5-1.5 % Magnesium Level 2.1 1.6-2.6 mg/dL Direct Bilirubin 0.1 <0.3 mg/dL Vitamin B12 Level 430 211-911 pg/mL Vitamin D 25-Hydroxy 22.4 L 30.0-100 ng/mL Thyroid Stimulating Hormone (TSH) 1.05 0.55-4.78 uIU/mL Plasma/Serum Blood Alcohol < 3.0 <10 mg/dL Microbiology Date/Time Source Procedure Growth Status 01/27/25 06:00 Nose MRSA Screen - Final Complete Assessment [id number] CO RECTAL BLEED HX OF HEMORRHOID RENAL TUMOR AFEBRILE VSS CONSULT GI EVAL AND POSSIBLE COLONOSCOPY INDICATED CLOSE OBSERVATION DISCUSSED WITH NURSE Plan discussed with: Patient MARITA DOWNING MD Jan 27, 2025 18:23
[2025-01-27] MEDS: MORPHINE SULFATE INJ 2 MG/ml SYRG IV PRN (22:10)
[2025-01-28] VITALS (12 sets, daily range): BP systolic 98–131; BP diastolic 58–86; PULSE 51–89; RESP 11–20; TEMP 97.6–98.6; O2SAT 97–100
--- NOTE | 2025-01-28 00:37 | DVHINCON2 ---
DATE OF CONSULTATION: 01/27/2025 HISTORY OF PRESENT ILLNESS: This patient is 44 years old coming in with rectal bleed. He has no abdominal pain, diagnosed with papillary renal carcinoma and treated for that with ablation and he had bleeding hemorrhoids for several years and now his hemoglobin was way down to 4. He was transfused and he is not actively bleeding from his rectum at this time and GI evaluation is ongoing. PAST MEDICAL HISTORY: No diabetes or hypertension. PAST SURGICAL HISTORY: As I mentioned above. PHYSICAL EXAMINATION: VITAL SIGNS: Afebrile, stable signs. HEENT: He is slightly pale. No cyanosis or jaundice. NECK: Supple and nontender, with no thyromegaly or lymphadenopathy. CHEST AND LUNGS: Clear. HEART: Within normal limits. ABDOMEN: Soft and nontender. No rebound. EXTREMITIES: Unremarkable. RECTAL: Reveals nonbleeding external and internal hemorrhoids, possibly stage II or III. PLAN: At this point, does not need acute surgical intervention. He does have ongoing GI bleed that needs to be evaluated by GI, so colonoscopy is being recommended and is being planned. After that, the surgery regarding the hemorrhoids certainly can be considered. MD HILARIO Tracy/ALEJO TID: [id number] RECEIPT: [id number] cc: Jose Ryan,
[2025-01-28 07:58] LABS: Hemoglobin 7.4 g/dL (13.5-17.5)
[2025-01-28 08:00] LABS: Hematocrit 22.0 % (41.0-53.0); Mean Corpuscular Hemoglobin 24.6 pg (28.0-32.0); Mean Corpuscular Volume 72.9 fL (80.0-100.0); Nucleated Red Blood Cells % 0.5 %
[2025-01-28] MEDS: MAGNESIUM CITRATE SOLUTION 300 ML BTL PO ONE (08:49)
[2025-01-28 09:39] LABS: Chloride 105 mmol/L (98-107); Potassium 3.9 mmol/L (3.5-5.1); Sodium 140 mmol/L (136-145)
[2025-01-28 09:40] LABS: Anion Gap 8 (5-15); Carbon Dioxide 27 mmol/L (20-31)
[2025-01-28 09:41] LABS: Calcium 9.4 mg/dL (8.7-10.4)
[2025-01-28 09:45] LABS: BUN/Creatinine Ratio 10.1 (10.0-20.0); Blood Urea Nitrogen 11 mg/dL (9-23); Glucose 79 mg/dL (74-106)
[2025-01-28] MEDS: SODIUM CHLORIDE 0.9% 500 ML IV ONE (11:09)
[2025-01-28] MEDS ORDERED: FLUMAZENIL 0.1 MG/ML INJ 10ML MDV IV ONE (12:58)
[2025-01-28] MEDS ORDERED: NALOXONE HCL 0.4 MG/ML VIAL ONE (12:58)
[2025-01-28] MEDS ORDERED: fentaNYL CITRATE 100 MCG/2 ML VL ONE (12:58)
[2025-01-28] MEDS ORDERED: SODIUM CHLORIDE LOCK 10 ML ONE (12:58)
[2025-01-28] MEDS: diphenhdrAMINE HCL 50 MG/1 ML VL ONE (13:36)
[2025-01-28] MEDS: MIDAZOLAM HCL 5 MG/ML-1ML VIAL ONE (13:36)
[2025-01-28] MEDS: fentaNYL CITRATE 100 MCG/2 ML VL ONE (13:36)
--- NOTE | 2025-01-28 13:59 | DVHOP2 ---
Operative Report DATE OF OPERATION: 01/28/25 PROCEDURE: Diagnostic Colonoscopy. PREOPERATIVE INDICATION: The patient is a 44 -year-old male undergoing colonoscopy for severe anemia and rectal bleeding POSTOPERATIVE DIAGNOSES: 1. Patient had one to 2+ engorged internal hemorrhoids and 2+ external hemorrhoids which were the likely source of bleeding 2. Otherwise essentially completely normal colonoscopy examination up to the cecum and terminal ileum, patient had good bowel prep and there was no fresh or old blood in the colon PROCEDURE PERFORMED BY: Rosaura Anaya M.D. SCOPE: Olympus videocolonoscope. ASA CLASS: 2 PREOPERATIVE MEDICATIONS: Versed 5 mg, Fentanyl 100 mcg, Benadryl 50 mg PROCEDURE IN DETAIL: After obtaining an informed consent, the patient was placed on left lateral decubitus position. He was then sedated with the above medications. A rectal examination was performed that was somewhat painful with palpable hemorrhoids The colonoscope was then passed through the anus into the rectosigmoid and through the descending, transverse, and ascending colon up to the cecum with visualization of the appendiceal orifice, base of the cecum and the ileocecal valve. The colonoscope was then withdrawn. The distal 5-10 cm of the terminal ileum were normal Patient had a good bowel prep and there was no fresh or old blood in the colon. There was no colitis, no clear-cut diverticular disease, no polyps or masses noted. On retroflexion and straight on view the patient had 2+ engorged internal hemorrhoids and 2+ external hemorrhoids The patient tolerated the procedure well without difficulty. WITHDRAWAL TIME: 7 minutes QUALITY OF THE PREP: [place] Bowel Prep score: 9. COMPLICATIONS : None SPECIMENS: None DISPOSITION: Transfer back to the floor Stable PLAN: 1. Repeat colonoscopy in 10 years 2. Resume GI soft diet advance as tolerated 3. Local anorectal hemorrhoidal care 4. Surgical follow up to decide on surgical versus medical management 5. Iron infusions or supplementation ROSAURA ANAYA MD Jan 28, 2025 13:59
--- NOTE | 2025-01-28 15:37 | DVHPN2 ---
Progress Note Date Seen: Jan 28, 2025 Medical Necessity Reason Pt with a Central, PICC or Fol: No Objective vital signs Vital Sign Date Time Temp Pulse Resp B/P (MAP) Pulse Ox O2 Delivery O2 Flow Rate FiO2 01/28/25 13:56 80 15 100 Room Air 0 01/28/25 13:56 100 01/28/25 09:00 97.9 113/68 (83) 97.9 Total Intake and Output 01/27/25 01/27/25 01/28/25 15:00 23:00 07:00 Intake Total 550 ml 853 ml Balance 550 ml 853 ml medications Current Medications Medications Dose Ordered Sig/Adne Route Start Time Stop Time Status Last Admin Dose Admin Pantoprazole Sodium 40 mg BID IV 01/26/25 22:00 01/27/25 22:09 40 MG Acetaminophen 500 mg Q4HPRN PRN PO 01/26/25 15:30 Morphine Sulfate 1 mg Q4HPRN PRN IV 01/26/25 15:30 01/27/25 22:10 1 MG Ergocalciferol 50,000 unit Q7D PO 01/27/25 11:30 01/27/25 12:44 50,000 UNIT laboratory and microbiology Laboratory Tests 01/28/25 06:40 Test 01/28/25 06:40 Range/Units Serum Glucose 79 74-106 mg/dL Microbiology Date/Time Source Procedure Growth Status 01/27/25 06:00 Nose MRSA Screen - Final Complete Problem List/Assessment/Plan Problem List/Assessment/Plan AFEBRILE VSS ABD SOFT COLONOSCOPY DONE EXTERNAL/INTERNAL HEMORRHOIDS INTERMITTENT BLEED PROCEED WITH EXT/INT HEMORRHOIDECTOMY AM BENEFITS RISKS DISCUSSED PT CONSENTS Plan discussed with: Patient My Orders My Orders Orders - MARITA DOWNING MD Procedure Category Date Status Time Clear Liq Diet DIET 01/28/25 Transmitted Dinner Npo (Nothing By DIET 01/29/25 Transmitted Mouth) Diet Breakfast CC Plasma Assessment Blood Product Administration S: 1715 MARITA DOWNING MD Jan 28, 2025 15:37
--- NOTE | 2025-01-28 16:09 | DVHPNRES ---
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 Patient reports generalized weakness, reports that he was recently here and was discharged after the diagnosed with a papillary renal carcinoma and underwent post ablation, he has been bleeding through rectum, maroon colored every day since 2018, which got worsened and patient started to experience generalized weakness, low appetite, was lethargic and felt dizzy. Therefore patient decided come to the ER. He denies any constipation or diarrhea, fever or chills, chest pain or shortness of breaths at this time. 01/27/2025 Patient seen at bedside. Patient appears alert x3, in mild distress, he complains of bleeding per rectum and pain when he strains to use the bathroom. He reported feeling dizzy yesterday but feels better today. He feels generalized weakness because he has not eaten in 3 days, and he is NPO status because possible colonoscopy to be done. He received 4 packets of PRBC and 1 FFP. Hemoglobin today is 6.9. H and H is being monitored. Vitals are stable, no overnight events were reported. Rest of ROS is negative. GI was consulted for possible colonoscopy. Surgery was consulted for possible hemorrhoidectomy. vit. D levels were low and vitamin-D were supplemented. 01/28/2025 Patient seen at bedside. Patient appears alert x3, comfortable, he underwent colonoscopy today which showed patient had 2+ engorged internal hemorrhoids and 2+ external hemorrhoids. Surgery was consulted and recommended to PROCEED WITH EXT/INT HEMORRHOIDECTOMY AM. Objective vital signs Vital Sign Date Time Temp Pulse Resp B/P (MAP) Pulse Ox O2 Delivery O2 Flow Rate FiO2 01/28/25 09:00 97.9 67 18 113/68 (83) 100 97.9 01/28/25 08:05 Room Air* 0 21 Total Intake and Output 01/27/25 01/27/25 01/28/25 15:00 23:00 07:00 Intake Total 550 ml 853 ml Balance 550 ml 853 ml medications Current Medications Medications Dose Ordered Sig/Aden Route Start Time Stop Time Status Last Admin Dose Admin Pantoprazole Sodium 40 mg BID IV 01/26/25 22:00 01/27/25 22:09 40 MG Acetaminophen 500 mg Q4HPRN PRN PO 01/26/25 15:30 Morphine Sulfate 1 mg Q4HPRN PRN IV 01/26/25 15:30 01/27/25 22:10 1 MG Ergocalciferol 50,000 unit Q7D PO 01/27/25 11:30 01/27/25 12:44 50,000 UNIT Examination General: Patient alert and oriented in person, place and time. Patient following commands. HEENT: Normocephalic, atraumatic, moist mucous membranes Respiratory/pulmonary: Clear lungs bilaterally, vesicular murmurs present in almost all lung brunner, no associated crackles or wheezes. Cardiovascular: Normal heart sounds S1 and S2 with no associated murmurs Abdomen: Abdomen nondistended, there is no pain to palpation in any of the abdominal quadrants, no palpable masses. Extremities: There is no peripheral edema present at the lower extremities. Peripheral Pulses: 3+ Radial (R). 3+ Radial (L). 3+ Dorsalis pedis (R). 3+ Dorsalis pedis(L) Skin: No rashes or pruritus, there is no sacral edema present at this time. Neurological: Intact cranial nerves with no focal neurologic deficits laboratory and microbiology Laboratory Tests 01/28/25 06:40 Test 01/28/25 06:40 Range/Units Serum Glucose 79 74-106 mg/dL Microbiology Date/Time Source Procedure Growth Status 01/27/25 06:00 Nose MRSA Screen - Final Complete Problem List/Assessment/Plan Problem List/Assessment/Plan Acute blood loss symptomatic anemia secondary to internal hemorrhoids Acute lower GI bleeding Microcytic anemia Generalized weakness secondary to above -H&H 6.9/20.9 , MCV 64, baseline 01/09 02/19 -Surgeon Dr. Anaya consulted for surgical management of hemorrhoids, and recommended CONSULT GI EVAL AND POSSIBLE COLONOSCOPY INDICATED -4 packed RBCs and 1 FFP ordered , undergoing transfusion -Repeat H&H- today HB 6.9 -Goal hemoglobin greater than 7 -Consider IV iron supplementation - Protonix b.i.d - Soft diet started and tolerating well - consulted GI and recommended Prep for colonoscopy, risks, benefits, and alternatives discussed, informed consent obtained, Consider EGD - colonoscopy done and showed 2+ engorged internal hemorrhoids and 2+ external hemorrhoids - consulted and stated to PROCEED WITH EXT/INT HEMORRHOIDECTOMY AM Papillary renal cell carcinoma status post cryoablation - CT scan shows 3 cm hypodense lesion left kidney 6 mm rounded collection of gas - Denies hematuria - outpatient follow-up Left-sided nephrolithiasis -CT abdomen shows 5 mm calculus near the left ureterovesical junction - follow-up outpatient Degenerative disc disease CT scan shows Degenerative disc changes at L5-S1 with 5-10 mm retrolisthesis Thrombocytosis Monitor platelets DVT PPX: Ambulatory PPI PPX: Protonix Goals of care discussed with patient for 27 minutes: Full code Case discussed with Dr. Bagley Plan discussed with: Patient (RN) My Orders My Orders Orders - RONNY RIDLEY Procedure Category Date Status Time Npo (Nothing By DIET 01/28/25 Transmitted Mouth) Diet Breakfast CC Plasma Assessment Blood Product Administration S: [id number] RONNY RIDLEY RESIDENT Jan 28, 2025 16:09
[2025-01-29] VITALS (7 sets, daily range): BP systolic 105–155; BP diastolic 61–82; PULSE 81–106; RESP 12–20; TEMP 97.5–98.1; O2SAT 96–100
[2025-01-29 07:50] LABS: Hematocrit 21.8 % (41.0-53.0); Mean Corpuscular Hemoglobin 23.9 pg (28.0-32.0); Mean Corpuscular Volume 73.9 fL (80.0-100.0); Nucleated Red Blood Cells % 0.4 %
[2025-01-29 07:58] LABS: Hemoglobin 7.1 g/dL (13.5-17.5)
[2025-01-29 08:08] LABS: Calcium 9.1 mg/dL (8.7-10.4); Chloride 106 mmol/L (98-107); Potassium 4.0 mmol/L (3.5-5.1); Sodium 139 mmol/L (136-145)
[2025-01-29 08:09] LABS: Anion Gap 8 (5-15); Carbon Dioxide 25 mmol/L (20-31)
[2025-01-29 08:14] LABS: BUN/Creatinine Ratio 8.2 (10.0-20.0); Blood Urea Nitrogen 9 mg/dL (9-23); Glucose 86 mg/dL (74-106)
[2025-01-29] MEDS: GELATIN 1 SPONGE SIZE 100 TOP ONE (09:02)
[2025-01-29] MEDS: BUPIVACAINE 0.5% P/F INJ 10 ML VIAL ONE (09:02)
[2025-01-29] MEDS: LIDOCAINE 2% JELLY 11ml (GLYDO) ONE (09:02)
[2025-01-29] MEDS ORDERED: MIDAZOLAM HCL 2MG/2ML 2ml VIAL (1mg/ml) ONE (09:29)
[2025-01-29] MEDS ORDERED: fentaNYL CITRATE 100 MCG/2 ML VL ONE (09:29)
[2025-01-29] MEDS ORDERED: hydrALAZINE HCL 20 MG/ML VL IV PRN (09:45)
[2025-01-29] MEDS ORDERED: MIDAZOLAM HCL 2MG/2ML 2ml VIAL (1mg/ml) IV PRN (09:45)
[2025-01-29] MEDS: ONDANSETRON HCL 4 MG/2 ML VIAL IV ONE (09:45)
[2025-01-29] MEDS ORDERED: MORPHINE SULFATE 4 MG/ML SYR/VIAL IV PRN (09:45)
[2025-01-29] MEDS ORDERED: PROPOFOL 10 MG/ML 20 ML IV ONE (09:46)
[2025-01-29] MEDS: BUPIVACAINE 0.25% INJ 50ML VIAL ONE (10:01)
[2025-01-29] MEDS: NEOMYCIN-BACITRACIN-POLYM 15GM TOP OINT TOP ONE (10:29)
--- NOTE | 2025-01-29 10:38 | DVHOP2 ---
Operative Report [id number] COMPLEX EXT /INT HEMORRHOIDS 9, 7, 5, 1 O CLOCK EUA COMPLEX EXT/INT HEMORRHOIDECTOMY X 4 ONE PACKING GAUZE TO B REMOVED IN RECOVERY ROOM BEFORE TRANSFER TO FLOOR EBL 10 CC NO COMPLICATIONS MARITA DOWNING MD Jan 29, 2025 10:38
[2025-01-29] MEDS: HYDROmorphone HCL 2 MG/ML VL/or syr IV PRN (11:09)
--- NOTE | 2025-01-29 11:10 | DVHOP ---
DATE OF SURGERY: 01/29/2025 PREOPERATIVE DIAGNOSES: Complex external and internal hemorrhoids located at the 9 o'clock, 7 o'clock, 5 o'clock, and 1 o'clock locations. POSTOPERATIVE DIAGNOSES: Complex external and internal hemorrhoids located at the 9 o'clock, 7 o'clock, 5 o'clock, and 1 o'clock locations. PROCEDURE: External and internal hemorrhoidectomy in all 4 locations. SURGEON: Jassi Anaya MD MODEL [employer] FIREARMS: None. ANESTHESIA: Local IV sedation DESCRIPTION OF PROCEDURE: The patient was prepped and draped in the usual sterile fashion in the prone jackknife position. A speculum examination was carried out. The hemorrhoid tissue was noted in the 9 o'clock, 7 o'clock, 5 o'clock, and 1 o'clock locations. They were all complex external and internal hemorrhoids and they were amputated at the base using the LigaSure device, the 9 o'clock first, then the 7 o'clock, then the 5 o'clock, and the 1 o'clock after that. This was done making sure that the sphincteric muscle was left intact at all times. When this was all done, the tissue was sent for pathology. The area was secured for hemostasis. Irrigation was performed and there were no complications noted. Xeroform gauze impregnated with lidocaine and Neosporin was placed to be removed at the time of release to his room before he left the recovery room and nurses were instructed on that. The patient tolerated the procedure well and was taken back to the recovery room in a stable condition. MD HILARIO Tracy/KIKA/DILLON TID: [id number] RECEIPT: [id number] cc: Jose Ryan MD
[2025-01-29] MEDS ORDERED: MORPHINE SULFATE INJ 2 MG/ml SYRG IV PRN (13:00)
[2025-01-29] MEDS: HYDROcodone-ACET 5/325MG TAB PO PRN (13:52)
--- NOTE | 2025-01-29 14:25 | DVHPN2 ---
Progress Note - Dictate Date Seen: Jan 29, 2025 Medical Necessity Reason Pt with a Central, PICC or Fol: No Subjective No new complaints Patient underwent a hemorrhoidectomy surgery today He is awake alert and bedside complaining of some postop pain vital signs Vital Sign Date Time Temp Pulse Resp B/P (MAP) Pulse Ox O2 Delivery O2 Flow Rate FiO2 01/29/25 12:39 95 16 145/95 01/29/25 11:00 100 01/29/25 10:39 Mask 5.0 01/29/25 10:39 97.5 97.5 01/29/25 10:39 99 Total Intake and Output 01/28/25 01/28/25 01/29/25 15:00 23:00 07:00 Intake Total 520 ml 540 ml 1100 ml Output Total 1 ml Balance 520 ml 540 ml 1099 ml medications Current Medications Medications Dose Ordered Sig/Aden Route Start Time Stop Time Status Last Admin Dose Admin Pantoprazole Sodium 40 mg BID IV 01/26/25 22:00 01/28/25 21:29 40 MG Acetaminophen 500 mg Q4HPRN PRN PO 01/26/25 15:30 Ergocalciferol 50,000 unit Q7D PO 01/27/25 11:30 01/27/25 12:44 50,000 UNIT Morphine Sulfate 2 mg Q1HP PRN IV 01/29/25 13:00 Acetaminophen/ Hydrocodone Bitart 1 tab Q4HPRN PRN PO 01/29/25 13:00 01/29/25 13:52 1 TAB objective General: Alert and oriented x4 Head: NC/AT EOMI PERRLA-op clear heart: Regular rate and rhythm abdomen: Soft nontender nondistended Extremity: No clubbing cyanosis or edema laboratory and microbiology Laboratory Tests 01/29/25 05:50 Test 01/29/25 05:50 Range/Units Serum Glucose 86 74-106 mg/dL Problems(with codes): (1) Gastrointestinal hemorrhage, unspecified (2) Symptomatic anemia (3) Rectal bleeding (4) Hemorrhoids, internal (5) Severe anemia (6) Generalized weakness Prognosis Plan Continue supportive care Local anorectal hemorrhoidal care IV antibiotics Pain control Stool softeners Sitz baths Plan discussed with: Patient, Spouse CC Plasma Assessment Blood Product Administration S: [id number] ROSAURA DOWNING MD Jan 29, 2025 14:25
[2025-01-29] MEDS: MORPHINE SULFATE INJ 2 MG/ml SYRG IV PRN (16:32)
--- NOTE | 2025-01-29 18:52 | DVHPNRES ---
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 Patient reports generalized weakness, reports that he was recently here and was discharged after the diagnosed with a papillary renal carcinoma and underwent post ablation, he has been bleeding through rectum, maroon colored every day since 2018, which got worsened and patient started to experience generalized weakness, low appetite, was lethargic and felt dizzy. Therefore patient decided come to the ER. He denies any constipation or diarrhea, fever or chills, chest pain or shortness of breaths at this time. 01/27/2025 Patient seen at bedside. Patient appears alert x3, in mild distress, he complains of bleeding per rectum and pain when he strains to use the bathroom. He reported feeling dizzy yesterday but feels better today. He feels generalized weakness because he has not eaten in 3 days, and he is NPO status because possible colonoscopy to be done. He received 4 packets of PRBC and 1 FFP. Hemoglobin today is 6.9. H and H is being monitored. Vitals are stable, no overnight events were reported. Rest of ROS is negative. GI was consulted for possible colonoscopy. Surgery was consulted for possible hemorrhoidectomy. vit. D levels were low and vitamin-D were supplemented. 01/28/2025 Patient seen at bedside. Patient appears alert x3, comfortable, he underwent colonoscopy today which showed patient had 2+ engorged internal hemorrhoids and 2+ external hemorrhoids. Surgery was consulted and recommended to PROCEED WITH EXT/INT HEMORRHOIDECTOMY AM. 01/29/2025 Patient seen at bedside. Patient appears alert x3, in moderate distress, patient underwent a hemorrhoidectomy today, is started on clear liquid diet and is tolerating well. GI recommended to Continue supportive care Local anorectal hemorrhoidal care , continue IV antibiotics, Pain control, Stool softeners , Sitz baths. Pain control with morphine 2 mg, and [place] PRN. Objective vital signs Vital Sign Date Time Temp Pulse Resp B/P (MAP) Pulse Ox O2 Delivery O2 Flow Rate FiO2 01/29/25 18:00 98.0 99 18 117/81 (93) 96 98.0 01/29/25 10:39 Mask 5.0 01/29/25 10:39 99 Total Intake and Output 01/28/25 01/28/25 01/29/25 15:00 23:00 07:00 Intake Total 520 ml 540 ml 1100 ml Output Total 1 ml Balance 520 ml 540 ml 1099 ml medications Current Medications Medications Dose Ordered Sig/Aden Route Start Time Stop Time Status Last Admin Dose Admin Pantoprazole Sodium 40 mg BID IV 01/26/25 22:00 01/28/25 21:29 40 MG Acetaminophen 500 mg Q4HPRN PRN PO 01/26/25 15:30 Ergocalciferol 50,000 unit Q7D PO 01/27/25 11:30 01/27/25 12:44 50,000 UNIT Morphine Sulfate 2 mg Q1HP PRN IV 01/29/25 13:00 01/29/25 16:32 2 MG Acetaminophen/ Hydrocodone Bitart 1 tab Q4HPRN PRN PO 01/29/25 13:00 01/29/25 18:03 1 TAB Examination General: Patient alert and oriented in person, place and time. Patient following commands. HEENT: Normocephalic, atraumatic, moist mucous membranes Respiratory/pulmonary: Clear lungs bilaterally, vesicular murmurs present in almost all lung brunner, no associated crackles or wheezes. Cardiovascular: Normal heart sounds S1 and S2 with no associated murmurs Abdomen: Abdomen nondistended, there is no pain to palpation in any of the abdominal quadrants, no palpable masses. Extremities: There is no peripheral edema present at the lower extremities. Peripheral Pulses: 3+ Radial (R). 3+ Radial (L). 3+ Dorsalis pedis (R). 3+ Dorsalis pedis(L) Skin: No rashes or pruritus, there is no sacral edema present at this time. Neurological: Intact cranial nerves with no focal neurologic deficits laboratory and microbiology Laboratory Tests 01/29/25 05:50 Test 01/29/25 05:50 Range/Units Serum Glucose 86 74-106 mg/dL Microbiology Date/Time Source Procedure Growth Status 01/27/25 06:00 Nose MRSA Screen - Final Complete Labs and/or images reviewed: Labs reviewed by me, Image(s) reviewed by me Problem List/Assessment/Plan Problem List/Assessment/Plan Acute blood loss symptomatic anemia secondary to internal hemorrhoids Acute lower GI bleeding Microcytic anemia Generalized weakness secondary to above -H&H 6.9/20.9 , MCV 64, baseline 01/09 02/19, -Surgeon Dr. Anaya consulted for surgical management of hemorrhoids, and recommended CONSULT GI EVAL AND POSSIBLE COLONOSCOPY INDICATED -5 packed RBCs and 1 FFP ordered , undergoing transfusion -Repeat H&H- today HB 7.1 -Goal hemoglobin greater than 7 -Consider IV iron supplementation - Protonix b.i.d - Soft diet started and tolerating well - consulted GI and recommended Prep for colonoscopy, risks, benefits, and alternatives discussed, informed consent obtained, Consider EGD - colonoscopy done and showed 2+ engorged internal hemorrhoids and 2+ external hemorrhoids - consulted and stated to PROCEED WITH EXT/INT HEMORRHOIDECTOMY AM - patient underwent hemorrhoidectomy today - GI recommended to Continue supportive care Local anorectal hemorrhoidal care , continue IV antibiotics, Pain control, Stool softeners , Sitz baths. Pain control with morphine 2 mg, and [place] PRN. Papillary renal cell carcinoma status post cryoablation - CT scan shows 3 cm hypodense lesion left kidney 6 mm rounded collection of gas - Denies hematuria - outpatient follow-up Left-sided nephrolithiasis -CT abdomen shows 5 mm calculus near the left ureterovesical junction - follow-up outpatient Degenerative disc disease CT scan shows Degenerative disc changes at L5-S1 with 5-10 mm retrolisthesis Thrombocytosis Monitor platelets DVT PPX: Ambulatory PPI PPX: Protonix Goals of care discussed with patient for 27 minutes: Full code Case discussed with Dr. Bagley Plan discussed with: Patient (RN), Other My Orders My Orders Orders - RONNY RIDLEY RESIDENT Procedure Category Date Status Time Insert Midline ORDERS 01/29/25 Transmitted 12:46 Morphine Sulfate PHA 01/29/25 In Process Injection 13:00 Hydrocodone-Acet PHA 01/29/25 In Process 5/325mg Tab ([place] 13:00 CC Plasma Assessment Blood Product Administration S: [id number] RONNY RIDLEY RESIDENT Jan 29, 2025 18:52
[2025-01-30 01:00] VITALS: BP_SYST 69; PULSE 88; RESP 19; TEMP 97.9; O2SAT 100
[2025-01-30 05:00] VITALS: BP 134/67; PULSE 69; RESP 16; TEMP 98.2; O2SAT 100
[2025-01-30 09:00] VITALS: BP 143/84; PULSE 100; RESP 20; TEMP 98.6; O2SAT 95
--- NOTE | 2025-01-30 10:12 | DVHDSRES ---
Discharge Summary Date of Admission Resident Creating Document: RONNY RIDLEY Jan 26, 2025 at 14:50 Date of Discharge: Jan 30, 2025 Admitting Diagnosis Acute blood loss symptomatic anemia secondary to internal hemorrhoids Labs/Diagnostic Data: Laboratory Results Test 01/30/25 09:37 01/29/25 05:50 01/27/25 10:43 01/27/25 06:33 Eosinophils (%) (Auto) 2.4 % (0.0-7.0) Eosinophils # (Auto) 0.1 10 ^3/uL (0-0.8) Basophils # (Auto) 0 10 ^3/uL (0-0.2) Nucleated Red Blood Cells 0.4 % Haptoglobin 143 mg/dL (23-355) Differential Total Cells Counted 100.0 (100) Neutrophils % (Manual) 83 (37.0-80.0) Band Neutrophils % (Manual) 0 Lymphocytes % (Manual) 14 (10.0-50.0) Monocytes % (Manual) 2 (0-12) Eosinophils % (Manual) 1 (0-7) Basophils % (Manual) 0 (0.0-2.0) Metamyelocytes % (manual) 0 Myelocytes % (Manual) 0 Promyelocytes % (Manual) 0 Blast Cells % (Manual) 0 Reactive Lymphocytes 0 Platelet Estimate Increased Hypochromasia (manual) Moderate Anisocytosis (manual) Marked Microcytosis Moderate Total Bilirubin 1.7 mg/dL (0.2-1.0) Aspartate Amino Transferase (AST) 16 U/L (13-40) Alanine Aminotransferase (ALT) 12 U/L (7-40) Alkaline Phosphatase 48 U/L (46-116) Lactate Dehydrogenase 207 U/L (120-246) Total Protein 6.9 g/dL (5.7-8.2) Albumin 4.6 g/dL (3.2-4.8) Test 01/27/25 06:05 01/26/25 21:30 01/26/25 11:29 Urine Color Light-yellow (Yellow) Urine Clarity Clear (Clear) Urine pH 6.0 (5.0-9.0) Urine Specific [place] 1.011 (1.001-1.035) Urine Protein Negative (Negative) Urine Ketones Negative (Negative) Urine Blood 2+ /uL (Negative) Urine Nitrite Negative (Negative) Urine Bilirubin Negative (Negative) Urine Urobilinogen Normal mg/dL (Negative) Urine Leukocyte Esterase Negative /uL (Negative) Urine RBC <1 /hpf (0 - 3) Urine Microscopic WBC 6 /HPF (0-3) Urine Squamous Epithelial Cells None seen /hpf (<5) Urine Bacteria None seen /hpf (None Seen) Urine Mucus Few (None Seen) Urine Glucose Normal mg/dL (Normal) Urine Opiates Screen Neg (NEGATIVE) Urine Fentanyl Screen Neg (NEGATIVE) Urine Barbiturates Screen Neg (NEGATIVE) Urine Phencyclidine Screen Neg (NEGATIVE) Urine Amphetamines Screen Neg (NEGATIVE) Urine Benzodiazepines Screen Neg (NEGATIVE) Urine Cocaine Screen Neg (NEGATIVE) Urine Cannabinoids Screen Pos (NEGATIVE) Prothrombin Time 11.4 sec (9.3-11.8) Prothrombin Time INR 1.08 (0.9-1.15) Activated Partial Thromboplast Time 20.7 SEC (24.5-34.5) Reticulocyte Count (auto) 2.77 % (0.5-1.5) Magnesium Level 2.1 mg/dL (1.6-2.6) Direct Bilirubin 0.1 mg/dL (<0.3) Vitamin B12 Level 430 pg/mL (211-911) Vitamin D 25-Hydroxy 22.4 ng/mL (30.0-100) Thyroid Stimulating Hormone (TSH) 1.05 uIU/mL (0.55-4.78) Plasma/Serum Blood Alcohol < 3.0 mg/dL (<10) Brief Hx & Hospital Course: This is a 44-year-old male with 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 Patient reports generalized weakness, reports that he was recently here and was discharged after the diagnosed with a papillary renal carcinoma and underwent post ablation, he has been bleeding through rectum, maroon colored every day since 2018, which got worsened and patient started to experience generalized weakness, low appetite, was lethargic and felt dizzy. Therefore patient decided come to the ER. He denies any constipation or diarrhea, fever or chills, chest pain or shortness of breaths at this time. Brief hospital course: Patient came to the hospital with acute blood loss symptomatic anemia secondary to internal hemorrhoids, acute lower GI bleeding, microcytic anemia, generalized weakness secondary to blood loss patient came in with hemoglobin of 4, 5 packed RBC and 1 FFP was ordered and surgical consult was placed for bleeding hemorrhoids, and consulted GI for possible colonoscopy. Colonoscopy was done and showed 2+ engorged internal hemorrhoids and 2+ external hemorrhoids. Surgery was consulted and stated to proceed with external, internal hemorrhoidectomy. Patient underwent hemorrhoidectomy. consulted GI and recommended Prep for colonoscopy, risks, benefits, and alternatives discussed, informed consent obtained, Consider EGD. GI recommended to continue supportive care Local anorectal hemorrhoidal care , continue IV antibiotics, Pain control, Stool softeners , Sitz baths. Pain control with morphine 2 mg, and [place] PRN. Repeat hemoglobin hematocrit patient's hemoglobin at discharge was 7.1. Patient had status post cryoablation for papillary renal cell carcinoma, CT shows 3 cm hypodense lesion left kidney 6 mm rounded collection of gas. Patient denied any hematuria and was recommended to follow-up outpatient. For left-sided nephrolithiasis CT shows 5 mm calculus near the left ureterovesical junction, patient recommended to follow-up outpatient. Patient has degenerative disc disease, CT shows Degenerative disc changes at L5-S1 with 5-10 mm retrolisthesis. Patient has thrombocytosis and palate was were monitored. Patient is stable for discharge, communicated understanding of his discharge plan, knows to follow-up with outpatient PCP. General: Patient alert and oriented in person, place and time. Patient following commands. HEENT: Normocephalic, atraumatic, moist mucous membranes Respiratory/pulmonary: Clear lungs bilaterally, vesicular murmurs present in almost all lung brunner, no associated crackles or wheezes. Cardiovascular: Normal heart sounds S1 and S2 with no associated murmurs Abdomen: Abdomen nondistended, there is no pain to palpation in any of the abdominal quadrants, no palpable masses. Extremities: There is no peripheral edema present at the lower extremities. Peripheral Pulses: 3+ Radial (R). 3+ Radial (L). 3+ Dorsalis pedis (R). 3+ Dorsalis pedis(L) Skin: No rashes or pruritus, there is no sacral edema present at this time. Neurological: Intact cranial nerves with no focal neurologic deficits Discharge instructions: Patient recommended pain control PRN Stool softeners Take iron sulfate, pantoprazole Sitz baths, soft diet Exercise Operations or Procedures ORDERING PHYSICIAN: ANNETTE BRIGHT MD PROCEDURE(s): ABPL - CT AB PEL WO CON-NO ORAL OR IV REASON: hemorroids ORDER NUMBER(s): [id number], ACCESSION NUMBER(s): [id number] Exam: CT CT AB PEL WO CON-NO ORAL OR IV History: hemorroids Comparison Study: MRI MRI ABD PLEVIS W/WO CONT on DOS: 01/02/25, CT CT AB PEL WITH IV CON ONLY on DOS: 12/31/24, CT CT AB PEL WO CON-NO ORAL OR IV on DOS: 07/10/24 TECHNIQUE: Multidetector CT of the abdomen was performed from lung bases to pubic symphysis. Imaging was performed without IV contrast. Axial, coronal and sagittal multiplanar reformats were obtained from the axial data set by the technologist. Radiation Dose Information: CT Dose: CTDI volume is 6.72 mGy. Dose-length product is 368.91 mGy*cm FINDINGS: Evaluation of solid organs is limited due to lack of intravenous contrast use. Findings: Lung Bases: No acute or significant lung base finding. Normal heart size. No pleural or pericardial effusion. Liver: The liver is normal in size. No focal lesions. Gallbladder and Biliary Tree: Unremarkable Spleen: Unremarkable Pancreas: The pancreas is grossly normal in appearance. Adrenal Glands: Unremarkable Kidneys: 3 cm hypodense lesion mid left kidney with a 6 mm bubble of gas within it. Margins not well identified Bladder: 5 mm calculus near the left ureterovesical junction. Bowel: The stomach is grossly normal in appearance. Small bowel and colon are normal in caliber and distribution. Normal appendix is visualized in the right lower quadrant without findings of appendicitis. Ascites: Absent Lymphadenopathy: No mesenteric, retroperitoneal or periportal lymphadenopathy. Abdominal Wall and Mesentery: Unremarkable. Vasculature: The visualized abdominal aorta is normal in size and caliber. Evaluation of abdominal and pelvic vessels is limited due to lack of intravenous contrast. Pelvic Organs: Unremarkable Musculoskeletal: No aggressive focal bony lesions, acute fractures or dislocation. Degenerative disc changes at L5-S1 with irregularity of the inferior endplate of L5 and superior endplate of S1. Soft tissues: Unremarkable IMPRESSION: 1. 3 cm hypodense lesion left kidney 6 mm rounded collection of gas. Margins are not well identified correlate with known medical history for lesion in the left kidney. 2. 5 mm calcification in the pelvis. Located near the left ureteral vesicle junction series 2, image 72. 3. Degenerative disc changes at L5-S1 with 5-10 mm retrolisthesis. Radiation optimization: All CT scans at this facility use at least one of these dose optimization techniques: automated exposure control mA and/or kV adjustment per patient size (includes targeted exams where dose is matched to clinical indication) or iterative reconstruction. HS:Y Condition at Discharge: Stable Final Diagnosis/Problems List Acute blood loss symptomatic anemia secondary to internal hemorrhoids Acute lower GI bleeding Microcytic anemia Generalized weakness secondary to above Papillary renal cell carcinoma status post cryoablation Left-sided nephrolithiasis Degenerative disc disease Discharge Disposition: Home Discharge Instruct/Medications Scheduled Ergocalciferol (Vitamin D 83392 Unit), 50,000 UNIT PO Q7D Esomeprazole Magnesium Trihydr (Nexium), 40 MG PO DAILY Ferrous Sulfate (Ferrous Sulfate), 325 MG PO MWF Discharge Statement: "Patient was advised to return to the ER or call 911 if any headaches, dizziness, shortness of breath, chest pain, abdominal pain, bleeding, fevers, or worsening of medical condition. Patient was counseled about treatment plan, medications, possible side effects, patientverbalized understanding. All questions were answered to the best of my ability. This discharge took greater then 30 minutes in planning, reviewing documentation, counseling the patient, and discussing with other team members." ASSESSMENT ASSESSMENT Assessment RONNY RIDLEY RESIDENT Jan 30, 2025 10:12
[2025-01-30 10:15] LABS: Hematocrit 23.1 % (41.0-53.0); Hemoglobin 7.3 g/dL (13.5-17.5); Mean Corpuscular Hemoglobin 23.2 pg (28.0-32.0); Mean Corpuscular Volume 73.7 fL (80.0-100.0); Nucleated Red Blood Cells % 0.1 %
[2025-01-30 10:28] LABS: Chloride 103 mmol/L (98-107); Potassium 4.4 mmol/L (3.5-5.1); Sodium 138 mmol/L (136-145)
[2025-01-30 10:29] LABS: Anion Gap 10 (5-15); Carbon Dioxide 25 mmol/L (20-31)
[2025-01-30 10:30] LABS: Calcium 10.1 mg/dL (8.7-10.4)
[2025-01-30 10:34] LABS: BUN/Creatinine Ratio 7.3 (10.0-20.0); Glucose 88 mg/dL (74-106)
[2025-01-30 10:40] LABS: Blood Urea Nitrogen 8 mg/dL (9-23)
--- NOTE | 2025-01-30 10:50 | DVHPN2 ---
Progress Note Date Seen: Jan 30, 2025 Medical Necessity Reason Pt with a Central, PICC or Fol: No Objective vital signs Vital Sign Date Time Temp Pulse Resp B/P (MAP) Pulse Ox O2 Delivery O2 Flow Rate FiO2 01/30/25 09:00 98.6 100 20 143/84 (103) 95 98.6 01/30/25 08:00 Room Air* 0 21 Total Intake and Output 01/29/25 01/29/25 01/30/25 15:00 23:00 07:00 Intake Total 200 ml 520 ml 360 ml Output Total 1500 ml Balance 200 ml 520 ml -1140 ml medications Current Medications Medications Dose Ordered Sig/Aden Route Start Time Stop Time Status Last Admin Dose Admin Pantoprazole Sodium 40 mg BID IV 01/26/25 22:00 01/30/25 09:44 40 MG Acetaminophen 500 mg Q4HPRN PRN PO 01/26/25 15:30 Ergocalciferol 50,000 unit Q7D PO 01/27/25 11:30 01/27/25 12:44 50,000 UNIT Morphine Sulfate 2 mg Q1HP PRN IV 01/29/25 13:00 01/30/25 03:22 2 MG Acetaminophen/ Hydrocodone Bitart 1 tab Q4HPRN PRN PO 01/29/25 13:00 01/30/25 09:45 1 TAB laboratory and microbiology Laboratory Tests 01/30/25 09:37 Test 01/30/25 09:37 Range/Units Serum Glucose 88 74-106 mg/dL Microbiology Date/Time Source Procedure Growth Status 01/27/25 06:00 Nose MRSA Screen - Final Complete Problem List/Assessment/Plan Problem List/Assessment/Plan AFEBRILE VSS S/P EXT/INT HEMORRHOIDECTOMY IDANIA DIET NO ACTIVE BLEED NO COMPLICATIONS CLEARED FOR DISCHARGE INSTRUCTIONS RE DIET AVOID CONSTIPATION SHIVA BATH F/UP GIVEN Plan discussed with: Patient My Orders My Orders Orders - MARITA DOWNING MD Procedure Category Date Status Time Communication Order ORDERS 01/29/25 Transmitted 11:11 Clear Liq Diet DIET 01/29/25 Transmitted Dinner CC Plasma Assessment Blood Product Administration S: [id number] MARITA DOWNING MD Jan 30, 2025 10:50
[2025-01-30 13:00] VITALS: BP 121/70; PULSE 81; RESP 18; TEMP 97.2; O2SAT 100
[2025-01-30] MEDS ORDERED: FER325T PO (13:24)
[2025-01-30] MEDS ORDERED: ERGO1CAP23 PO (13:24)
[2025-01-30] MEDS ORDERED: ESOM40CA39 PO (13:24)
[2025-01-30 14:06] VITALS: TEMP 37
== END 2025-01-30 15:00 | disposition home or self-care (01) | DRG 348 ==
LOC: ER 10:16 → OVERFLOW 14:50 → TELE-WESTW 22:52
PROVIDERS: ADMIT Student in an Organized Health Care Education/Training Program; ATTEND Student in an Organized Health Care Education/Training Program
PROC: 30233N1 Transfusion of Nonautologous Red Blood Cells into Peripheral Vein, Percutaneous Approach (ICD-10-PCS; 2025-01-26)
PROC: 30233K1 Transfusion of Nonautologous Frozen Plasma into Peripheral Vein, Percutaneous Approach (ICD-10-PCS; 2025-01-27)
PROC: 0DJD8ZZ Inspection of Lower Intestinal Tract, Via Natural or Artificial Opening Endoscopic (ICD-10-PCS; 2025-01-28)
PROC: 06BY0ZC Excision of Hemorrhoidal Plexus, Open Approach (ICD-10-PCS; principal; 2025-01-29 09:27)
DX: K64.4 Residual hemorrhoidal skin tags (principal); K92.2 Gastrointestinal hemorrhage, unspecified; K64.8 Other hemorrhoids; E78.5 Hyperlipidemia, unspecified; D49.512 Neoplasm of unspecified behavior of left kidney; D49.511 Neoplasm of unspecified behavior of right kidney; K76.9 Liver disease, unspecified; M51.379 Other intervertebral disc degeneration, lumbosacral region without mention of lumbar back pain or lower extremity pain; D50.9 Iron deficiency anemia, unspecified; D75.839 Thrombocytosis, unspecified; Z88.0 Allergy status to penicillin; Z91.013 Allergy to seafood; Z79.899 Other long term (current) drug therapy; Z82.49 Family history of ischemic heart disease and other diseases of the circulatory system; Z83.3 Family history of diabetes mellitus; Z80.0 Family history of malignant neoplasm of digestive organs; Z85.528 Personal history of other malignant neoplasm of kidney
CPT/HCPCS: 36415; 36430; 45378; 46612; 74176; 80048; 80053; 80076; 80307; 80320; 81001; 82306; 82607; 83010; 83615; 83735; 84443; 85007; 85014; 85018; 85025; 85027; 85045; 85610; 85730; 86850; 86880; 86900; 86901; 86920; 87081; G0378; J1100; J1956; J2250; J2470; J2704; J3490